=== PATIENT | female | born 1985 | race Caucasian/White ===

== ENCOUNTER 2021-04-04 15:08 | Emergency (ER) | payer OTHER, SELFPAY ==
--- NOTE | 2021-04-04 | ECG_ITS ---
Test Reason : CHEST PAIN Blood Pressure : / mmHG Vent. Rate : 100 BPM Atrial Rate : 100 BPM P-R Int : 134 ms QRS Dur : 078 ms QT Int : 356 ms P-R-T Axes : 068 069 032 degrees QTc Int : 459 ms Normal sinus rhythm Normal ECG When compared with ECG of 11-APR-2012 23:38, No significant change was found Referred By: Generic ED Physician Electronically Signed By:GLORIA LIM
--- NOTE | ~2021-04-04 | XR_ITS ---
EXAMINATION: XR CHEST CLINICAL INFORMATION: Chest pain COMPARISON: Chest radiograph 08/16/2007 TECHNIQUE: Frontal view of the chest was obtained. FINDINGS: No significant abnormality is noted involving the heart, lungs, mediastinum, bony thorax or soft tissues. Since 2006, there is been progression of some minimal degenerative changes in the thoracic spine. XR/XR chest 1V IMPRESSION: Unremarkable examination. No acute intrathoracic disease.
[2021-04-04 16:09] VITALS: BP 137/77; PULSE 117; RESP 18; TEMP 37.3; O2SAT 99
[2021-04-04 16:39] VITALS: BP 121/69; PULSE 90; RESP 18; TEMP 36.9; O2SAT 98; BMI 36.1
--- NOTE | 2021-04-04 16:55 | ED_ITS ---
HPI - Chest Pain General Chief Complaint: Chest Pain Stated Complaint: chest pain Time Seen by Provider: 04/04/21 16:52 Source: patient Mode of arrival: ambulatory Limitations: no limitations History of Present Illness MD complaint: chest pain Onset (ago): hour(s) (several) Timing of current episode: constant Onset: during rest Pain location: substernal Pain radiation: none Severity: moderate Quality: burning Relieving factors: nothing Exacerbating factors: nothing Associated symptoms: nausea Treatment prior to arrival: none Related Data Previous Rx's Medication Instructions Recorded omeprazole 20 mg capsule,delayed 20 mg PO DAILY #21 cap 04/04/21 release Allergies Allergy/AdvReac Type Severity Reaction Status Date / Time oxycodone [From Percocet] Allergy Mild ITCH/HIVES Unverified 05/06/20 15:20 BLUE CHEESE Allergy Unknown HIVES Uncoded 05/06/20 15:20 Percocet Allergy Unknown hives Uncoded 05/16/12 00:00 Review of Systems Review of Systems: Constitutional : No Weight loss, No Fever, No Chills ENT/Mouth : No sore throat, No Rhinorrhea Eyes: No Eye Pain, No Swelling Cardiovascular : pos Chest Pain, no SOB, no Dyspnea on Exertion, No Orthopnea, No Edema, No Palpitations Respiratory : No Cough, No Sputum Gastrointestinal : pos Nausea, No Vomiting, No Diarrhea, No abdominal Pain, No Hematochezia, No Melena Genitourinary : No Dysuria, No Urinary Frequency Musculoskeletal : No joint pain, No Myalgias, No Joint Swelling Skin : No Skin Lesions, No rash Neuro : No Weakness, No Numbness, No Dizziness, No Headache Psych : No Anxiety/Panic, No Depression Heme/Lymph: No Bruising, No Lymphadenopathy Endocrine : No Polyuria, No Polydipsia All other systems reviewed and are negative [facility] Past Medical History Attestation statement: The following information was validated with the patient. Medical History (Updated 04/04/21 @ 19:01 by Rhonda Bettencourt DO) Encounter for behavioral health screening GERD (gastroesophageal reflux disease) History of behavioral and mental health problems Surgical History (Updated 04/04/21 @ 17:06 by Rhonda Bettencourt DO) H/O section Social History Social History (Updated 04/04/21 @ 17:06 by Rhonda Bettencourt DO) Patient Tobacco Use Status: Never used Tobacco Use of substances other than those prescribed or required for medical reasons: No Advance Directives: No Advance Directives Information Provided: No Patient : No Physical Exam Vital Signs: Vital Signs: Last Vital Signs Temp 98.5 F 04/04/21 18:28 Pulse 95 04/04/21 18:28 Resp 18 04/04/21 18:28 BP 126/75 04/04/21 18:28 Pulse Ox 98 04/04/21 18:28 Body Mass Index 36.1 Appearance: Alert. Oriented X3. No acute distress. Eyes: Pupils equal, round and reactive to light. ENT: Pharynx normal. Neck: Normal inspection. Neck supple. CVS: Normal heart rate and rhythm. Pulses normal. Respiratory: No respiratory distress. Breath sounds normal. Abdomen: Soft and nontender. Skin: Skin warm and dry. Normal skin color. Normal skin turgor. Extremities: No lower extremity edema. No calf ttp Neuro: Oriented X 3. No motor deficit. No sensory deficit. Course Course Course Narrative: negative workup stable for DC MDM - Chest Pain MDM Narrative Medical decision making narrative: 36 yo female otherwise healthy here with c/o burning chest pain and some nausea started early this AM hx of GERD in the past at this time no dyspnea, PERC negative, no sig cardiac risk factors will obtain troponin x 1, treat with GI cocktail. Abdomen is benign as well. Suspect GERD as source of her discomfort. Lab Data Result diagrams: 04/04/21 18:13 04/04/21 18:13 Labs: Lab Results 04/04/21 04/04/21 04/04/21 Range/Units 18:13 18:13 18:13 WBC 9.8 (4.8-10.8) X10*3/uL RBC 4.69 (4.20-5.50) X10*6/uL Hgb 14.4 (12.0-16.0) g/dl Hct 41.7 (37-47) % MCV 88.9 (80-98) fL MCH 30.7 (27.0-33.0) pg MCHC 34.5 (31.0-35.0) g/dl RDW 12.5 (11.0-16.0) % Plt Count 349 (160-400) X10*3/uL MPV 9.3 L (9.4-12.3) fL Immature Gran % (Auto) 0.7 H (0.0-0.4) % Neut % (Auto) 74.0 H (45-73) % Lymph % (Auto) 19.5 L (20-40) % [place] % (Auto) 5.3 (2-11) % Eos % (Auto) 0.3 (0-4) % Baso % (Auto) 0.2 (0-2) % Lymph # (Auto) 1.9 (1.2-4.9) X10*3/uL [place] # (Auto) 0.5 (0.1-1.2) X10*3/uL Eos # (Auto) 0.0 (0.0-0.4) X10*3/uL Baso # (Auto) 0.0 (0.0-0.2) X10*3/uL Abs Immat Gran (auto) 0.07 H (0.00-0.03) X10*3/uL Absolute Neuts (auto) 7.2 (2.0-8.3) X10*3/uL Absolute Nucleated RBC 0.000 (0.0-0.012) X10*3/uL Nucleated RBC % (auto) 0.0 (0.0-0.2) /100WBC Sodium 139 (135-145) mmol/L Potassium 4.2 (3.3-5.1) mmol/L Chloride 105 (96-108) mmol/L Carbon Dioxide 23 (22-29) mmol/L Anion Gap 15 (12-20) BUN 12 (9-16) mg/dL Creatinine 0.96 (0.5-1.4) mg/dL Estim Creat Clear Calc 76.3 Estimated GFR > 60 Random Glucose 82 (60-115) mg/dL Calcium 9.2 (8.4-10.2) mg/dL Magnesium 2.2 (1.6-2.6) mg/dL Total Bilirubin 0.7 (0.0-1.0) mg/dL Direct Bilirubin 0.2 (0.0-0.5) mg/dL AST 19 (5-31) U/L ALT 16 (0-31) U/L Alkaline Phosphatase 65 (39-117) U/L Troponin I High Sens < 3.5 (<3.5-17.0) ng/L Total Protein 7.0 (6.5-8.0) g/dL Albumin 4.5 (3.5-5.0) g/dL Lipase 33 (8-78) U/L COVID-19 (ISAIAS) (Negative) COVID-19 Clin Com 04/04/21 Range/Units 18:13 WBC (4.8-10.8) X10*3/uL RBC (4.20-5.50) X10*6/uL Hgb (12.0-16.0) g/dl Hct (37-47) % MCV (80-98) fL MCH (27.0-33.0) pg MCHC (31.0-35.0) g/dl RDW (11.0-16.0) % Plt Count (160-400) X10*3/uL MPV (9.4-12.3) fL Immature Gran % (Auto) (0.0-0.4) % Neut % (Auto) (45-73) % Lymph % (Auto) (20-40) % [place] % (Auto) (2-11) % Eos % (Auto) (0-4) % Baso % (Auto) (0-2) % Lymph # (Auto) (1.2-4.9) X10*3/uL [place] # (Auto) (0.1-1.2) X10*3/uL Eos # (Auto) (0.0-0.4) X10*3/uL Baso # (Auto) (0.0-0.2) X10*3/uL Abs Immat Gran (auto) (0.00-0.03) X10*3/uL Absolute Neuts (auto) (2.0-8.3) X10*3/uL Absolute Nucleated RBC (0.0-0.012) X10*3/uL Nucleated RBC % (auto) (0.0-0.2) /100WBC Sodium (135-145) mmol/L Potassium (3.3-5.1) mmol/L Chloride (96-108) mmol/L Carbon Dioxide (22-29) mmol/L Anion Gap (12-20) BUN (9-16) mg/dL Creatinine (0.5-1.4) mg/dL Estim Creat Clear Calc Estimated GFR Random Glucose (60-115) mg/dL Calcium (8.4-10.2) mg/dL Magnesium (1.6-2.6) mg/dL Total Bilirubin (0.0-1.0) mg/dL Direct Bilirubin (0.0-0.5) mg/dL AST (5-31) U/L ALT (0-31) U/L Alkaline Phosphatase (39-117) U/L Troponin I High Sens (<3.5-17.0) ng/L Total Protein (6.5-8.0) g/dL Albumin (3.5-5.0) g/dL Lipase (8-78) U/L COVID-19 (ISAIAS) Negative (Negative) COVID-19 Clin Com See Note ECG Data ECG #1: Attestation: I personally reviewed and interpreted this ECG as follows: ECG interpretation date: 04/04/21 ECG interpretation time: 17:04 Interpretation: Rate: 100 Rhythm: NSR [place]: normal Normal P waves. Normal AZIZA. Normal QRS complex. ST T wave : normal no JAMES qTC: normal prior studies: no acute ischemia The study has been interpreted contemporaneously by me. . Discharge Plan Discharge Clinical Impression: GERD (gastroesophageal reflux disease) Qualifiers: Esophagitis presence: with esophagitis Esophagitis bleeding: without hemorrhage Qualified Code(s): K21.00 - Gastro-esophageal reflux disease with esophagitis, without bleeding Patient Disposition: Home, Self-Care Instructions: Diet for Stomach Ulcers and Gastritis (ED), Gastroesophageal Reflux Disease (ED) Additional Instructions: return to ED for any worsening symptoms or concerns Prescriptions: New omeprazole 20 mg capsule,delayed release(DR/EC) 20 mg PO DAILY Qty: 21 RF: 0 Referrals: Physician,Unknown [Primary Care Provider] - 2 days (if not better)
[2021-04-04] MEDS: Lidocaine HCl Viscous 2 % 15 ML SOLUTION MUCOUS MEM (17:39)
[2021-04-04] MEDS: Magnesium Hydrox/Alum Hydrox 30 ML ORAL.SUSP PO (17:39)
[2021-04-04] MEDS: Famotidine 20 MG TABLET PO (17:40)
[2021-04-04 18:20] LABS: MANUAL DIFF FLAG NO
[2021-04-04] MEDS: Omeprazole 20 MG CAPSULE.DR PO (18:26)
[2021-04-04 18:28] VITALS: BP 126/75; PULSE 95; RESP 18; TEMP 36.9; O2SAT 98
[2021-04-04 18:38] LABS: Basophils Percent Auto 0.2 % (0-2); Eosinophils Percent Auto 0.3 % (0-4); Hematocrit 41.7 % (37-47); Hemoglobin 14.4 g/dl (12.0-16.0); Imm Gran Abs Auto 0.07 X10*3/uL (0.00-0.03); Imm Gran Pct Auto 0.7 % (0.0-0.4); Lymphocytes Absolute Auto 1.9 X10*3/uL (1.2-4.9); Lymphocytes Percent Auto 19.5 % (20-40); Mean Corpuscular HGB Conc 34.5 g/dl (31.0-35.0); Mean Corpuscular Hemoglobin 30.7 pg (27.0-33.0); Mean Corpuscular Volume 88.9 fL (80-98); Mean Platelet Volume 9.3 fL (9.4-12.3); Monocytes Absolute Auto 0.5 X10*3/uL (0.1-1.2); Monocytes Percent Auto 5.3 % (2-11); Neutrophils Absolute Auto 7.2 X10*3/uL (2.0-8.3); Platelet Count 349 X10*3/uL (160-400); Red Blood Count 4.69 X10*6/uL (4.20-5.50); Red Cell Distribution Width 12.5 % (11.0-16.0); White Blood Count 9.8 X10*3/uL (4.8-10.8)
[2021-04-04 18:40] LABS: COVID-19 Test Negative (Negative)
[2021-04-04 18:50] LABS: Alanine Aminotransferase 16 U/L (0-31); Albumin Level 4.5 g/dL (3.5-5.0); Alkaline Phosphatase 65 U/L (39-117); Anion Gap 15 (12-20); Aspartate Amino Transferase 19 U/L (5-31); Bilirubin Direct 0.2 mg/dL (0.0-0.5); Bilirubin Total 0.7 mg/dL (0.0-1.0); Blood Urea Nitrogen 12 mg/dL (9-16); Calcium 9.2 mg/dL (8.4-10.2); Carbon Dioxide 23 mmol/L (22-29); Chloride 105 mmol/L (96-108); Creatinine Clr Calc Pharmacy 76.3; Estimated Glomerular Filt Rate > 60; Glucose Random 82 mg/dL (60-115); Lipase 33 U/L (8-78); Magnesium 2.2 mg/dL (1.6-2.6); Potassium 4.2 mmol/L (3.3-5.1); Sodium 139 mmol/L (135-145); Troponin-I High Sensitivity < 3.5 ng/L (<3.5-17.0)
== END 2021-04-04 19:13 | disposition home or self-care (01) ==
PROVIDERS: Emergency Provider Emergency Medicine
DX: K21.00 Gastro-esophageal reflux disease with esophagitis, without bleeding (principal); R07.9 Chest pain, unspecified; Z20.822 Contact with and (suspected) exposure to COVID-19
CPT/HCPCS: 36415; 71045; 80048; 80076; 83690; 83735; 84484; 85025; 87635; 93005; 99283; 99285

== ENCOUNTER 2022-03-20 12:00 | Emergency (ER) | payer OTHER, SELFPAY ==
--- NOTE | 2022-03-20 12:01 | ECG_ITS ---
Test Reason : RAPID HEARTRATE Blood Pressure : / mmHG Vent. Rate : 098 BPM Atrial Rate : 098 BPM P-R Int : 138 ms QRS Dur : 084 ms QT Int : 370 ms P-R-T Axes : 065 038 029 degrees QTc Int : 472 ms Normal sinus rhythm Normal ECG When compared with ECG of 04-APR-2021 16:12, No significant change was found Referred By: Generic ED Physician Electronically Signed By:MARIANA BRIGHT MD
[2022-03-20 12:38] VITALS: BP 112/68; PULSE 97; RESP 16; TEMP 36.6; O2SAT 98; BMI 32.2
== END 2022-03-20 20:46 | disposition left against medical advice (07) ==
PROVIDERS: Emergency Provider Emergency Medicine
DX: R00.2 Palpitations (principal)
CPT/HCPCS: 93005; 99283

== ENCOUNTER 2022-08-13 05:04 | Emergency (ER) | payer OTHER, SELFPAY ==
[2022-08-13 05:27] VITALS: BP 138/81; PULSE 80; RESP 16; TEMP 36.5; O2SAT 96; BMI 31.4
[2022-08-13 05:42] VITALS: O2SAT 96
[2022-08-13 05:57] LABS: COVID-19 Test Negative (Negative); IDNOW Serial# BCCEAD1C
--- OUTSIDE RECORDS SUMMARY | 2022-08-13 05:57 | XMS_ITS | Continuity of Care Document ---
:1985 Demographics Address [address] [phone] Mobile Email Address Preferred Language Frisian Marital Status Single Yazidi Affiliation Mosque Race White Ethnic Group Not or
[2022-08-13 06:00] LABS: IDNOW Serial# 9DB6401D; Influenza A Negative (Negative); Influenza B2 Negative (Negative)
--- NOTE | 2022-08-13 06:31 | PC.NURSE ---
PT reports productive cough, N/V, congestion. States 6/10 chest pain d/t coughing. Swabs collected and sent to lab.
[2022-08-13 07:29] LABS: Appearance Urine Clear; Color Urine Yellow; Glucose Urine UA Negative (Negative); Leukocyte Esterase Urine Negative (Negative); Nitrite Urine Negative (Negative); PH 5.5 (5.0-9.0); Specific Gravity - Urine >= 1.030 (1.005-1.025); Urine Blood Negative (Negative); Urine Ketones Negative (Negative); Urine Protein Negative (Neg-Trace)
[2022-08-13 07:30] LABS: UPreg QC Valid YES; Urine Pregnancy NEGATIVE (NEGATIVE)
--- NOTE | 2022-08-13 07:38 | ED.URI ---
HPI - URI/Sore Throat General Chief Complaint: Upper Respiratory Symptoms Stated Complaint: cough, vomiting Time Seen by Provider: 08/13/22 06:40 Source: patient Mode of arrival: ambulatory History of Present Illness HPI Narrative: 37-year-old female without significant past medical history of asthma comes in with complaints of cough, congestion as well as cough induced vomiting for approximately 1 week. Patient states that she has been coughing so much that she has vomited and then yesterday she noted some blood flecking in the sputum. Related Data Previous Rx's Medication Instructions Recorded omeprazole 20 mg capsule,delayed 20 mg PO DAILY #21 caps 04/04/21 release azithromycin 250 mg tablet 250 mg PO DAILY 4 days #4 tabs 08/13/22 Allergies Allergy/AdvReac Type Severity Reaction Status Date / Time oxycodone [From Percocet] Allergy Mild ITCH/HIVES Unverified 05/06/20 15:20 BLUE CHEESE Allergy Unknown HIVES Uncoded 05/06/20 15:20 Percocet Allergy Unknown hives Uncoded 05/16/12 00:00 Review of Systems Review of Systems: Pertinent positives and negatives as stated in HPI 10 point review of systems is otherwise negative. PMFSH Past Medical History Source: nursing notes reviewed Medical History Encounter for behavioral health screening GERD (gastroesophageal reflux disease) History of behavioral and mental health problems Surgical History H/O section Social History Social History Alcohol intake: never Patient Tobacco Use Status: Never used Tobacco Smoked in Last 30 Days: No Use of substances other than those prescribed or required for medical reasons: No Advance Directives: No Patient : No Physical Exam Vital Signs: Vital Signs: Last Vital Signs Temp 97.7 F 08/13/22 05:27 Pulse 80 08/13/22 05:27 Resp 16 08/13/22 05:27 BP 138/81 08/13/22 05:27 Pulse Ox 96 08/13/22 05:42 O2 Del Method 08/13/22 05:42 BMI result Body Mass Index 31.4 VITAL SIGNS: Reviewed. GENERAL: Well developed, well nourished, in no acute distress. HEAD: Normocephalic/atraumatic EYES: PERRLA, EOMI EARS: Ext canals without abnormality, TMs non-bulging and non-erythematous NOSE: Nares patent bilateral OROPHARYNX: no oral lesions noted, posterior pharynx clear and non-erythematous without noted tonsillar enlargement/erythema/exudates NECK: Supple, no adenopathy LUNGS: Normal breath sounds. No adventitious sounds or accessory muscle use. SpO2<96> CARDIOVASCULAR: Regular rate and rhythm without noted murmurs ABDOMEN: Soft, non-tender, non-distended with bowel sounds. MUSCULOSKELETAL: No tenderness, deformities, or effusions noted on gross inspection. EXTREMITIES: No cyanosis, clubbing or edema. SKIN: Inspection of the skin reveals no rashes NEUROLOGIC: Alert and oriented x 4. Strength and sensation to light touch were grossly intact x 4. Course Course Course Narrative: I reviewed the laboratory results which shows negative viral testing, but patient was reassured that this does not indicate she may not have had something earlier in the week and that her cough has persisted. I did recommend that she change medications for cough control and will place her on a Z-Thanh. Chest x-ray was negative for evidence pneumonia and I did order a urinalysis and urine due to initial reports of nausea and vomiting. There is no evidence of urinary tract infection or . Medical Decision Making Medical Decision Making MDM Narrative: 37-year-old female with history and clinical presentation most suggestive of possible influenza but persistence of cough which is not unusual, patient is afebrile and otherwise oxygenating well on room air. She has no history of asthma. Differential Diagnosis Viral infection, pneumonia Lab Data MDM Lab Attestation statement: I reviewed the patient's lab results. Please see the course Section for discussion of laboratory results. Labs: Lab Results 08/13/22 08/13/22 08/13/22 Range/Units 05:39 05:39 07:21 Urine Color Yellow Urine Appearance Clear Urine pH 5.5 (5.0-9.0) Ur Specific [place] >= 1.030 H (1.005-1.025) Urine Protein Negative (Neg-Trace) mg/dL Urine Glucose (UA) Negative (Negative) mg/dL Urine Ketones Negative (Negative) mg/dL Urine Blood Negative (Negative) Urine Nitrite Negative (Negative) Ur Leukocyte Esterase Negative (Negative) Urine Test (NEGATIVE) COVID-19 (ISAIAS) Negative (Negative) COVID-19 Clin Com See Note Influenza Type A (MIRA) Negative (Negative) Influenza Type B (MIRA) Negative (Negative) Influenza A & B Note See Note 08/13/22 Range/Units 07:21 Urine Color Urine Appearance Urine pH (5.0-9.0) Ur Specific [place] (1.005-1.025) Urine Protein (Neg-Trace) mg/dL Urine Glucose (UA) (Negative) mg/dL Urine Ketones (Negative) mg/dL Urine Blood (Negative) Urine Nitrite (Negative) Ur Leukocyte Esterase (Negative) Urine Test NEGATIVE (NEGATIVE) COVID-19 (ISAIAS) (Negative) COVID-19 Clin Com Influenza Type A (MIRA) (Negative) Influenza Type B (MIRA) (Negative) Influenza A & B Note Radiology Impression Radiologist Impression: My interpretation agrees with the radiology impression of imaging. Discharge Plan Discharge Clinical Impression: Bronchitis, Upper respiratory infection Patient Disposition: Home, Self-Care Instructions: Upper Respiratory Infection (ED), Acute Bronchitis (ED) Additional Instructions: 1. I recommend [id number] Tylenol/ibuprofen for any body aches, temperatures greater than 100.4. 2. Complete the course of antibiotics that I have ordered. 3. I recommend that you change from [place] as a control of your symptoms to NyQuil/DayQuil. Return to the ER for any worsening symptoms. Prescriptions: New azithromycin 250 mg tablet 250 mg PO DAILY 4 Days Qty: 4 0RF Rx Instructions: start on day 2 of therapy No Action omeprazole 20 mg capsule,delayed release(DR/EC) 20 mg PO DAILY Qty: 21 0RF Rx Instructions: take daily for 2 weeks, every other day for the last week Referrals: Jordana Ansari, DO [Primary Care Provider] -
== END 2022-08-13 08:03 | disposition home or self-care (01) ==
PROVIDERS: Emergency Provider Student in an Organized Health Care Education/Training Program; PCP Family Medicine
DX: J40 Bronchitis, not specified as acute or chronic (principal); J06.9 Acute upper respiratory infection, unspecified; R05.9 Cough, unspecified; Z20.822 Contact with and (suspected) exposure to COVID-19; Z79.899 Other long term (current) drug therapy
CPT/HCPCS: 71046; 81003; 81025; 87502; 87635; 99284

== ENCOUNTER 2022-08-30 10:54 | Emergency (ER) | payer OTHER, SELFPAY ==
--- NOTE | ~2022-08-30 | XR_ITS ---
EXAMINATION: XR CHEST CLINICAL INFORMATION: Shortness of breath COMPARISON: August 13, 2022 and April 04, 2021, and August 16, 2007 TECHNIQUE: 2 views of the chest were obtained. FINDINGS: No significant abnormality is noted involving the heart, lungs, mediastinum, bony thorax or soft tissues. Some vascular densities with probable minor atelectasis seen at the left base. XR/XR chest 2V IMPRESSION: No significant acute disease.
[2022-08-30 11:15] VITALS: BP 134/74; PULSE 90; RESP 18; TEMP 35.9; O2SAT 95; BMI 24.3
[2022-08-30 11:39] LABS: Appearance Urine Hazy; Color Urine Yellow; Glucose Urine UA Negative (Negative); Leukocyte Esterase Urine Negative (Negative); Nitrite Urine Negative (Negative); Urine Blood Negative (Negative); Urine Ketones Negative (Negative); Urine Protein Negative (Neg-Trace)
[2022-08-30 11:54] LABS: COVID-19 Test Negative (Negative); IDNOW Serial# 55D5AD1C; IDNOW Serial# 9DB6401D; Influenza A Negative (Negative); Influenza B2 Negative (Negative)
--- NOTE | 2022-08-30 12:46 | PC.NURSE ---
patient a/ox4 . jesúsrla . heart rate regular at 90 beats per minute . breathing even and unlabored . lungs clear throughout . patient has dry and non productive . skin pink warm . patient reports 8 out of 10 pain in right side of lung . patient aware of plan of care .
[2022-08-30] MEDS: Ketorolac Tromethamine 15 MG/ML VIAL IM (13:53)
--- NOTE | 2022-08-30 13:58 | PC.NURSE ---
A/ox4 /. VSS . went over discharge instructions ordered by provider . patient to follow up with primary care . patient to return if symptoms worsen . no questions at this time .
--- NOTE | 2022-08-30 14:01 | ED_ITS ---
HPI - URI/Sore Throat General Chief Complaint: Extremity Problem Stated Complaint: back pain, sob Time Seen by Provider: 08/30/22 12:28 Source: patient and family Mode of arrival: ambulatory Limitations: no limitations History of Present Illness HPI Narrative: 37-year-old female with past medical history of GERD and recently diagnosed with bronchitis presents to the emergency department, with her mother, for complaints rib pain. She states she cough this morning and her disease snap to the right ribs increased pain with deep breathing. She states she was seen in the emergency department on 08/13/2022 for complaints of cough and congestion and treated with a 5 day course of azithromycin which patient states she completed. She denies any shortness of breath, chest pain, abdominal pain, nausea, vomiting, fever, chills, headache, or vision changes. MD elicited complaint: cough Onset (ago): week(s) Consistency: constant Severity: moderate Able to tolerate fluids by mouth: Yes Exacerbating factors: deep breaths Associated symptoms: denies other symptoms Treatments prior to arrival: none Related Data Previous Rx's Medication Instructions Recorded omeprazole 20 mg capsule,delayed 20 mg PO DAILY #21 caps 04/04/21 release azithromycin 250 mg tablet 250 mg PO DAILY 4 days #4 tabs 08/13/22 benzonatate 100 mg capsule 100 mg PO TID PRN cough #14 caps 08/30/22 Allergies Allergy/AdvReac Type Severity Reaction Status Date / Time oxycodone [From Percocet] Allergy Mild ITCH/HIVES Verified 08/13/22 07:46 BLUE CHEESE Allergy Unknown HIVES Uncoded 08/13/22 07:46 Percocet Allergy Unknown hives Uncoded 08/13/22 07:46 Review of Systems Review of Systems: In addition to documented HPI above, the additional ROS was obtained: Constitutional: No Weight loss, No Fever, No Chills ENT/Mouth: No Ear Pain, No Nasal Congestion, No Sinus Pain, No Hoarseness, No sore throat, No Rhinorrhea, No Swallowing Difficulty Cardiovascular: No Chest Pain, No SOB Respiratory: No Sputum, No Wheezing Gastrointestinal: No Nausea, No Vomiting, No Diarrhea, No Constipation, No Abdominal pain Genitourinary: No Dysuria, No Urinary Frequency, No Hematuria, No Urinary Incontinence/retention, No Urgency, No Flank Pain Musculoskeletal: No joint pain, No Myalgias, No Joint Swelling Skin: No Skin Lesions, No rash Neuro: No Weakness, No Numbness, No Paresthesias Yes all other systems are reviewed and are negative [facility] Past Medical History Attestation statement: The following information was validated with the patient. Source: old records reviewed Medical History Encounter for behavioral health screening GERD (gastroesophageal reflux disease) History of behavioral and mental health problems Surgical History H/O section Social History Social History Alcohol intake: never Patient Tobacco Use Status: Never used Tobacco Smoked in Last 30 Days: No Advance Directives: No Advance Directives Information Provided: No Patient : No Physical Exam Vital Signs: Vital Signs: Last Vital Signs Temp 96.6 F L 08/30/22 11:15 Pulse 90 08/30/22 11:15 Resp 18 08/30/22 11:15 BP 134/74 08/30/22 11:15 Pulse Ox 95 08/30/22 11:15 O2 Del Method 08/30/22 11:15 BMI result Body Mass Index 24.3 Nursing notes and vital signs reviewed. GENERAL APPEARANCE: A&0 x 4, generally well appearing, no acute distress HENMT: Normal to inspection, atraumatic, face symmetrical. Normal external ears, nose, and oropharynx clear. EYE: PERRLA, EOM intact, structures appear normal NECK: Supple without lymphadenopathy. No stiffness or restricted ROM. CHEST: Normal to inspection HEART: Normal rate and regular rhythm, normal S1/S2, no M/R/G LUNGS: LS CTA, moving air well. Able to speak in complete sentences. No crackles, wheezes, or rhonchi auscultated ABDOMEN: Soft, nontender, nondistended. Normal bowel sounds noted BACK: No CVAT, no obvious deformity, normal cervical and thoracolumbar ROM EXTREMITIES: Moving all extremities without difficulty. No cyanosis, clubbing, or edema. Normal capillary refill. NEUROLOGICAL: Alert and oriented, moving all 4 extremities with equal strength. CN not formally tested but appearing grossly intact. Observed to ambulate with normal gait. Cognition normal SKIN: Warm and dry without any lesions, rash, or visible sores PSYCH: Cooperative, normal affect, normal thought process Medications Administered Discontinued Medications Generic Name Dose Route Start Last Admin Trade Name Martha PRN Reason Stop Dose Admin Ketorolac Tromethamine 15 mg 08/30/22 13:27 08/30/22 13:53 Ketorolac Tromethamine 15 Mg/Ml Vial IM 08/30/22 13:28 15 mg ONCE ONE Administration Medical Decision Making Medical Decision Making MDM Narrative: 37-year-old female with past medical history of GERD and recently diagnosed with bronchitis presents to the emergency department, with her mother, for complaints rib pain. She states she cough this morning and her disease snap to the right r ibs increased pain with deep breathing. Chest x-ray with no significant acute disease, no significant abnormality involving heart, lungs, mediastinum, bony thorax, or soft tissues, probable minor atelectasis seen at the left base. Urinalysis negative for signs of infection. Serology negative for COVID-19, influenza A, and influenza B. PERC score 0. History, physical exam, and diagnostic exams consistent with chronic cough secondary to upper respiratory infection. Low suspicion for ACS, PE, pneumonia, or costochondritis. Patient is safe for discharge at this time with plan to manage symptoms the [id number] Tylenol and/or cough/cold medication for relief of symptoms. Prescription for benzonatate capsules given for management of cough. Discussed possibility of prescribing short-term narcotics for pain, however; patient declines narcotics at this time as she has a 3-year-old at home care for. HPI, PE, diagnostics, and plan discussed with patient and family with no unanswered q uestions at this time. Discussed with patient that she has an upper respiratory infection, most likely viral and that no prescriptions are needed at this time. Patient educated to return to the emergency department with chest pain, increased shortness of breath, cough lasting greater than 1 week, fever despite taking antipyretics, or any other concerning emergent symptoms. Recommended to follow-up with her primary care provider for further treatment and management. *Refer to Course for additional information on consultations, diagnostic interpretation, consultations, emergency department stay, conversations with patient and family, shared decision making with patient, and more information on medical decision making* Lab Data [facility] Lab Attestation statement: I reviewed the patient's lab results. Labs: Lab Results 01/07/1208/30/22 08/30/22 Range/Units 11:24 11:24 11:28 Urine Color Yellow Urine Appearance Hazy Urine pH 6.0 (5.0-9.0) Ur Specific [place] 1.020 (1.005-1.025) Urine Protein Negative (Neg-Trace) mg/dL Urine Glucose (UA) Negative (Negative) mg/dL Urine Ketones Negative (Negative) mg/dL Urine Blood Negative (Negative) Urine Nitrite Negative (Negative) Ur Leukocyte Esterase Negative (Negative) COVID-19 (ISAIAS) Negative (Negative) COVID-19 Clin Com See Note Influenza Type A (MIRA) Negative (Negative) Influenza Type B (MIRA) Negative (Negative) Influenza A & B Note See Note Radiology Impression Radiologist Impression: I have independently interpreted the chest x-ray showing no rib fracture no pneumonia, and showing some vascular densities with probable minor atelectasis in the left base. EXAMINATION: XR CHEST CLINICAL INFORMATION: Shortness of breath COMPARISON: August 13, 2022 and April 04, 2021, and August 16, 2007 TECHNIQUE: 2 views of the chest were obtained. FINDINGS: No significant abnormality is noted involving the heart, lungs, mediastinum, bony thorax or soft tissues. Some vascular densities with probable minor atelectasis seen at the left base. XR/XR chest 2V IMPRESSION: No significant acute disease. Dictated By: Kendall Medellin MD Signed By: <Electronically signed by Kendall Medellin MD in OV> 08/30/22 1248 DD/ 1144 TD/TT:? 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 Your history and physical exam are consistent with a strained muscle due to coughing. A cough suppressant has been prescribed to preferred pharmacy. Please take as directed. Please return to the emergency department with any new, worsening, or concerning emergent symptoms. Please follow-up with your primary care provider for further treatment and management. Prescriptions: New benzonatate 100 mg capsule 100 mg PO TID PRN (Reason: cough) Qty: 14 0RF No Action omeprazole 20 mg capsule,delayed release(DR/EC) 20 mg PO DAILY Qty: 21 0RF Rx Instructions: take daily for 2 weeks, every other day for the last week azithromycin 250 mg tablet 250 mg PO DAILY 4 Days Qty: 4 0RF Rx Instructions: start on day 2 of therapy Referrals: Jaky Jeong NP [Primary Care Provider] - Stand Alone Forms: Work/School Release Interventions: ED Discharge Assessment Last Done: 08/30/22 14:00 Discharge Date/Time: 08/30/22 14:01 Print Language: [place]
== END 2022-08-30 14:01 | disposition home or self-care (01) ==
PROVIDERS: Physician Assistant; Emergency Provider Student in an Organized Health Care Education/Training Program; PCP Nurse Practitioner Family
DX: M54.50 Low back pain, unspecified (principal); R06.02 Shortness of breath; R05.9 Cough, unspecified; Z20.828 Contact with and (suspected) exposure to other viral communicable diseases; Z79.899 Other long term (current) drug therapy
CPT/HCPCS: 71046; 81003; 87502; 87635; 96372; 99284; J1885

== ENCOUNTER 2023-03-10 23:25 | Emergency (ER) | payer OTHER, SELFPAY ==
[2023-03-10 23:32] VITALS: BP 146/92; PULSE 112; O2SAT 100
--- NOTE | 2023-03-10 23:32 | ECG_ITS ---
Test Reason : PALPITATIONS Blood Pressure : / mmHG Vent. Rate : 090 BPM Atrial Rate : 090 BPM P-R Int : 152 ms QRS Dur : 082 ms QT Int : 368 ms P-R-T Axes : 069 046 021 degrees QTc Int : 450 ms Normal sinus rhythm with sinus arrhythmia Nonspecific T wave abnormality Abnormal ECG When compared with ECG of 20-MAR-2022 12:35, Nonspecific T wave abnormality now evident in Anterior leads Referred By: Generic ED Physician Electronically Signed By:Murali Tello
[2023-03-10 23:46] VITALS: BP 125/61; PULSE 78; RESP 12; O2SAT 100; BMI 32.1
--- NOTE | 2023-03-10 23:50 | ED.ARRPALP ---
HPI - Arrhythmia/Palpitations General Chief Complaint: Arrhythmia/Palpitations Stated Complaint: Shortness of breath Time Seen by Provider: 03/10/23 23:46 Source: patient Mode of arrival: ambulatory Limitations: no limitations History of Present Illness HPI narrative: History of anxiety/panic attack used to be on medication. Which she stopped taking them restarted a week ago while watching TV patient noticed sudden onset of palpitation which lasted only for few minutes checked her pulse rate was 160 history of same in the past patient after having the palpitation episode patient felt anxious and panicked called the 911 and after arrival patient heart rate in 70s patient has been seen by master automotive glass technician in the past but never had any hard no chest pain no syncope episode no fever or chills Related Data Previous Rx's Medication Instructions Recorded omeprazole 20 mg capsule,delayed 20 mg PO DAILY #21 caps 04/04/21 release azithromycin 250 mg tablet 250 mg PO DAILY 4 days #4 tabs 08/13/22 benzonatate 100 mg capsule 100 mg PO TID PRN cough #14 caps 08/30/22 Allergies Allergy/AdvReac Type Severity Reaction Status Date / Time oxycodone [From Percocet] Allergy Mild ITCH/HIVES Verified 08/13/22 07:46 BLUE CHEESE Allergy Unknown HIVES Uncoded 08/13/22 07:46 Percocet Allergy Unknown hives Uncoded 08/13/22 07:46 Review of Systems Review of Systems: Yes all other systems are reviewed and are negative [facility] Past Medical History Medical History Encounter for behavioral health screening GERD (gastroesophageal reflux disease) History of behavioral and mental health problems Surgical History H/O section Social History Social History Alcohol intake: never Patient Tobacco Use Status: Never used Tobacco Smoked in Last 30 Days: No Use of substances other than those prescribed or required for medical reasons: No Advance Directives: No Advance Directives Information Provided: Yes Patient : No Physical Exam Vital Signs: Vital Signs: Last Vital Signs Temp 98.1 F 03/11/23 00:59 Pulse 65 03/11/23 00:59 Resp 21 H 03/11/23 00:59 BP 114/63 03/11/23 00:59 Pulse Ox 98 03/11/23 00:59 O2 Del Method Room Air 03/11/23 00:59 BMI result Body Mass Index 32.1 Appearance: Alert. Oriented X3. No acute distress. Slightly anxious Eyes: PERRLA, No Nystagmus ENT: Pharynx normal. Oral Mucosa moist Neck: Normal inspection. Neck supple. CVS: Normal heart rate and rhythm. Pulses normal. No murmur/rubs/gallops Respiratory: No respiratory distress. Equal air entry bilateral, no wheezing/rales/rhonchi Abdomen: Soft and nontender. Bowel sounds are present, no mass palpable, no CVA tenderness Skin: Skin warm and dry. Normal skin color. Normal skin turgor. Extremities: No lower extremity edema. No calf tenderness Neuro: Oriented X 3. No motor deficit. Medications Administered Discontinued Medications Generic Name Dose Route Start Last Admin Trade Name Freq PRN Reason Stop Dose Admin Lorazepam 0.5 mg 03/11/23 00:02 03/11/23 00:10 Lorazepam 0.5 Mg Tablet PO 03/11/23 00:03 0.5 mg ONCE ONE Administration Medical Decision Making Independent Interpretation I performed an independent interpretation of an: EKG Interpretation: Normal sinus rhythm heart rate 90 beats per minute PACs no acute ST-T changes no acute ischemia Discharge Plan Discharge Clinical Impression: Palpitations, Anxiety Patient Disposition: Home, Self-Care Instructions: Heart Palpitations (ED), Anxiety (ED) Additional Instructions: Relax and continue your medication as prescribed Follow-up with PCP /Cardiology Prescriptions: No Action omeprazole 20 mg capsule,delayed release(DR/EC) 20 mg PO DAILY Qty: 21 0RF Rx Instructions: take daily for 2 weeks, every other day for the last week azithromycin 250 mg tablet 250 mg PO DAILY 4 Days Qty: 4 0RF Rx Instructions: start on day 2 of therapy benzonatate 100 mg capsule 100 mg PO TID PRN (Reason: cough) Qty: 14 0RF Interventions: ED Discharge Assessment Last Done: 03/11/23 01:03 Discharge Date/Time: 03/11/23 01:03
[2023-03-11] MEDS: LORazepam 0.5 MG TABLET PO (00:10)
[2023-03-11 00:59] VITALS: BP 114/63; PULSE 65; RESP 21; TEMP 36.7; O2SAT 98
== END 2023-03-11 01:03 | disposition home or self-care (01) ==
PROVIDERS: Emergency Provider Internal Medicine; PCP Internal Medicine
DX: R00.2 Palpitations (principal); F41.9 Anxiety disorder, unspecified; R06.02 Shortness of breath; Z79.899 Other long term (current) drug therapy
CPT/HCPCS: 93005; 99283; 99285

== ENCOUNTER → 2023-03-10 23:32 | Outpatient (BNV) | payer OTHER, SELFPAY | PROVIDERS: Emergency Provider Internal Medicine; PCP Internal Medicine; Visit Provider Internal Medicine Cardiovascular Disease | DX: I49.9 Cardiac arrhythmia, unspecified (principal) | CPT/HCPCS: 93010 ==

== ENCOUNTER 2023-04-14 13:46 | Emergency (ER) | payer OTHER, MEDICAID, SELFPAY ==
[2023-04-14 13:52] VITALS: BP 135/81; PULSE 96; RESP 18; TEMP 36.7; O2SAT 99; BMI 29.0
--- NOTE | 2023-04-14 13:53 | ED_ITS ---
HPI - Psych General Chief Complaint: Psychiatric Symptoms Stated Complaint: anxiety/ depression Time Seen by Provider: 04/14/23 15:11 Source: patient Mode of arrival: ambulatory Limitations: no limitations History of Present Illness HPI Narrative: 38-year-old female with history of PTSD, anxiety, depression presents the ER with complaints of increasing anxiety over the last 4 days. Patient denies suicidal or homicidal ideations. Auditory or visual hallucinations. Of note patient had been non med compliant until February when most of her medications were restarted by a psychiatrist. She has been seen by both psychiatry and a therapist. She has follow-up appointments next week with them with plans to restart her Lamictal. Patient reports that she is a [id number] mom. She does have a 4-year-old child. She reports that she has a lot of stress taking care of him at home. No physical complaint Related Data Previous Rx's Medication Instructions Recorded omeprazole 20 mg capsule,delayed 20 mg PO DAILY #21 caps 04/04/21 release azithromycin 250 mg tablet 250 mg PO DAILY 4 days #4 tabs 08/13/22 benzonatate 100 mg capsule 100 mg PO TID PRN cough #14 caps 08/30/22 hydroxyzine pamoate 50 mg capsule 50 mg PO Q8H PRN anxiety #20 caps 04/14/23 (Vistaril) Allergies Allergy/AdvReac Type Severity Reaction Status Date / Time oxycodone [From Percocet] Allergy Mild ITCH/HIVES Verified 04/14/23 13:57 BLUE CHEESE Allergy Unknown HIVES Uncoded 08/13/22 07:46 Percocet Allergy Unknown hives Uncoded 08/13/22 07:46 Review of Systems Review of Systems: Yes all other systems are reviewed and are negative Constitutional: Constitutional: Reports no additional constitutional complaints, Denies body ache(s), Denies chills, Denies fever(s), Denies headache(s) and Denies weakness Eyes: Eyes: Reports no additional eye complaints and Denies change in vision ENT: Reports system reviewed and no additional complaints, except as documented, Denies dizziness, Denies headache(s), Denies nasal congestion, Denies nasal discharge and Denies neck pain Cardiovascular: Cardiovascular: Reports no additional cardiovascular complaints, Denies chest pain, Denies leg edema and Denies dyspnea Respiratory: Respiratory: Reports no additional respiratory complaints, Denies cough and Denies dyspnea Gastrointestinal: Gastrointestinal: Reports no additional gastrointestinal complaints, Denies abdominal pain, Denies diarrhea, Denies nausea and Denies vomiting Genitourinary: Genitourinary: Reports no additional female genitourinary complaints and Denies urinary incontinence Musculoskeletal: Musculoskeletal: Reports no additional musculoskeletal complaints, Denies back pain, Denies arthralgias, Denies joint swelling, Denies neck pain, Denies numbness and Denies tingling Integumentary/Breasts: Skin/Breast: Reports system reviewed and no additional complaints, except as docu and Denies rash Neurologic: Reports system reviewed and no additional complaints, except as documented, Denies Abnormal speech present, Denies dizziness, Denies heada cipriano(s), Denies numbness, Denies tingling and Denies weakness Psychiatric: Psychiatric: Reports anxiety, Denies depression, Denies paranoia, Denies homicidal ideation and Denies suicidal ideation PMFSH Past Medical History Attestation statement: The following information was validated with the patient. Source: old records reviewed and nursing notes reviewed Medical History Encounter for behavioral health screening GERD (gastroesophageal reflux disease) History of behavioral and mental health problems Surgical History H/O section Social History Social History Alcohol intake: never Patient Tobacco Use Status: Never used Tobacco Smoked in Last 30 Days: No Advance Directives: No Physical Exam Vital Signs: Vital Signs: Last Vital Signs Temp 98.0 F 04/14/23 13:52 Pulse 96 04/14/23 13:52 Resp 18 04/14/23 13:52 BP 135/81 04/14/23 13:52 Pulse Ox 99 04/14/23 13:52 O2 Del Method Room Air 04/14/23 13:52 BMI result Body Mass Index 29.0 Const: General: cooperative, healthy appearing, comfortable and no acute distress Orientation/consciousness: patient oriented x3 Limitations: no limitations HEENT: Head: Yes normal to inspection Ears: hearing grossly normal bilaterally General nose exam: Normal external nose present Face and sinus: Yes normal facial exam Mouth: Normal oral and palatal mucosa present Throat: Yes posterior oropharynx normal Eyes: General: appearance normal, both eyes and all related structures Pupils: Equal, round and reactive pupils present Neck: Neck: Yes normal visual inspection Chest: Chest palpation & inspection: normal inspection of the chest Resp: Effort & Inspection: normal respiratory effort Auscultation: clear to auscultation bilaterally Cardio: Rate: regular rate Rhythm: regular rhythm Peripheral pulses: Peripheral pulses 2+ throughout GI: Inspection: Yes normal to inspection Palpation (GI): Soft to palpation and nontender Auscultation: normal bowel sounds Back/Spine/Pelvis: Thoracic/Lumbar Spine: thoracic and lumbar spine normal to inspection Skin: General skin exam: no rashes or lesions noted Neuro: General: patient oriented x3, no focal motor deficits and normal sensation to monofilament Cranial nerves: Yes Equal, round and reactive pupils present Cognition (Neuro): normal cognition Speech: No Abnormal speech present Gait exam (Neuro): Normal gait present Motor exam (neuro): 5/5 motor strength present throughout Extrem: General: Yes normal to inspection Course Course Course Narrative: This is an RME: Additional HPI, ROS, PE not included below will be deferred to primary provider. Patient is a 38-year-old female presents emergency department with reports of increasing anxiety over the past few days and vague SI but I w ouldn't act on it . Denies hallucinations. She is followed by a med prescribed at [facility]. Denies ETOH or recreational drug usage. Medications Administered Discontinued Medications Generic Name Dose Route Start Last Admin Trade Name Freq PRN Reason Stop Dose Admin Lorazepam 1 mg 04/14/23 16:31 04/14/23 16:36 Lorazepam 1 Mg Tablet PO 04/14/23 16:32 1 mg ONCE ONE Administration Medical Decision Making Medical Decision Making [facility] Narrative: This is a 38-year-old female with a history of anxiety, depression, PTSD who presents to the ER with complaints of increasing anxiety over the last 4 days with no complaints of SI, HI, auditory or visual hallucinations. No reports of substance use. No physical complaints. No concern for acute ingestion or trauma Will order labs, drug screen, crisis consultation Differential Diagnosis Differential Diagnoses: The differential diagnosis associated with the presentation includes Anxiety, depression, adjustment disorder Admission/Observation Consideration of admission/observation: Escalation of care including admission/observation considered No SI, HI or safety concerns that would necessitate admission for inpatient psy ch Consult Healthcare Provider Management of the patient was discussed with: Behavioral Health Provider Patient met with the care team. Plan for discharge home with referral for partial hospitalization. Lab Data MDM Lab Attestation statement: I reviewed the patient's lab results. I reviewed the patient's labs which are unremarkable 04/14/23 15:09 04/14/23 15:09 Labs: Lab Results 04/14/23 04/14/23 04/14/23 Range/Units 14:53 14:53 14:53 WBC (4.8-10.8) X10*3/uL RBC (4.20-5.50) X10*6/uL Hgb (12.0-16.0) g/dl Hct (37.0-47.0) % MCV (80.0-98.0) fL MCH (27.0-33.0) pg MCHC (31.0-35.0) g/dl RDW (11.0-16.0) % Plt Count (160-400) X10*3/uL MPV (9.4-12.3) fL Immature Gran % (Auto) (0.0-0.4) % Neut % (Auto) (45-73) % Lymph % (Auto) (20-40) % [place] % (Auto) (2-11) % Eos % (Auto) (0-4) % Baso % (Auto) (0-2) % Lymph # (Auto) (1.2-4.9) X10*3/uL [place] # (Auto) (0.1-1.2) X10*3/uL Eos # (Auto) (0.0-0.4) X10*3/uL Baso # (Auto) (0.0-0.2) X10*3/uL Abs Immat Gran (auto) (0.00-0.03) X10*3/uL Absolute Neuts (auto) (2.0-8.3) x10*3/uL Absolute Nucleated RBC (0.0-0.012) X10*3/uL Nucleated RBC % (auto) (0.0-0.2) /100WBC Sodium (135-145) mmol/L Potassium (3.3-5.1) mmol/L Chloride (96-108) mmol/L Carbon Dioxide (22-29) mmol/L Anion Gap (12-20) BUN (9-16) mg/dL Creatinine (0.5-1.4) mg/dL Estim Creat Clear Calc Estimated GFR Random Glucose (60-115) mg/dL Calcium (8.4-10.2) mg/dL Total Bilirubin (0.0-1.0) mg/dL AST (5-31) U/L ALT (0-31) U/L Alkaline Phosphatase (39-117) U/L Total Protein (6.5-8.0) g/dL Albumin (3.5-5.0) g/dL Urine Color Dark Yellow Urine Appearance Turbid Urine pH 6.0 (5.0-9.0) Ur Specific [place] >= 1.030 H (1.005-1.025) Urine Protein 30 (1+) H (Neg-Trace) mg/dL Urine Glucose (UA) Negative (Negative) mg/dL Urine Ketones >=160 (Negative) mg/dL Urine Blood Negative (Negative) Urine Nitrite Negative (Negative) Ur Leukocyte Esterase Trace H (Negative) Urine RBC 3-5 H (0-2) /HPF Urine WBC 6-10 H (0-5) /HPF Ur Squamous Epith Cells >20 (0-2) /HPF Urine Bacteria 1+ (None Seen) Hyaline Casts 0-2 (0-2) /LPF Urine Test NEGATIVE (NEGATIVE) Urine Opiates Screen Not Detected (Not Detect) Urine Fentanyl Screen Not Detected (Not Detect) Ur Barbiturates Screen Not Detected (Not Detect) Ur Phencyclidine Scrn Not Detected (Not Detect) Ur Amphetamines Screen Not Detected (Not Detect) U Benzodiazepines Scrn Not Detected (Not Detect) Urine Cocaine Screen Not Detected (Not Detect) U Marijuana (THC) Screen Not Detected (Not Detect) Ethyl Alcohol mg/dL 04/14/23 04/14/23 Range/Units 15:09 15:09 WBC 8.4 (4.8-10.8) X10*3/uL RBC 4.77 (4.20-5.50) X10*6/uL Hgb 14.2 (12.0-16.0) g/dl Hct 41.4 (37.0-47.0) % MCV 86.8 (80.0-98.0) fL MCH 29.8 (27.0-33.0) pg MCHC 34.3 (31.0-35.0) g/dl RDW 12.3 (11.0-16.0) % Plt Count 308 (160-400) X10*3/uL MPV 9.7 (9.4-12.3) fL Immature Gran % (Auto) 0.4 (0.0-0.4) % Neut % (Auto) 72.0 (45-73) % Lymph % (Auto) 21.4 (20-40) % [place] % (Auto) 5.1 (2-11) % Eos % (Auto) 0.7 (0-4) % Baso % (Auto) 0.4 (0-2) % Lymph # (Auto) 1.8 (1.2-4.9) X10*3/uL [place] # (Auto) 0.4 (0.1-1.2) X10*3/uL Eos # (Auto) 0.1 (0.0-0.4) X10*3/uL Baso # (Auto) 0.0 (0.0-0.2) X10*3/uL Abs Immat Gran (auto) 0.03 (0.00-0.03) X10*3/uL Absolute Neuts (auto) 6.0 (2.0-8.3) x10*3/uL Absolute Nucleated RBC 0.000 (0.0-0.012) X10*3/uL Nucleated RBC % (auto) 0.0 (0.0-0.2) /100WBC Sodium 140 (135-145) mmol/L Potassium 3.4 (3.3-5.1) mmol/L Chloride 109 H (96-108) mmol/L Carbon Dioxide 20 L (22-29) mmol/L Anion Gap 14 (12-20) BUN 12 (9-16) mg/dL Creatinine 0.86 (0.5-1.4) mg/dL Estim Creat Clear Calc 74.5 Estimated GFR > 60 Random Glucose 101 (60-115) mg/dL Calcium 9.4 (8.4-10.2) mg/dL Total Bilirubin 1.0 (0.0-1.0) mg/dL AST 18 (5-31) U/L ALT 16 (0-31) U/L Alkaline Phosphatase 49 (39-117) U/L Total Protein 7.4 (6.5-8.0) g/dL Albumin 4.4 (3.5-5.0) g/dL Urine Color Urine Appearance Urine pH (5.0-9.0) Ur Specific [place] (1.005-1.025) Urine Protein (Neg-Trace) mg/dL Urine Glucose (UA) (Negative) mg/dL Urine Ketones (Negative) mg/dL Urine Blood (Negative) Urine Nitrite (Negative) Ur Leukocyte Esterase (Negative) Urine RBC (0-2) /HPF Urine WBC (0-5) /HPF Ur Squamous Epith Cells (0-2) /HPF Urine Bacteria (None Seen) Hyaline Casts (0-2) /LPF Urine Test (NEGATIVE) Urine Opiates Screen (Not Detect) Urine Fentanyl Screen (Not Detect) Ur Barbiturates Screen (Not Detect) Ur Phencyclidine Scrn (Not Detect) Ur Amphetamines Screen (Not Detect) U Benzodiazepines Scrn (Not Detect) Urine Cocaine Screen (Not Detect) U Marijuana (THC) Screen (Not Detect) Ethyl Alcohol < 10 mg/dL Independent Historian Clinical information obtained from an independent historian. History obtained from or confirmed by: Parent mom at the bedside Discharge Plan Discharge Clinical Impression: Acute anxiety Patient Disposition: Home, Self-Care Instructions: Anxiety (ED) Additional Instructions: Follow-up with plans for partial hospitalization Follow-up with outpatient providers return for safety concerns Prescriptions: New hydroxyzine pamoate [Vistaril] 50 mg capsule 50 mg PO Q8H PRN (Reason: anxiety) Qty: 20 0RF No Action omeprazole 20 mg capsule,delayed release(DR/EC) 20 mg PO DAILY Qty: 21 0RF Rx Instructions: take daily for 2 weeks, every other day for the last week azithromycin 250 mg tablet 250 mg PO DAILY 4 Days Qty: 4 0RF Rx Instructions: start on day 2 of therapy benzonatate 100 mg capsule 100 mg PO TID PRN (Reason: cough) Qty: 14 0RF Referrals: Vanessa Gonzalez MD [Primary Care Provider] - 10 days Interventions: Roland-Suicide Risk Severity Scale Last Done: 04/14/23 13:57 ED Discharge Assessment Last Done: 04/14/23 18:42 Discharge Date/Time: 04/14/23 18:48
[2023-04-14 15:13] LABS: MANUAL DIFF FLAG NO
[2023-04-14 15:14] LABS: Basophils Percent Auto 0.4 % (0-2); Eosinophils Absolute Auto 0.1 X10*3/uL (0.0-0.4); Eosinophils Percent Auto 0.7 % (0-4); Hematocrit 41.4 % (37.0-47.0); Hemoglobin 14.2 g/dl (12.0-16.0); Imm Gran Abs Auto 0.03 X10*3/uL (0.00-0.03); Imm Gran Pct Auto 0.4 % (0.0-0.4); Lymphocytes Absolute Auto 1.8 X10*3/uL (1.2-4.9); Lymphocytes Percent Auto 21.4 % (20-40); Mean Corpuscular HGB Conc 34.3 g/dl (31.0-35.0); Mean Corpuscular Hemoglobin 29.8 pg (27.0-33.0); Mean Corpuscular Volume 86.8 fL (80.0-98.0); Mean Platelet Volume 9.7 fL (9.4-12.3); Monocytes Absolute Auto 0.4 X10*3/uL (0.1-1.2); Monocytes Percent Auto 5.1 % (2-11); Platelet Count 308 X10*3/uL (160-400); Red Blood Count 4.77 X10*6/uL (4.20-5.50); Red Cell Distribution Width 12.3 % (11.0-16.0); White Blood Count 8.4 X10*3/uL (4.8-10.8)
[2023-04-14 15:16] LABS: Appearance Urine Turbid; Color Urine Dark Yellow; Glucose Urine UA Negative (Negative); Leukocyte Esterase Urine Trace (Negative); Nitrite Urine Negative (Negative); Specific Gravity - Urine >= 1.030 (1.005-1.025); UMIC TRIGGER UACC YES; Urine Blood Negative (Negative); Urine Ketones >=160 mg/dL (Negative); Urine Protein 30 (1+) mg/dL (Neg-Trace)
[2023-04-14 15:17] LABS: UPreg QC Valid YES; Urine Pregnancy NEGATIVE (NEGATIVE)
[2023-04-14 15:30] LABS: Bacteria Urine 1+ (None Seen); Hyaline Casts Urine 0-2 /LPF (0-2); Squamous Epithelial Cell Urine >20 /HPF (0-2); UACC Culture Trigger YES
[2023-04-14 15:46] LABS: Alanine Aminotransferase 16 U/L (0-31); Albumin Level 4.4 g/dL (3.5-5.0); Alkaline Phosphatase 49 U/L (39-117); Anion Gap 14 (12-20); Aspartate Amino Transferase 18 U/L (5-31); Blood Urea Nitrogen 12 mg/dL (9-16); Calcium 9.4 mg/dL (8.4-10.2); Carbon Dioxide 20 mmol/L (22-29); Chloride 109 mmol/L (96-108); Creatinine Clr Calc Pharmacy 74.5; Estimated Glomerular Filt Rate > 60; Ethanol < 10 mg/dL; Glucose Random 101 mg/dL (60-115); Potassium 3.4 mmol/L (3.3-5.1); Sodium 140 mmol/L (135-145); Total Protein 7.4 g/dL (6.5-8.0)
--- NOTE | 2023-04-14 16:16 | PC.NURSE ---
pt tearful with anxiety during assessment, visited with mom, pt resting now, labs drawn. will ctm
[2023-04-14] MEDS: LORazepam 1 MG TABLET PO (16:36)
[2023-04-14 17:30] LABS: Amphetamine Screen Urine Not Detected (Not Detect); Barbiturates, Urine Not Detected (Not Detect); Benzodiazepines Screen Urine Not Detected (Not Detect); Cannabinoid Screen Urine Not Detected (Not Detect); Cocaine Screen Urine Not Detected (Not Detect); Fentanyl, urine Not Detected (Not Detect); Opiate Screen Urine Not Detected (Not Detect); Phencyclidine Screen Urine Not Detected (Not Detect)
--- NOTE | 2023-04-16 08:43 | MHC.CARE ---
T/w [place] out [place] [facility] [place] and fax it along with the Care Assessment to Marilou Booth at [phone]. Confirmation received at 8:42am that fax went through. T/w spoke with pt to let her know the referral has been made.
== END 2023-04-14 18:48 | disposition home or self-care (01) ==
PROVIDERS: Nurse Practitioner Family; Emergency Provider Emergency Medicine; PCP Internal Medicine
DX: F41.9 Anxiety disorder, unspecified (principal); F32.A Depression, unspecified; F43.10 Post-traumatic stress disorder, unspecified; Z79.899 Other long term (current) drug therapy
CPT/HCPCS: 36415; 80053; 80307; 81001; 81025; 85025; 87086; 99284; S9485

== ENCOUNTER → 2023-05-07 12:07 | Outpatient (BNV) | payer OTHER, SELFPAY | PROVIDERS: Visit Provider Psychiatry & Neurology Psychiatry | DX: F32.2 Major depressive disorder, single episode, severe without psychotic features (principal); F41.1 Generalized anxiety disorder | CPT/HCPCS: 99204 ==

== ENCOUNTER 2023-05-16 10:30 | Outpatient (RCR) | payer OTHER, SELFPAY ==
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
[2023-05-08 12:07] VITALS: BP 90/58; PULSE 76; TEMP 36.2
[2023-05-08 12:18] VITALS: BMI 28.9
--- NOTE | 2023-05-08 12:51 | PC.ADMIT ---
Patient is a 38 year old female who was referred to [facility] by the Care Team who evaluated patient in the ER when she self presented for severe anxiety and depression. Patient reports stopping her medications as she thought she did not need them anymore which increased her above sxs. Patient reports she had a panic attack at the end of March and is afraid she will have another one. She stated she worries about everything and wakes up every morning struggling with anxiety which causes her to feel depressed. She reports a 14 lb weight loss with in a few months d/t feeling anxious as she is unable to eat when she is feeling anxious. Patient is alert and oriented x4. She presents with depressed mood and anxious affect. She denied SI. I gave patient a copy of her safety plan and I reviewed the plan with her. Medications reconciled with patient and patient's pharmacy. She reports taking medications as prescribed.
--- NOTE | 2023-05-10 17:09 | HO.PHP ---
Clients case was reviewed and opened today in treatment team.
--- NOTE | 2023-05-14 12:46 | PC.NURSE ---
I spoke to Allegra this morning. She will not be coming to the program today. She stated she is continuing not to feel well c/o sore throat. PHP staff is aware.
--- NOTE | 2023-05-15 09:40 | PC.NURSE ---
Allegra called Marilou and stated she continues not to feel well physically and will not be in the program today. [facility] staff is aware.
--- NOTE | 2023-05-15 15:28 | HO.PHP ---
I called the client to check in . She states that she is feeling better and her COVID test came back negative. She says that she will be in tomorrow.
--- NOTE | 2023-05-17 16:18 | HO.PHP ---
[facility] staff member contacted Allegra to administratively discharge due to Allegra falling ill. [facility] staff informed Allegra that we would like for her to get everything that she can from the program and at this point in time, she has missed more scheduled days then attended. Allegra was receptive. [facility] staff collected information regarding safety and when her next OP therapy and med provider appointments are. [facility] staff encouraged Allegra when she is feeling at full health again, to give Marilou a call to reschedule the intake. Allegra was receptive.
== END 2023-05-16 23:59 | disposition home or self-care (01) ==
LOC: HO.PHPA 10:30
PROVIDERS: Visit Provider Psychiatry & Neurology Psychiatry
DX: F32.2 Major depressive disorder, single episode, severe without psychotic features (principal); F41.1 Generalized anxiety disorder; Z79.899 Other long term (current) drug therapy
CPT/HCPCS: 90791; 90853

== ENCOUNTER 2023-06-19 07:27 | Outpatient (AMB) | payer OTHER, MEDICAID, SELFPAY ==
--- NOTE | 2023-06-19 07:31 | A.OFFPC_ITS ---
Vital Signs 06/19/23 07:32 Height 5 ft Weight 152 lb BMI 29.7 BP 98/62 Blood Pressure Location Lt brachial Position Sitting Pulse 91 Pulse Source Auscultation Intake Visit Reasons: New patient-requesting physical Intake Note: new patient, physical request Security Strategist Required: No Accompanied by: Self / Same As Patient Allergies oxycodone [From Percocet] Allergy (Mild, Verified 06/19/23 07:44) ITCH/HIVES BLUE CHEESE Allergy (Unknown, Uncoded 06/19/23 07:44) HIVES Percocet Allergy (Unknown, Uncoded 06/19/23 07:44) hives Medication List - Last Reconciled 06/19/23 by Vanessa Cummins MD buspirone 30 mg PO BID clonidine HCl Take 1/2 tab in the am and 1 tab in the evening. fluoxetine (Prozac) 40 mg PO DAILY hydroxyzine pamoate 25 - 50 mg PO BID PRN lamotrigine 100 mg PO DAILY Tobacco use date assessed: 06/19/23 Dental Screening Dental Screen Date: 06/19/23 Did you have a dental visit in the last 12 months?: Yes Did you have a dental problem in the last 6 months where you did not have access to dental care?: No Was dental information given to patient?: Patient has dentist HPI HPI Comments History of Present Illness Details This is a 38-year-old female with severe major depression that comes for her physical exam. Depression has been stable with medications and is follow by Psychiatry. Has never had a mammogram. Last Pap smear was about 2-3 years ago and was normal as per patient. She has mitral and aortic insufficiency and I will order echocardiogram for it. She used to be follow by cardiology in [place]. No chest pain or shortness of breath. Compliant with medications. [facility] Medical History (Updated 06/19/23 @ 08:00 by Vanessa Cummins MD) Scoliosis Mitral and aortic insufficiency Asthma, exercise induced GERD (gastroesophageal reflux disease) History of behavioral and mental health problems Encounter for behavioral health screening Surgical History History of surgery on lower extremity H/O section Family History Mother Mental health disorder Father History of quadruple bypass Social History Household Members: Significant Other, Family and Children Housing: House Alcohol intake: never Patient Tobacco Use Status: Never used Tobacco e-Cigarette/Vaping Use: Never Used Second Hand Smoke Exposure: No service: No Current occupational status: disabled Cognitive needs: No Hearing needs: Yes Vision needs: Yes Questionnaire PHQ-9 Over the last 2 weeks, how often have you been bothered by any of the following problems? 1. Little interest or pleasure in doing things: several days 2. Feeling down, depressed, or hopeless: several days 3. Trouble falling or staying asleep, or sleeping too much: several days 4. Feeling tired or having little energy: several days 5. Poor appetite or overeating: several days 6. Feeling bad about yourself - or that you are a failure or have let yourself or your family down: several days 7. Trouble concentrating on things, such as reading the newspaper or watching television: more than half the days 8. Moving or speaking so slowly that other people could have noticed. Or the opposite - being so fidgety or restless that you have been moving around a lot more than usual: several days 9. Thoughts that you would be better off or of hurting yourself in some way: not at all Total score: 9 Depression Screening Interpretation: Positive Depression Screening Follow-up: Existing condition, In treatment and Community Mental Health Worker F/U Depression Screening Done: Yes 22559 - PHQ-9 Billing: Yes Source: Developed by Drs. Miller Medrano, Aisha Oswald, Maximino La and colleagues, with an educational nelson from [employer]. Thrive Questionnaire Date Thrive assessed: 06/19/23 I am a: Patient What is your living situation today?: I have a steady place to live Within the past 12 months, did the food you bought not last and you didn't have the money to get more?: Never true Within the past 12 months, did you worry whether your food would run out before you got money to buy more?: Never true Do you have trouble paying for medicines?: No Do you have trouble getting transportation to medical appointments?: No Do you have trouble paying your heating and electricity bill?: No Do you have trouble taking care of your child, family member or friend?: No Do you have trouble with day-to-day activities such as bathing, preparing meals, shopping, managing finances, etc.?: No Are you currently unemployed and looking for a job?: No Are you interested in more education?: No Please select the resources that you would like help with: None Currently or been in a relationship where the following occur: no concerns reported AUDIT C Alcohol Use Questionnaire (AUDIT-C) 1. How often do you have a drink containing alcohol?: Never Total Score: 0 ERIC-7 AMB Questionnaire ERIC-7 Date ERIC - 7 assessed: 06/19/23 Feeling nervous, anxious, or on edge: 2 = More than half the days Not being able to stop or control worryin = Several days Worrying too much about different things: 1 = Several days Trouble relaxin = Several days Being so restless that it is hard to sit still: 0 = Not at all Becoming easily annoyed or irritable: 1 = Several days Feeling afraid as if something awful might happen: 2 = More than half the days Total ERIC-7 score (0-4 normal; 5-9 mild; 10-14 moderate; 15-21 severe): 8 Source: Developed by Drs. Miller Medrano, Aisha Oswald, Maximino La and colleagues, with an educational nelson from [employer]. ERIC-7 Assessment Billing ERIC-7 Assessment Tool: ERIC-7 Assessment 59902 Review of Systems Const All systems reviewed & are unremarkable except as noted in HPI and below Eyes Reports no additional complaints, Denies change in vision and Denies other visual disturbances Card Denies chest pain at rest, Denies chest pain with activity, Denies edema, Denies irregular heart rhythm, Denies claudication, Denies dyspnea, Denies dyspnea on exertion, Denies orthopnea, Denies paroxysmal nocturnal dyspnea and Denies slow heart rate Resp Denies cough, Denies dyspnea and Denies dyspnea on exertion GI Denies abdominal pain, Denies change in bowel habits, Denies excessive flatus, Denies nausea and Denies vomiting Denies urinary incontinence, Denies urinary hesitancy and Denies urinary urgency Musc Denies abnormal gait, Denies atrophy, Denies deformity and Denies limited range of motion Skin/Breast Denies bleeding lesions, Denies changing lesions and Denies rash Neuro Denies abnormal gait and Denies lack of coordination Physical exam (Primary Care) Vital Signs: Last Vital Signs BP 98/62 06/19/23 07:32 BMI result Body Mass Index 29.7 Tobacco/Smoking Status: Tobacco use Status Tobacco use date assessed 06/19/23 06/19/23 07:41 Patient Tobacco Use Status Never used Tobacco 06/19/23 07:41 e-Cigarette/Vaping Use Never Used 06/19/23 07:41 PHQ-9: PHQ-9 Score PHQ-9: Total score 9 06/19/23 07:41 Depression Screening Interpretation: Positive Depression Screening Follow-up: Existing condition, In treatment and Community Mental Health Worker F/U Thrive Assessment: Date of Thrive Assessment Date Thrive assessed 06/19/23 06/19/23 07:41 Currently or been in a relationship where the following occur: no concerns reported Const Orientation/consciousness: patient oriented x3 HENMT Head: Yes normal to inspection, Yes normocephalic and Yes atraumatic Ears: external ears normal Eyes General: appearance normal, both eyes and all related structures Eyelids: Yes eyelids normal Conjunctivae: conjunctivae normal Neck Neck: Yes normal visual inspection and Yes supple Resp Effort & Inspection: normal respiratory effort Auscultation: clear to auscultation bilaterally Cardio Jugular venous distension: no JVD Rate: regular rate Rhythm: regular rhythm Heart sounds: S1 normal heart sound present and S2 normal heart sound present GI Inspection: Yes normal to inspection Palpation (GI): Soft to palpation and nontender Auscultation: normal bowel sounds Skin General skin exam: no rashes or lesions noted Neuro General: patient oriented x3 and no focal motor deficits Extrem General: Yes full ROM Psych Appearance: grossly normal Assessment and Plan Assessment & Plan (1) Physical exam: Code(s): Z00.00 - Encounter for general adult medical examination without abnormal findings Plan: Repeat in a year. (2) Major depress dis, severe: Code(s): F32.2 - Major depressive disorder, single episode, severe without psychotic features Plan: Continue fluoxetine. Follow-up with psychiatry. Orders: Orders CA echo transthoracic complete Today I08.0 - Rheumatic disorders of both mitral and aortic valves MM screening mammo BI Today Z12.31 - Encounter for screening mammogram for malignant neoplasm of breast Lipid Panel Today Z00.00 - Encounter for general adult medical examination without abnormal findings Comprehensive [place]. Panel Fast Today Z00.00 - Encounter for general adult medical examination without abnormal findings Coding Level of Care Code New Pt Prev Care 40-64y(45795) Diagnoses Physical exam Z00.00 Major depress dis, severe F32.2 Additional Codes ERIC-7 Assessment Billing - ERIC-7 Assessment Tool: ERIC-7 Assessment 37103 ([id number]) Time Spent (min) 31
[2023-06-19 07:32] VITALS: BP 98/62; PULSE 91; BMI 29.7
== END 2023-06-19 07:58 | disposition home or self-care (01) ==
PROVIDERS: PCP Nurse Practitioner Family; Visit Provider Internal Medicine
DX: Z00.00 Encounter for general adult medical examination without abnormal findings (principal); F32.2 Major depressive disorder, single episode, severe without psychotic features
CPT/HCPCS: 96127; 99386

== ENCOUNTER 2023-06-19 08:12 | Outpatient (REF) | payer OTHER, MEDICAID, SELFPAY ==
[2023-06-19 08:58] LABS: Alanine Aminotransferase 19 U/L (0-31); Albumin Level 4.1 g/dL (3.5-5.0); Alkaline Phosphatase 67 U/L (39-117); Anion Gap 15 (12-20); Aspartate Amino Transferase 17 U/L (5-31); Bilirubin Total 0.4 mg/dL (0.0-1.0); Blood Urea Nitrogen 18 mg/dL (9-16); Calcium 9.2 mg/dL (8.4-10.2); Carbon Dioxide 22 mmol/L (22-29); Chloride 107 mmol/L (96-108); Cholesterol 192 mg/dL (<200); Estimated Glomerular Filt Rate > 60; Glucose Fasting 81 mg/dL (60-99); HDL Cholesterol 60 mg/dL (>40); LDL Cholesterol Calculated 117 mg/dL (<100); Potassium 3.6 mmol/L (3.3-5.1); Sodium 140 mmol/L (135-145); Total Protein 6.9 g/dL (6.5-8.0); Triglycerides 76 mg/dL (<150)
== END 2023-06-19 08:13 | disposition home or self-care (01) ==
LOC: HO.LAB 08:12
PROVIDERS: PCP Internal Medicine; Visit Provider Internal Medicine
DX: Z00.00 Encounter for general adult medical examination without abnormal findings (principal)
CPT/HCPCS: 36415; 80053; 80061

== ENCOUNTER 2023-07-05 07:48 | Emergency (ER) | payer OTHER, MEDICAID, SELFPAY ==
--- NOTE | 2023-07-05 07:54 | ED_ITS ---
HPI - URI/Sore Throat General Chief Complaint: Nausea/Vomiting/Diarrhea Stated Complaint: Flu Like Symptoms Time Seen by Provider: 07/05/23 07:51 Source: patient and old records reviewed Mode of arrival: ambulatory Limitations: no limitations History of Present Illness HPI Narrative: 38 yo female with PMH of valve insufficiency, PTSD, depression, anxiety, asthma woke up at 1am with abdominal upset and cramping then diffuse n/v and diarrhea nonbloody. She cannot keep anything down. No travel, no antibiotics. She ate leftover [place] food rice for dinner last night no one else in the family did. MD elicited complaint: other (n/v/d abdominal cramps) Onset (ago): hour(s) (7) Consistency: intermittent Severity: moderate Exacerbating factors: other (eating) Relieving factors: nothing Context: other (food exposure) Associated symptoms: abdominal pain, nausea, vomiting and diarrhea Treatments prior to arrival: none Related Data Home Medications Medication Instructions Recorded Confirmed buspirone 30 mg tablet 30 mg PO BID 05/08/23 06/19/23 clonidine HCl 0.1 mg tablet See Rx Instructions .Route .COMPLEX 05/08/23 06/19/23 fluoxetine 40 mg capsule (Prozac) 40 mg PO DAILY 05/08/23 06/19/23 hydroxyzine pamoate 25 mg capsule 25 - 50 mg PO BID PRN Anxiety 05/08/23 06/19/23 lamotrigine 25 mg tablet 100 mg PO DAILY 06/19/23 06/19/23 Previous Rx's Medication Instructions Recorded ondansetron 4 mg disintegrating 4 mg PO Q8H PRN nausea and 07/05/23 tablet vomiting #20 tabs Allergies Allergy/AdvReac Type Severity Reaction Status Date / Time oxycodone [From Percocet] Allergy Mild ITCH/HIVES Verified 06/19/23 07:44 BLUE CHEESE Allergy Unknown HIVES Uncoded 06/19/23 07:44 Percocet Allergy Unknown hives Uncoded 06/19/23 07:44 Review of Systems 2 Review of Systems: Constitutional : No Weight loss, No Fever, No Chills ENT/Mouth : No sore throat, No Rhinorrhea Eyes: No Swelling, No Redness Cardiovascular : No Chest Pain, No SOB, NoEdema Respiratory : No Cough, No Sputum, No Wheezing Gastrointestinal : Positive Nausea, Positive Vomiting, positive Diarrhea, positive abdominal Pain, No Hematochezia, No Melena Genitourinary : No Dysuria, No Urinary Frequency, No Hematuria, No Urgency Musculoskeletal : No joint pain, No Myalgias, No Joint Swelling Skin : No Skin Lesions, No rash Neuro : No Weakness, No Numbness, No Dizziness, No Headache Psych : No Anxiety/Panic, No Depression Heme/Lymph: No Bruising, No Lymphadenopathy Endocrine : No Polyuria, No Polydipsia All other systems reviewed and are negative. [facility] Past Medical History Attestation statement: The following information was validated with the patient. Source: old records reviewed Medical History Scoliosis Mitral and aortic insufficiency Asthma, exercise induced GERD (gastroesophageal reflux disease) History of behavioral and mental health problems Encounter for behavioral health screening Surgical History History of surgery on lower extremity H/O section Family History Family History Mother Mental health disorder Father History of quadruple bypass Social History Social History Household Members: Significant Other, Family and Children Housing: House Unable to assess alcohol history related to: Unknown Alcohol intake: never Patient Tobacco Use Status: Never used Tobacco Smoked in Last 30 Days: No e-Cigarette/Vaping Use: Never Used Second Hand Smoke Exposure: No Use of substances other than those prescribed or required for medical reasons: Unknown Advance Directives: No Advance Directives Information Provided: Yes service: No Current occupational status: disabled Cognitive needs: No Hearing needs: Yes Vision needs: Yes Physical Exam 2 Vital Signs: Vital Signs: Last Vital Signs Temp 98.2 F 07/05/23 07:59 Pulse 94 07/05/23 07:59 Resp 16 07/05/23 07:59 BP 110/88 07/05/23 07:59 Pulse Ox 95 07/05/23 07:59 O2 Del Method Room Air 07/05/23 07:59 BMI result Body Mass Index 24.6 Appearance: Alert. Oriented X3. No acute distress. Eyes: Pupils equal, round and reactive to light. ENT: Pharynx mildly dry MM Neck: Normal inspection. Neck supple. CVS: Normal heart rate and rhythm. Pulses normal. Respiratory: No respiratory distress. Breath sounds normal. Abdomen: Soft and nontender. Skin: Skin warm and dry. Normal skin color. Normal skin turgor. Extremities: No lower extremity edema. No calf ttp Neuro: Oriented X 3. No motor deficit. No sensory deficit. Course Course Course Narrative: still nauseated at this time after kary roosevelt - IV droperidol ordered, WBC count due to vomiting and not infection or severe sepsis Medications Administered Discontinued Medications Generic Name Dose Route Start Last Admin Trade Name Freq PRN Reason Stop Dose Admin Droperidol 1.25 mg 07/05/23 10:24 07/05/23 10:37 Droperidol 5 Mg/2 Ml Vial IVPUSH 07/05/23 10:25 1.25 mg ONCE ONE Administration Famotidine 20 mg 07/05/23 07:58 07/05/23 08:23 Famotidine/Pf 20 Mg/2 Ml Vial IVPUSH 07/05/23 07:59 20 mg ONCE ONE Administration Sodium Chloride 1,000 mls @ 999 mls/hr 07/05/23 08:00 07/05/23 10:13 Ns IVCONT 07/05/23 10:00 Infused .Q1H1M CHOLO Infusion Ketorolac Tromethamine 15 mg 07/05/23 07:58 07/05/23 08:18 Ketorolac Tromethamine 15 Mg/Ml Vial IVPUSH 07/05/23 07:59 15 mg ONCE ONE Administration Ondansetron HCl 4 mg 07/05/23 07:58 07/05/23 08:18 Ondansetron Hcl 4 Mg/2 Ml Vial IVPUSH 07/05/23 07:59 4 mg ONCE ONE Administration Medical Decision Making Medical Decision Making [facility] Narrative: 38 yo female with PMH of valve insufficiency, PTSD, depression, anxiety, asthma who now has mild abd cramps but n/v/d non bloody without travel or abx likely in setting of eating leftover [place] food. At this time will need labs, IVF and supportive medications. Has no localized ttp to suggest acute intraabdominal pathology likely GB or appendicitis. Will monitor and reassess. Differential Diagnosis Differential Diagnoses: The differential diagnosis associated with the presentation includes enteritis, viral syndrome, food toxicity Admission/Observation Consideration of admission/observation: Escalation of care including admission/observation considered tolerating PO feels much better and wants to go home Lab Data MDM Lab Attestation statement: I reviewed the patient's lab results. 07/05/23 08:17 07/05/23 08:17 Labs: Lab Results 07/05/23 Range/Units 08:17 WBC 16.4 H (4.8-10.8) X10*3/uL RBC 5.14 (4.20-5.50) X10*6/uL Hgb 15.6 (12.0-16.0) g/dl Hct 44.8 (37.0-47.0) % MCV 87.2 (80.0-98.0) fL MCH 30.4 (27.0-33.0) pg MCHC 34.8 (31.0-35.0) g/dl RDW 12.4 (11.0-16.0) % Plt Count 322 (160-400) X10*3/uL MPV 9.5 (9.4-12.3) fL Immature Gran % (Auto) 0.4 (0.0-0.4) % Neut % (Auto) 93.1 H (45-73) % Lymph % (Auto) 3.3 L (20-40) % Isabella % (Auto) 2.9 (2-11) % Eos % (Auto) 0.1 (0-4) % Baso % (Auto) 0.2 (0-2) % Lymph # (Auto) 0.5 L (1.2-4.9) X10*3/uL Isabella # (Auto) 0.5 (0.1-1.2) X10*3/uL Eos # (Auto) 0.0 (0.0-0.4) X10*3/uL Baso # (Auto) 0.0 (0.0-0.2) X10*3/uL Abs Immat Gran (auto) 0.07 H (0.00-0.03) X10*3/uL Absolute Neuts (auto) 15.3 H (2.0-8.3) x10*3/uL Absolute Nucleated RBC 0.000 (0.0-0.012) X10*3/uL Nucleated RBC % (auto) 0.0 (0.0-0.2) /100WBC Smear Tech's Comments VERIFIED Sodium 137 (135-145) mmol/L Potassium 4.7 D (3.3-5.1) mmol/L Chloride 109 H (96-108) mmol/L Carbon Dioxide 15 L (22-29) mmol/L Anion Gap 18 (12-20) BUN 18 H (9-16) mg/dL Creatinine 1.10 (0.5-1.4) mg/dL Estim Creat Clear Calc 60.8 Estimated GFR 55 Random Glucose 128 H (60-115) mg/dL Calcium 9.2 (8.4-10.2) mg/dL Magnesium 2.0 (1.6-2.6) mg/dL Total Bilirubin 1.1 H (0.0-1.0) mg/dL Direct Bilirubin 0.3 (0.0-0.5) mg/dL AST 28 (5-31) U/L ALT 16 (0-31) U/L Alkaline Phosphatase 75 (39-117) U/L Total Protein 8.2 H (6.5-8.0) g/dL Albumin 4.5 (3.5-5.0) g/dL Lipase 24 (8-78) U/L Beta HCG, Quant < 2 mIU/mL COVID-19 (ISAIAS) Negative (Negative) COVID-19 Clin Com See Note Influenza Type A (MIRA) Negative (Negative) Influenza Type B (MIRA) Negative (Negative) Influenza A & B Note See Note Independent Historian Clinical information obtained from an independent historian. History obtained from or confirmed by: Spouse External Record Review External record reviewed: Inpatient record Prescription Management I considered prescription management with: Other Discharge Plan Discharge Clinical Impression: Toxic effect of food contaminant, Acute dehydration Patient Disposition: Home, Self-Care Instructions: Dehydration (ED), Acute Nausea and Vomiting (ED), Acute Diarrhea (ED) Additional Instructions: bland diet advance over 48 hours return for fevers, vomiting, worsening pain, bloody stools inability to eat or drink or any other concerns. stay hydrated. Prescriptions: New ondansetron 4 mg tablet,disintegrating 4 mg PO Q8H PRN (Reason: nausea and vomiting) Qty: 20 0RF No Action fluoxetine [Prozac] 40 mg capsule 40 mg PO DAILY clonidine HCl 0.1 mg tablet See Rx Instructions .ROUTE .COMPLEX Rx Instructions: Take 1/2 tab in the am and 1 tab in the evening. buspirone 30 mg tablet 30 mg PO BID hydroxyzine pamoate 25 mg capsule 25 - 50 mg PO BID PRN (Reason: Anxiety) lamotrigine 25 mg tablet 100 mg PO DAILY
[2023-07-05 07:59] VITALS: BP 110/88; PULSE 94; RESP 16; TEMP 36.8; O2SAT 95; BMI 24.6
[2023-07-05] MEDS: Ketorolac Tromethamine 15 MG/ML VIAL IVPUSH (08:18)
[2023-07-05] MEDS: 0.9 % Sodium Chloride 1,000 ML 999 ML IVCONT ×2 (08:18→09:01)
[2023-07-05] MEDS: ondansetron HCL 4 MG/2 ML VIAL IVPUSH (08:18)
[2023-07-05 08:22] LABS: Basophils Percent Auto 0.2 % (0-2); Eosinophils Percent Auto 0.1 % (0-4); Hematocrit 44.8 % (37.0-47.0); Hemoglobin 15.6 g/dl (12.0-16.0); Imm Gran Abs Auto 0.07 X10*3/uL (0.00-0.03); Imm Gran Pct Auto 0.4 % (0.0-0.4); Lymphocytes Absolute Auto 0.5 X10*3/uL (1.2-4.9); Lymphocytes Percent Auto 3.3 % (20-40); MANUAL DIFF FLAG SCAN; Mean Corpuscular HGB Conc 34.8 g/dl (31.0-35.0); Mean Corpuscular Hemoglobin 30.4 pg (27.0-33.0); Mean Corpuscular Volume 87.2 fL (80.0-98.0); Mean Platelet Volume 9.5 fL (9.4-12.3); Monocytes Absolute Auto 0.5 X10*3/uL (0.1-1.2); Monocytes Percent Auto 2.9 % (2-11); Neutrophils Absolute Auto 15.3 x10*3/uL (2.0-8.3); Neutrophils Percent Auto 93.1 % (45-73); Platelet Count 322 X10*3/uL (160-400); Red Blood Count 5.14 X10*6/uL (4.20-5.50); Red Cell Distribution Width 12.4 % (11.0-16.0); SCAN SMEAR FLAG 1; White Blood Count 16.4 X10*3/uL (4.8-10.8)
[2023-07-05] MEDS: Famotidine/PF 20 MG/2 ML VIAL IVPUSH (08:23)
--- NOTE | 2023-07-05 08:25 | PC.NURSE ---
IV placed, labs drawn and sent.
[2023-07-05 08:35] LABS: COVID-19 Test Negative (Negative); IDNOW Serial# 08D9AD1C
[2023-07-05 08:45] LABS: SLIDE REVIEW VERIFIED
[2023-07-05 08:51] LABS: IDNOW Serial# 08D9AD1C; Influenza A Negative (Negative); Influenza B2 Negative (Negative)
[2023-07-05 08:55] LABS: Alanine Aminotransferase 16 U/L (0-31); Albumin Level 4.5 g/dL (3.5-5.0); Anion Gap 18 (12-20); Aspartate Amino Transferase 28 U/L (5-31); Bilirubin Direct 0.3 mg/dL (0.0-0.5); Bilirubin Total 1.1 mg/dL (0.0-1.0); Blood Urea Nitrogen 18 mg/dL (9-16); Calcium 9.2 mg/dL (8.4-10.2); Carbon Dioxide 15 mmol/L (22-29); Chloride 109 mmol/L (96-108); Creatinine Clr Calc Pharmacy 60.8; Estimated Glomerular Filt Rate 55; Glucose Random 128 mg/dL (60-115); Potassium 4.7 mmol/L (3.3-5.1); Sodium 137 mmol/L (135-145); Total Protein 8.2 g/dL (6.5-8.0)
[2023-07-05 08:56] LABS: Alkaline Phosphatase 75 U/L (39-117); HCG Quantitative < 2 mIU/mL; Lipase 24 U/L (8-78)
[2023-07-05] MEDS: droPERidol 5 MG/2 ML VIAL 1.25 MG IVPUSH (10:37)
--- NOTE | 2023-07-05 10:44 | PC.NURSE ---
pt reporting continued nausea and states I still don't feel good medicated per mar for nausea, effectiveness pending
--- NOTE | 2023-07-05 11:37 | PC.NURSE ---
po trial successful - pt drank gingerale, no nausea, no vomiting reports feeling better.
== END 2023-07-05 12:38 | disposition home or self-care (01) ==
PROVIDERS: Emergency Provider Emergency Medicine; PCP Internal Medicine
DX: A05.9 Bacterial foodborne intoxication, unspecified (principal); R11.2 Nausea with vomiting, unspecified; E86.0 Dehydration; R10.9 Unspecified abdominal pain; R19.7 Diarrhea, unspecified; Z11.52 Encounter for screening for COVID-19; Z20.822 Contact with and (suspected) exposure to COVID-19; Z79.899 Other long term (current) drug therapy
CPT/HCPCS: 36415; 80048; 80076; 83690; 83735; 84702; 85025; 87502; 87635; 96361; 96374; 96375; 99285; J1790; J1885; J2405

== ENCOUNTER → 2023-07-11 10:30 | Outpatient (BNV) | payer OTHER, MEDICAID, SELFPAY | PROVIDERS: Visit Provider Psychiatry & Neurology Psychiatry | DX: F41.1 Generalized anxiety disorder (principal); F32.2 Major depressive disorder, single episode, severe without psychotic features; F43.10 Post-traumatic stress disorder, unspecified; H91.90 Unspecified hearing loss, unspecified ear | CPT/HCPCS: 90792; 99213 ==

== ENCOUNTER → 2023-07-18 09:26 | Outpatient (REF) | payer OTHER, MEDICAID, SELFPAY ==
--- NOTE | 2023-07-18 10:26 | CA_ITS ---
Transthoracic Echocardiogram Patient (Last, First, Middle): Allegra Franz a Gender: Female Date of : 1985 Age: 38 Procedure Date: 07/18/2023 Procedure Type: Transthoracic Echocardiogram Location: OP Height: 152.4 cm Weight: 68.95 kg BSA: 1.66 m2 Heart Rate: bpm BP: 116 / 70 mmHg Animal Rescuer: ADRIA Referring MD: Vanessa Cummins MD Student Truck Driver: Dontrell Aguero MD Symptoms: I08.0 - Rheumatic disorders of both mitral and aortic valves Study Quality: Adequate ECG Rhythm: Sinus Conclusions: - Normal study Findings Left Ventricle Normal left ventricular size, thickness, and systolic function. The visually estimated ejection fraction is between 55-60%. Spectral Doppler is indicative of a normal filling pattern. Peak GLS is -18.2%, within normal limits. Right Ventricle Normal right ventricular cavity size and systolic function. Atria Both atria are normal in size. There is no evidence of interatrial shunt. Aortic Valve The aortic valve structure and function is likely normal. There is no aortic valve stenosis. There is no aortic valve regurgitation. Mitral Valve Normal mitral valve structure and function. There is trace mitral valve regurgitation. There is no mitral valve stenosis. Pulmonic Valve The pulmonic valve is likely normal. There is trace pulmonic valve regurgitation. Tricuspid Valve Normal tricuspid valve structure. There is trace tricuspid valve regurgitation. The right ventricular systolic pressure is normal. The right ventricular systolic pressure is 20 mmHg. Normal right atrial pressure. There is no evidence of pulmonary hypertension. Great Vessels All visible segments of the aorta are normal in size. The pulmonary artery was not well visualized. Venous The inferior vena cava is normal in size and collapses greater than 50% with inspiration. Pericardium/Pleural There is no evidence of pericardial effusion. Prior Study Comparison No prior study available for comparison. Measurements 2D Linear Measurements IVSd: 0.62 0.6-0.9/0.6-1.0 cm LVIDd: 5.24 3.9-5.3/4.2-5.9 cm LVIDd Index: 3.16 2.4-3.2/2.2-3.1 cm/m2 LVIDs: 3.17 2.0-3.6 cm LVPWd: 0.81 0.7-1.1 cm LA Diam: 3.50 2.7-3.8/3.0-4.0 cm LAIDs Index: 2.11 1.5-2.3 cm/m2 LV Mass: 158.56 67-162/88-224 g LV Mass Index: 95.52 43-95/49-115 g/m2 LVOT Diam: 1.90 3.0+(-)1.3 cm 2D Systolic Function EF 4C: 57.40 >55% EF 2C: 54.60 >55% EF BiP: 54.50 >55% Mitral Valve MV Pk E: 0.60 MV PK A: 0.55 MV Decel Time: 224.00 E/A: 1.10 E'Lateral: 10.20 E'Medial: 9.14 E/E' Med: 6.60 E/E' Lat: 5.90 PHT: 66.00 MVA PHT: 3.33 Decel [place]: 2.67 Aortic Valve AoV Pk Nba: 1.22 AoV Mn Nba: 0.81 AoV VTI: 0.26 AoV Pk Grad: 6.00 Aov Mn Grad: 3.00 KARMEN Cont.VTI: 2.17 LVOT LVOT Pk Nba: 0.98 LVOT Mn Nba: 0.68 LVOT VTI: 0.20 LVOT Pk Grad: 4.00 LVOT Mn Grad: 2.00 LVOT Diam: 1.90 LVOT Area: 2.84 Diastolic Function MV Pk E: 0.60 MV Pk A: 0.55 E/A: 1.10 E'Medial: 9.14 E/E' Med: 6.60 E' Laterial: 10.20 E/E' Lat: 5.90 Right Ventricle TAPSE (mm): 24.30 TVS' Nba: 10.40 Tricuspid Valve TR Pk Nba: 2.05 TR Pk Grad: 17.00 RA Press: 3.00 RVSP: 20.00 Great Vessels Aorta Sinus of Valsalva: 2.47 2.0-3.[address] [place]: 2.02 1.7-3.4 cm Ao Asc: 2.30 2.1-3.4 cm Ao Arch: 2.20 Updated in Other Vendor System with Status of Final Dontrell Aguero MD electronically signed on 07/19/2023 5:38:18 PM with status of Final
== END ==
LOC: HO.CARD 09:26
PROVIDERS: PCP Internal Medicine; Visit Provider Internal Medicine
DX: I08.0 Rheumatic disorders of both mitral and aortic valves (principal)
CPT/HCPCS: 93306; 93356

== ENCOUNTER → 2023-07-18 10:26 | Outpatient (BNV) | payer OTHER, MEDICAID, SELFPAY | PROVIDERS: PCP Internal Medicine; Visit Provider Internal Medicine Cardiovascular Disease | DX: I08.0 Rheumatic disorders of both mitral and aortic valves (principal) | CPT/HCPCS: 93306 ==

== ENCOUNTER 2023-07-20 12:09 | Outpatient (REF) | payer OTHER, MEDICAID, SELFPAY ==
--- NOTE | ~2023-07-20 | MM_ITS ---
EXAMINATION: MM SCREENING DIGITAL BREAST TOMOSYNTHESIS, BILATERAL CLINICAL INFORMATION: Screening. Asymptomatic. COMPARISON: Mammography: This is a baseline study. TECHNIQUE: Digital breast tomosynthesis is performed in both the craniocaudal and mediolateral oblique views along with computer-aided detection (CAD). Synthesized 2D images are generated from the tomosynthesis. FINDINGS: The breasts are heterogeneously dense, which may obscure small masses (ACR BI-RADS breast composition Category c). There are no significant masses, abnormal calcifications, or other abnormalities. MM/MM tomosynthesis screening BI IMPRESSION: No mammographic evidence of malignancy. ASSESSMENT: BI-RADS BI-RADS 1 - Negative RECOMMENDATION: Routine annual mammography screening. 1 year F/U This examination should not preclude the clinical evaluation of a suspicious palpable abnormality. This patient's information was entered into a reminder system with a target due date for their next mammogram.
== END 2023-07-20 12:10 | disposition home or self-care (01) ==
LOC: HO.MAMMO 12:09
PROVIDERS: PCP Internal Medicine; Visit Provider Internal Medicine
DX: Z12.31 Encounter for screening mammogram for malignant neoplasm of breast (principal)
CPT/HCPCS: 77063; 77067

== ENCOUNTER → 2023-07-20 12:30 | Outpatient (BNV) | payer OTHER, MEDICAID, SELFPAY | PROVIDERS: PCP Internal Medicine; Visit Provider Radiology Diagnostic Radiology | DX: Z12.31 Encounter for screening mammogram for malignant neoplasm of breast (principal) | CPT/HCPCS: 77063; 77067 ==

== ENCOUNTER 2023-07-20 12:34 | Outpatient (REF) | payer OTHER, MEDICAID, SELFPAY ==
[2023-07-20 13:04] LABS: MANUAL DIFF FLAG NO
[2023-07-20 13:39] LABS: Basophils Percent Auto 0.5 % (0-2); Eosinophils Absolute Auto 0.1 X10*3/uL (0.0-0.4); Eosinophils Percent Auto 1.2 % (0-4); Hematocrit 40.2 % (37.0-47.0); Hemoglobin 13.5 g/dl (12.0-16.0); Imm Gran Abs Auto 0.03 X10*3/uL (0.00-0.03); Imm Gran Pct Auto 0.4 % (0.0-0.4); Lymphocytes Absolute Auto 2.3 X10*3/uL (1.2-4.9); Lymphocytes Percent Auto 28.7 % (20-40); Mean Corpuscular HGB Conc 33.6 g/dl (31.0-35.0); Mean Corpuscular Hemoglobin 30.3 pg (27.0-33.0); Mean Corpuscular Volume 90.3 fL (80.0-98.0); Mean Platelet Volume 9.7 fL (9.4-12.3); Monocytes Absolute Auto 0.5 X10*3/uL (0.1-1.2); Neutrophils Absolute Auto 5.1 x10*3/uL (2.0-8.3); Neutrophils Percent Auto 63.2 % (45-73); Platelet Count 348 X10*3/uL (160-400); Red Blood Count 4.45 X10*6/uL (4.20-5.50); Red Cell Distribution Width 12.3 % (11.0-16.0)
[2023-07-21 01:39] LABS: CT PCR NOT DETECTED (Not Detect.); NG PCR NOT DETECTED (Not Detect.)
[2023-07-22 08:55] LABS: Syphilis Screen Nonreactive (Nonreactive)
[2023-07-22 09:11] LABS: HBS Num1 109.24 mIU/mL (0-7.99); HBsAGNum1 0.41 S/CO (0.00-0.99); HIV AB/AG Nonreactive (Nonreactive); HIV Num 1 0.05 S/CO (0.00-0.99); Hepatitis B Core Antibody Nonreactive (Nonreactive); Hepatitis B Surface Antigen Negative (Negative); ~HepC Num1 0.16 S/CO (0.00-0.79); ~Hepatitis B Surface Antibody REACTIVE (Nonreactive); ~Hepatitis C Antibody Nonreactive (Nonreactive)
== END 2023-07-20 12:35 | disposition home or self-care (01) ==
LOC: HO.LAB 12:34
PROVIDERS: Visit Provider Psychiatry & Neurology Psychiatry
DX: Z11.4 Encounter for screening for human immunodeficiency virus [HIV] (principal); F33.1 Major depressive disorder, recurrent, moderate; Z20.2 Contact with and (suspected) exposure to infections with a predominantly sexual mode of transmission
CPT/HCPCS: 0353U; 85025; 86704; 86706; 86780; 86803; 87340; 87389

== ENCOUNTER 2023-07-26 12:15 | Outpatient (RCR) | payer OTHER, MEDICAID, SELFPAY ==
[2023-07-11 11:40] VITALS: BP 95/73; PULSE 84; TEMP 36.9
[2023-07-11 11:42] VITALS: BMI 29.8
--- NOTE | 2023-07-11 12:07 | PC.ADMIT ---
Patient is a 38 year old female who self referred to PHP d/t increased sxs of depression and anxiety with panic attacks. She denied SI. Patient reportedly has a history of 2 SA via overdose and was last hospitalized inpatient on from 04/13-04/17/23. Patient lives with her 4 year old son and partner who is her son's father. Allegra is unable to identify any triggers leading to admission. Allegra is alert and oriented x4. Calm and cooperative. Presented with depressed mood and anxious affect. Denied SI. I gave Allegra a copy of her safety plan if needed. Medications reconciled with Allegra and pharmacy. She reports taking medications as prescribed.
--- NOTE | 2023-07-11 16:19 | HO.PHP ---
Client's case has been opened and reviewed in treatment team
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
--- NOTE | 2023-07-20 21:25 | P.PNPSP_ITS ---
Subjective Subjective Date of Service: 07/20/23 Reason For Visit: anxiety Interim History: Patient seen for follow-up. No acute issues or concerns. Allegra is doing ok . She has been taking the PRN 50 mg hydroxyzine for sleep with varied effect. Sometimes she is still waking at night +/- stress dreams. Even on nights when her sleep is not disrupted she is still not feeling rested in the morning. Energy is low during the day. She denies any disruptions/noise in the environment contributing to sleep disturbance (in fact she can not hear anything after removing her hearing aids at night). She is taking Buspar 30 mg BID (in AM and HS) she also takes clonidine 0.1 mg qHS. She denies any adverse effects from medications. She reports her as euthymic. Denies any helplessness, hopelessness or SI. No evidence of beverly or psychosis. Appetite is stable. ROS otherwise negative. Medication Compliance: Yes Side effects from medications: No Attending Groups: Yes Review of Systems Acute medical concerns: No Mental Status Exam Mental Status Exam Narrative: Patient Appearance: Appropriate Level of Consciousness: Awake and Alert Patient Behavior: Appropriate and Cooperative Mood Description: Depressed Affect Description: Calm Ability to Follow Directions: Excellent Speech Pattern: Appropriate and Spontaneous Speech Memory Description: Remote Impaired and Normal for Patient Hallucinations: None Delusions: Not Present Thought Process: Linear, coherent Thought Content: relevant to stressors, future-oriented, concrete Judgement and Insight: good Diagnostics Vital Signs (24Hr): BMI result Body Mass Index 29.8 Assessment & Plan Assessment & Plan (1) Generalized anxiety disorder: Status: Acute Code(s): F41.1 - Generalized anxiety disorder (2) Major depress dis, severe: Status: Acute Code(s): F32.2 - Major depressive disorder, single episode, severe without psychotic features (3) PTSD (post-traumatic stress disorder): Status: Acute Code(s): F43.10 - Post-traumatic stress disorder, unspecified Plan Will try each of the following strategies for 2-3 days before moving to the n ext: 1) move Buspar to 5 pm 2) increase hydroxyzine to 75 - 100 mg qhs 3) increase clonidine to 0.2 mg qHS (pt educated on r/b/se of hydroxyzine and clonidine respectively) If sleep does not improve, we may consider other options (ie switching from clonidine to prazosin, or other options) given sleep disturbance felt to be stemming from somatic anxiety/increased sympathetic tone continue in PHP Patient educated on: diagnosis Informed Consent: understands Reason for contiued partial hosp. stay Substantial Risk for: inability to function, rapid decompensation and med/psych decompensation Certification I certify that partial hospital treatment is medically necessary due to the symptoms and problems resulting from the patient's mental illness and the failure to treat the patient at the partial hospital level of care would likely result in the patient requiring inpatient psychiatric care which could not be prevented at a less intensive level of care. Total time managing care of this patient today _30___ minutes. Discharge Plan Discharge Attending provider: [place] Medications: Continued hydroxyzine pamoate 25 mg capsule 25 - 50 mg PO BID PRN (Reason: anxiety) lamotrigine 100 mg tablet 100 mg PO DAILY fluoxetine [Prozac] 40 mg capsule 40 mg PO DAILY clonidine HCl 0.1 mg tablet See Rx Instructions .ROUTE .COMPLEX Rx Instructions: Take 1/2 tab in the am and 1 tab in the evening. buspirone 30 mg tablet 30 mg PO BID
--- NOTE | 2023-07-26 17:47 | HO.PHPPROGNO ---
Subjective Subjective Date of Service: 07/26/23 Reason For Visit: anxiety Interim History: Patient seen for follow-up; plan for discharge today. No acute issues or concerns. Allegra reports she has benefitted from her time here at [facility]. She reports her mood has been good but also feels anxious about leaving, and mostly says she will miss being in groups, even though she has some social anxiety, she still gains a lot from the discussions and her anxiety became more manageable. She feels the structure and supports help stabilize her. She continues on medication without any issues. Denies any side effects. She denies any hopelessness or SI. Appetite, energy are intact. Sleep is variable, she does remove her hearing aids at night she denies there is any environmental factors or noise that is interfering with sleep. PRN meds are helpful when she takes them. Denies any issues with alcohol or substance use. Denies any safety concerns at home. Medication Compliance: Yes Side effects from medications: No Attending Groups: Yes Review of Systems Acute medical concerns: No Mental Status Exam Mental Status Exam Narrative: Alert, oriented, in no acute distress. Casually dressed. Groomed. Calm, cooperative, forthcoming. Eye contact.. Mood euthymic, less anxious. Affect appropriate. Normal speech.. No latency or pressured speech. Thought process is goal-directed. Thought content relevant to stressors, future-oriented, no paranoid or delusional content elicited, some future-orientation. Denies SI or HI on inquiry. No evidence of psychosis. Cognition grossly intact. Sensorium clear. Insight fair/good. Judgment intact. Diagnostics Vital Signs (24Hr): BMI result Body Mass Index 29.8 Assessment & Plan Assessment & Plan (1) Generalized anxiety disorder: Status: Acute Code(s): F41.1 - Generalized anxiety disorder (2) Major depress dis, severe: Status: Acute Code(s): F32.2 - Major depressive disorder, single episode, severe without psychotic features (3) PTSD (post-traumatic stress disorder): Status: Acute Code(s): F43.10 - Post-traumatic stress disorder, unspecified (4) Hearing impaired person: Qualifiers: Laterality: unspecified laterality Qualified Code(s): H91.90 - Unspecified hearing loss, unspecified ear Status: Acute Code(s): H91.90 - Unspecified hearing loss, unspecified ear Plan Discharge from [facility] continue regular medications, will defer further medication management to outpatient provider next appointment on 08/06 MEDICATIONS: Buspar 30 mg BID fluoxetine 40 mg qAM lamotrigine 100 mg qd hydroxyzine pamoate 25-50 mg BID PRN clonidine 0.05 mg qAM and 0.1 mg qhs Patient educated on: diagnosis and medication risk/benefits Informed Consent: understands Reason for contiued partial hosp. stay Substantial Risk for: stable for discharge Certification I certify that partial hospital treatment is medically necessary due to the symptoms and problems resulting from the patient's mental illness and the failure to treat the patient at the partial hospital level of care would likely result in the patient requiring inpatient psychiatric care which could not be prevented at a less intensive level of care. Total time managing care of this patient today _30___ minutes. Discharge Plan Discharge Attending provider: [place] Medications: Continued hydroxyzine pamoate 25 mg capsule 25 - 50 mg PO BID PRN (Reason: anxiety) lamotrigine 100 mg tablet 100 mg PO DAILY fluoxetine [Prozac] 40 mg capsule 40 mg PO DAILY clonidine HCl 0.1 mg tablet See Rx Instructions .ROUTE .COMPLEX Rx Instructions: Take 1/2 tab in the am and 1 tab in the evening. buspirone 30 mg tablet 30 mg PO BID Stand Alone Forms: Patient Portal Discharge page Patient Education: Depression (DC)
== END 2023-07-26 23:59 | disposition home or self-care (01) ==
LOC: HO.PHPA 12:15
PROVIDERS: Visit Provider Psychiatry & Neurology Psychiatry
DX: F41.1 Generalized anxiety disorder (principal); F32.2 Major depressive disorder, single episode, severe without psychotic features; F43.10 Post-traumatic stress disorder, unspecified; H91.90 Unspecified hearing loss, unspecified ear; Z79.899 Other long term (current) drug therapy
CPT/HCPCS: 90791; 90853

== ENCOUNTER 2024-01-19 18:17 | Emergency (ER) | payer OTHER, SELFPAY ==
--- NOTE | ~2024-01-19 | XR_ITS ---
EXAMINATION: XR CHEST CLINICAL INFORMATION: Productive cough COMPARISON: 08/30/2022 TECHNIQUE: Frontal view of the chest was obtained. FINDINGS: Patchy airspace opacities are present in the left midlung there is no possibility of pneumonia. No pneumothorax or pleural effusion. Cardiac and mediastinal contours are normal. Pulmonary vasculature is unremarkable. No acute osseous findings. XR/XR chest 1V IMPRESSION: Patchy airspace opacities in the left midlung, concerning for pneumonia.
[2024-01-19 18:27] VITALS: BP 110/63; PULSE 91; RESP 20; TEMP 37.2; O2SAT 98; BMI 39.1
[2024-01-19 20:50] LABS: MANUAL DIFF FLAG NO
[2024-01-19 20:52] LABS: Basophils Absolute Auto 0.1 X10*3/uL (0.0-0.2); Basophils Percent Auto 0.4 % (0-2); Eosinophils Absolute Auto 0.2 X10*3/uL (0.0-0.4); Eosinophils Percent Auto 1.6 % (0-4); Hemoglobin 14.4 g/dl (12.0-16.0); Imm Gran Abs Auto 0.04 X10*3/uL (0.00-0.03); Imm Gran Pct Auto 0.3 % (0.0-0.4); Lymphocytes Absolute Auto 2.1 X10*3/uL (1.2-4.9); Lymphocytes Percent Auto 17.5 % (20-40); Mean Corpuscular HGB Conc 35.1 g/dl (31.0-35.0); Mean Corpuscular Hemoglobin 31.1 pg (27.0-33.0); Mean Corpuscular Volume 88.6 fL (80.0-98.0); Mean Platelet Volume 9.3 fL (9.4-12.3); Monocytes Absolute Auto 0.9 X10*3/uL (0.1-1.2); Neutrophils Absolute Auto 8.9 x10*3/uL (2.0-8.3); Neutrophils Percent Auto 73.2 % (45-73); Platelet Count 310 X10*3/uL (160-400); Red Blood Count 4.63 X10*6/uL (4.20-5.50); Red Cell Distribution Width 12.1 % (11.0-16.0); White Blood Count 12.2 X10*3/uL (4.8-10.8)
[2024-01-19 20:59] LABS: IDNOW Serial# 58CA691E; Strep A Nucleic Acid n (Negative)
[2024-01-19 21:07] LABS: Alanine Aminotransferase 14 U/L (0-31); Albumin Level 4.3 g/dL (3.5-5.0); Alkaline Phosphatase 74 U/L (39-117); Anion Gap 16 (12-20); Aspartate Amino Transferase 21 U/L (5-31); Bilirubin Total 0.8 mg/dL (0.0-1.0); Blood Urea Nitrogen 11 mg/dL (9-16); Carbon Dioxide 18 mmol/L (22-29); Chloride 108 mmol/L (96-108); Creatinine Clr Calc Pharmacy 96.2; Estimated Glomerular Filt Rate > 60; Glucose Random 68 mg/dL (60-115); Potassium 3.8 mmol/L (3.3-5.1); Sodium 138 mmol/L (135-145); Total Protein 7.6 g/dL (6.5-8.0)
[2024-01-19 21:30] LABS: Influenza A PCR NEGATIVE (Negative); Influenza B PCR NEGATIVE (Negative); Resp Syncy Virus RNA Qual PCR NEGATIVE (Negative); SARS COV2 PCR INHOUSE NEGATIVE (Negative)
--- NOTE | 2024-01-19 23:14 | ED_ITS ---
HPI - General Adult General Chief complaint: Upper Respiratory Symptoms Stated complaint: Flu like symptoms Time Seen by Provider: 01/19/24 23:14 Source: patient and family Mode of arrival: ambulatory Limitations: no limitations History of Present Illness ED Provider: Martha Anton NP HPI narrative: Patient is a 38-year-old female with history of PTSD, MDD, generalized anxiety disorder, mitral and aortic insufficiency, hearing loss presenting to the emergency department with complaint of productive cough, nausea, diarrhea, fatigue, sweats/chills for the past 3 days. States she does not require deaf or staff interpreter. Reports multiple episodes of diarrhea yesterday, 1 episode this morning. Denies hematochezia or melena. Denies vomiting but reports increasing nausea with any p.o. intake. Has been able to tolerate p.o. food and fluids today. Has not checked temperature with thermometer but reports subjective sweats and chills. Denies any chest pain, palpitations. Denies abdominal pain. Denies any urinary urgency, frequency, dysuria or other urinary symptoms. Does report mild dyspnea. MD complaint: Cough, fatigue, diarrhea Onset (ago): day(s) Exacerbating factors: eating Associated symptoms: cough, fever/chills, nausea/vomiting and shortness of breath Treatments prior to arrival: none Related Data Home Medications ?Medication ?Instructions ?Recorded ?Confirmed buspirone 30 mg tablet 30 mg PO BID 05/08/23 07/11/23 clonidine HCl 0.1 mg tablet See Rx Instructions .Route .COMPLEX 05/08/23 07/11/23 fluoxetine 40 mg capsule (Prozac) 40 mg PO DAILY 05/08/23 07/11/23 hydroxyzine pamoate 25 mg capsule 25 - 50 mg PO BID PRN anxiety 07/11/23 07/11/23 lamotrigine 100 mg tablet 100 mg PO DAILY 07/11/23 07/11/23 Previous Rx's ?Medication ?Instructions ?Recorded albuterol sulfate 90 mcg/actuation 2 puff inhalation Q4-6H PRN 01/20/24 aerosol inhaler (ProAir HFA) shortness of breath or wheezing #6.7 grams amoxicillin 250 mg/5 mL oral 1,000 mg (20 mL) PO TID 5 days 01/20/24 suspension #300 mL benzonatate 100 mg capsule 100 mg PO TID PRN cough #15 caps 01/20/24 Allergies Allergy/AdvReac Type Severity Reaction Status Date / Time oxycodone [From Percocet] Allergy Mild ITCH/HIVES Verified 01/19/24 18:30 BLUE CHEESE Allergy Unknown HIVES Uncoded 06/19/23 07:44 Percocet Allergy Unknown hives Uncoded 06/19/23 07:44 Review of Systems 2 Review of Systems: As per hPI. Yes all other systems are reviewed and are negative Constitutional: Constitutional: Reports as per HPI [facility] Past Medical History Medical History (Updated 01/20/24 @ 02:04 by Tg Anton NP) Dermoid cyst Scoliosis Mitral and aortic insufficiency Asthma, exercise induced GERD (gastroesophageal reflux disease) History of behavioral and mental health problems Encounter for behavioral health screening Surgical History (Updated 07/11/23 @ 11:39 by Uyen Mcgee RN) History of elbow surgery H/O shoulder surgery History of surgery on lower extremity H/O section Family History Family History Mother Mental health disorder Father History of quadruple bypass Social History Social History Household Members: Significant Other, Family and Children Housing: House Unable to assess alcohol history related to: Unknown Alcohol intake: never Patient Tobacco Use Status: Never used Tobacco e-Cigarette/Vaping Use: Never Used Second Hand Smoke Exposure: No Advance Directives: No Advance Directives Information Provided: No Do you have a plan to hurt others: No Plan service: No Current occupational status: disabled Cognitive needs: No Hearing needs: Yes Vision needs: Yes Physical Exam ED Vital Signs: Vital Signs - 24 hr 01/19/24 18:27 01/19/24 23:24 01/20/24 02:13 Temperature 98.9 F Pulse Rate 91 75 86 Respiratory Rate 20 16 16 Blood Pressure 110/63 113/64 113/73 Pulse Oximetry 98 97 Oxygen Delivery Method Room Air Room Air BMI result Body Mass Index 39.1 Vital signs have been reviewed and appear to be correct. Blood pressure normal. Heart rate normal. Respiratory rate normal. Temperature normal. Oxygen saturation normal. Const General: cooperative, healthy appearing and no acute distress Orientation/consciousness: oriented to person, oriented to place, oriented to time and patient oriented x3 Limitations: no limitations HENMT Head: Yes normocephalic and Yes atraumatic Ears: external ears normal General nose exam: Normal external nose present Face and sinus: Yes face symmetric Mouth: oropharynx normal and moist mucous membranes Throat: Yes uvula midline Eyes Pupils: Equal, round and reactive pupils present Neck Neck: Yes normal visual inspection and Yes supple Resp Effort & Inspection: normal respiratory effort and able to speak in complete sentences Auscultation: clear to auscultation bilaterally and wheezes inspiratory wheezes (mild, scattered) Cardio Rate: regular rate Rhythm: regular rhythm Heart sounds: S1 normal heart sound present and S2 normal heart sound present GI Palpation (GI): Soft to palpation and nontender Auscultation: normoactive bowel sounds General: Yes no CVA tenderness Back/Spine/Pelvis Back: no CVA tenderness Skin General skin exam: elasticity normal and turgor normal Neuro General: oriented to person, oriented to place, oriented to time, patient oriented x3, moves all extremities, no focal motor deficits and CN's II-XI intact bilaterally Cranial nerves: Yes Equal, round and reactive pupils present Cognition (Neuro): normal cognition Extrem General: Yes full ROM, Yes no pedal edema and Yes no calf tenderness Psych Mental Status: mental status grossly normal Affect: normal affect Thought process: Normal thought process present Medical Decision Making Medical Decision Making MDM Narrative: Patient is a 38-year-old female with history of PTSD, MDD, generalized anxiety disorder, mitral and aortic insufficiency, hearing loss presenting to the emergency department with complaint of productive cough, nausea, diarrhea, fatigue, sweats/chills for the past 3 days. On exam patient is awake, A+Ox3, VS WNL, afebrile, normal neurological exam without focal deficits, physical exam findings as above. Given reported symptoms and physical exam findings, initial differential includes viral illness, COVID, flu, RSV, strep pharyngitis, bronchitis, pneumonia, gastroenteritis. Labs notable for mild leukocytosis, no significant electrolyte abnormalities. Viral serology and strep swab negative. X-ray notable for patchy airspace opacities in left mid lung concerning for pneumonia. My interpretation is in agreement with the radiologist's interpretation. Will treat patient with amoxicillin 1g TID x 5 days. Oxygen saturation is within normal limits and patient is tolerating p.o., feel she is stable for discharge home at this time. Discussed with patient that she will need to follow up with her primary care provider for repeat chest x-ray to ensure resolution of pneumonia. Return precautions discussed at bedside. Patient verbalized understanding of and agreement with plan. Differential Diagnosis Differential Diagnoses: The differential diagnosis associated with the presentation includes As per [facility]. Admission/Observation Consideration of admission/observation: Escalation of care including admission/observation considered Patient would have been admitted to the hospital had their work up had any findings where hospital admission was appropriate and their clinical presentation warranted hospital admission. Lab Data [facility] Lab Attestation statement: I reviewed the patient's lab results. As per MDM. 01/19/24 20:45 01/19/24 20:45 Labs: Lab Results 01/19/24 Range/Units 20:45 WBC 12.2 H (4.8-10.8) X10*3/uL RBC 4.63 (4.20-5.50) X10*6/uL Hgb 14.4 (12.0-16.0) g/dl Hct 41.0 (37.0-47.0) % MCV 88.6 (80.0-98.0) fL MCH 31.1 (27.0-33.0) pg MCHC 35.1 H (31.0-35.0) g/dl RDW 12.1 (11.0-16.0) % Plt Count 310 (160-400) X10*3/uL MPV 9.3 L (9.4-12.3) fL Immature Gran % (Auto) 0.3 (0.0-0.4) % Neut % (Auto) 73.2 H (45-73) % Lymph % (Auto) 17.5 L (20-40) % Winn % (Auto) 7.0 (2-11) % Eos % (Auto) 1.6 (0-4) % Baso % (Auto) 0.4 (0-2) % Lymph # (Auto) 2.1 (1.2-4.9) X10*3/uL Winn # (Auto) 0.9 (0.1-1.2) X10*3/uL Eos # (Auto) 0.2 (0.0-0.4) X10*3/uL Baso # (Auto) 0.1 (0.0-0.2) X10*3/uL Abs Immat Gran (auto) 0.04 H (0.00-0.03) X10*3/uL Absolute Neuts (auto) 8.9 H (2.0-8.3) x10*3/uL Absolute Nucleated RBC 0.000 (0.0-0.012) X10*3/uL Nucleated RBC % (auto) 0.0 (0.0-0.2) /100WBC Sodium 138 (135-145) mmol/L Potassium 3.8 (3.3-5.1) mmol/L Chloride 108 (96-108) mmol/L Carbon Dioxide 18 L (22-29) mmol/L Anion Gap 16 (12-20) BUN 11 (9-16) mg/dL Creatinine 0.78 (0.5-1.4) mg/dL Estim Creat Clear Calc 96.2 Estimated GFR > 60 Random Glucose 68 (60-115) mg/dL Calcium 9.0 (8.4-10.2) mg/dL Total Bilirubin 0.8 (0.0-1.0) mg/dL AST 21 (5-31) U/L ALT 14 (0-31) U/L Alkaline Phosphatase 74 (39-117) U/L Total Protein 7.6 (6.5-8.0) g/dL Albumin 4.3 (3.5-5.0) g/dL Influenza Type A (PCR) NEGATIVE (Negative) Influenza Type B (PCR) NEGATIVE (Negative) RSV RNA Qual (PCR) NEGATIVE (Negative) SARS-CoV-2 RNA (RT-PCR) NEGATIVE (Negative) S. pyogenes GrpA MIRA n (Negative) Independent Interpretation I performed an independent interpretation of an: Plain X-Ray Interpretation: Left mid lung pneumonia Radiology Impression Discussion of test interpretation with radiology: I have reviewed the radiologist's reading. Radiologist Impression: XR/XR chest 1V IMPRESSION: Patchy airspace opacities in the left midlung, concerning for pneumonia. External Record Review External record reviewed: Inpatient record, Office record and Outpatient record Prescription Management I considered prescription management with: Antibiotic Discharge Plan Discharge Clinical Impression: Pneumonia involving left lung Patient Disposition: Home, Self-Care Instructions: Community Acquired Pneumonia (DC) Additional Instructions: You were evaluated in the emergency department today for cough and shortness of breath. Your chest x-ray shows evidence of pneumonia. You are being treated with antibiotics, please complete the full course as prescribed. You are also being prescribed an inhaler and cough medicine which you can use per instructions. Please call your primary care provider within the next 2-3 days to schedule a follow-up appointment. You will need a repeat chest x-ray to confirm resolution of your pneumonia. Return to the emergency department if you develop worsening shortness of breath, chest pain, palpitations, fever 100.4? F or greater, or any other concerning symptoms. Prescriptions: New amoxicillin 250 mg/5 mL suspension for reconstitution 1,000 mg PO TID 5 Days Qty: 300 0RF albuterol sulfate [ProAir HFA] 90 mcg/actuation HFA aerosol inhaler 2 puff inhalation Q4-6H PRN (Reason: shortness of breath or wheezing) Qty: 6.7 0RF benzonatate 100 mg capsule 100 mg PO TID PRN (Reason: cough) Qty: 15 0RF No Action hydroxyzine pamoate 25 mg capsule 25 - 50 mg PO BID PRN (Reason: anxiety) lamotrigine 100 mg tablet 100 mg PO DAILY fluoxetine [Prozac] 40 mg capsule 40 mg PO DAILY clonidine HCl 0.1 mg tablet See Rx Instructions .ROUTE .COMPLEX Rx Instructions: Take 1/2 tab in the am and 1 tab in the evening. buspirone 30 mg tablet 30 mg PO BID Print Language: Georgian
[2024-01-19 23:24] VITALS: BP 113/64; PULSE 75; RESP 16
[2024-01-20 02:13] VITALS: BP 113/73; PULSE 86; RESP 16; O2SAT 97
== END 2024-01-20 03:12 | disposition home or self-care (01) ==
PROVIDERS: Emergency Provider Emergency Medicine
DX: J18.9 Pneumonia, unspecified organism (principal); Z03.818 Encounter for observation for suspected exposure to other biological agents ruled out; R11.0 Nausea; R05.9 Cough, unspecified; R06.02 Shortness of breath; Z79.899 Other long term (current) drug therapy
CPT/HCPCS: 0241U; 71045; 80053; 85025; 87651; 99283

== ENCOUNTER 2024-03-18 14:28 | Emergency (ER) | payer OTHER, SELFPAY ==
--- NOTE | ~2024-03-18 | XR_ITS ---
EXAMINATION: XR SHOULDER, LEFT CLINICAL INFORMATION: Left shoulder pain COMPARISON: None available. TECHNIQUE: AP external rotation, Grashey, scapular Y, and axillary views of the left shoulder. FINDINGS: There is moderate narrowing of the left AC joint. Left glenohumeral joint intact. No fracture, dislocation or destructive process. XR/XR shoulder LT min 2V IMPRESSION: Mild arthritic change in the left AC joint.
--- NOTE | ~2024-03-18 | XR_ITS ---
EXAMINATION: XR SHOULDER, RIGHT CLINICAL INFORMATION: Right shoulder pain COMPARISON: None available. TECHNIQUE: AP external rotation, Grashey, scapular Y, and axillary views of the right shoulder. FINDINGS: Moderate narrowing of the right AC joint. The right glenohumeral joint is intact. There is no fracture or destructive process. Alignment preserved. XR/XR shoulder RT min 2V IMPRESSION: Degenerative change right AC joint is noted. No acute findings.
--- NOTE | 2024-03-18 14:38 | ED_ITS ---
HPI - General Adult General Chief complaint: General Medical Stated complaint: Full body pains, tingling Time Seen by Provider: 03/18/24 19:29 Source: patient Mode of arrival: ambulatory Limitations: no limitations History of Present Illness ED Provider: Susan DORADO HPI narrative: 39-year-old female history of PTSD, major depression, anxiety, mitral and aortic insufficiency, hearing loss, presenting to the emergency department with complaints of pain to lower extremities radiating up into upper extremities/arms bilaterally she tells me her entire body hurts. She reports this has been going on since the end of January, she reports it is a sore sensation throughout her body. She does not feel like they are weak she just feels pain. She denies trauma. She does report she has been more active than usual she is usually very sedentary however has been getting out of her house more often. She denies numbness and tingling. Denies fevers, chills, chest pain, shortness of breath, nausea, vomiting, abdominal pain, changes in urinary habits or bowel habits. No recent surgeries. Related Data Home Medications ?Medication ?Instructions ?Recorded ?Confirmed buspirone 30 mg tablet 30 mg PO BID 05/08/23 07/11/23 clonidine HCl 0.1 mg tablet See Rx Instructions .Route .COMPLEX 05/08/23 07/11/23 fluoxetine 40 mg capsule (Prozac) 40 mg PO DAILY 05/08/23 07/11/23 hydroxyzine pamoate 25 mg capsule 25 - 50 mg PO BID PRN anxiety 07/11/23 07/11/23 lamotrigine 100 mg tablet 100 mg PO DAILY 07/11/23 07/11/23 Previous Rx's ?Medication ?Instructions ?Recorded albuterol sulfate 90 mcg/actuation 2 puff inhalation Q4-6H PRN 01/20/24 aerosol inhaler (ProAir HFA) shortness of breath or wheezing #6.7 grams amoxicillin 250 mg/5 mL oral 1,000 mg (20 mL) PO TID 5 days 01/20/24 suspension #300 mL benzonatate 100 mg capsule 100 mg PO TID PRN cough #15 caps 01/20/24 ketorolac 10 mg tablet 10 mg PO TID PRN pain 5 days #15 03/18/24 tabs prednisone 20 mg tablet 60 mg (3 x 20 mg) PO DAILY 5 days 03/18/24 #15 tabs Allergies Allergy/AdvReac Type Severity Reaction Status Date / Time oxycodone [From Percocet] Allergy Mild ITCH/HIVES Verified 03/18/24 14:39 BLUE CHEESE Allergy Unknown HIVES Uncoded 06/19/23 07:44 Percocet Allergy Unknown hives Uncoded 06/19/23 07:44 Review of Systems 2 Review of Systems: Yes all other systems are reviewed and are negative PMFSH Past Medical History Attestation statement: The following information was validated with the patient. Source: old records reviewed and nursing notes reviewed Medical History (Updated 03/18/24 @ 21:26 by TAYLOR Daily) Dermoid cyst Scoliosis Mitral and aortic insufficiency Asthma, exercise induced GERD (gastroesophageal reflux disease) History of behavioral and mental health problems Encounter for behavioral health screening Surgical History (Updated 07/11/23 @ 11:39 by Uyen Mcgee RN) History of elbow surgery H/O shoulder surgery History of surgery on lower extremity H/O section Family History Family History Mother Mental health disorder Father History of quadruple bypass Social History Social History Household Members: Significant Other, Family and Children Housing: House Unable to assess alcohol history related to: Unknown Alcohol intake: never Patient Tobacco Use Status: Never used Tobacco Smoked in Last 30 Days: No e-Cigarette/Vaping Use: Never Used Second Hand Smoke Exposure: No Use of substances other than those prescribed or required for medical reasons: No Advance Directives: No Advance Directives Information Provided: No service: No Current occupational status: disabled Cognitive needs: No Hearing needs: Yes Vision needs: Yes Physical Exam ED Vital Signs: Vital Signs - 24 hr 03/18/24 14:39 03/18/24 18:49 Temperature 98.2 F 99.7 F Pulse Rate 81 90 Respiratory Rate 16 20 Blood Pressure 113/70 124/72 Pulse Oximetry 100 100 Oxygen Delivery Method Room Air Room Air BMI result Body Mass Index 31.2 vss Appearance: Alert.? Oriented X3.? No acute distress.? Head: Normocephalic, atraumatic, no step-offs or deformities Eyes: Pupils equal, round and reactive to light.? ENT: Pharynx normal.? Neck: Normal inspection.? Neck supple.? CVS: Normal heart rate and rhythm.? Pulses normal.? Respiratory: No respiratory distress.? Breath sounds normal.? Abdomen: Soft and nontender.? Skin: Skin warm and dry.? Normal skin color.? Normal skin turgor.? Extremities: No lower extremity edema.? No calf ttp. 5/5 strength to bilateral upper and lower extremities + normal lower extremity reflexes 2 patella, Bhargav b/l Neuro: Oriented X 3.? No motor deficit.? No sensory deficit. CN 2-12 intact Course Course Course Narrative: This is a Rapid Medical Examination (RME) performed by Blaze Winkler PA-C in triage. Full HPI, ROS, assessment and treatment plan per primary provider in the Main ED. 39 yo female with history of PTSD, anxiety, depression, who presents to the ER for evaluation of bilateral shoulder pain for the last several weeks. She also reports being seen at an Urgent Care recently for right hip and leg pain, told that it was sciatica. She was given ibuprofen and it has not been helping. Has rx for PT that starts in March. Has limited ROM of both arms due to pain. Pain is worse in the morning. Tearful in triage. Plan: XR shoulders Reevaluation(s) Reevaluation #1: CBC with a normocytic anemia. Also noted to have elevated ESR 59. Chemistry with no acute electrolyte abnormalities needing intervention. CPK normal. CRP 4.64. This does support a diagnosis of possible polymyalgia rheumatica. No headache or temporal pain unlikely giant cell arteritis. Time: 21:22 Reevaluation #2: Patient feeling better after Toradol. I do suspect this is polymyalgia rheumatica. Patient will go home with rheumatology follow-up. I did discuss this case with my attending who agrees with treatment plan. Time: 21:38 Medical Decision Making Medical Decision Making MDM Narrative: 39-year-old female presents with pain throughout her body she reports it started in her legs and now it is in her upper extremities, she reports pain however no weakness. Physical exam neurological assessment normal. Strength normal. Normal reflexes to lower extremities. History and physical exam concerning for fibromyalgia versus polymyalgia rheumatica. Unlikely Guillain-[place] this is not ascending paralysis, no inciting events. I do not suspect meningitis, encephalitis. Demyelinating process less likely. Will rule out metabolic derangement Plan labs, inflammatory markers. Differential Diagnosis Differential Diagnoses: The differential diagnosis associated with the presentation includes History and physical exam concerning for fibromyalgia versus polymyalgia rheumatica. Unlikely Guillain[place] this is not ascending paralysis, no inciting events. I do not suspect meningitis, encephalitis. Demyelinating process less likely. Will rule out metabolic derangement Admission/Observation Consideration of admission/observation: Escalation of care including admission/observation considered possible Lab Data MDM Lab Attestation statement: I reviewed the patient's lab results. 03/18/24 20:32 03/18/24 20:32 Labs: Lab Results 03/18/24 Range/Units 20:32 WBC 9.9 (4.8-10.8) X10*3/uL RBC 3.94 L (4.20-5.50) X10*6/uL Hgb 11.7 L (12.0-16.0) g/dl Hct 34.6 L (37.0-47.0) % MCV 87.8 (80.0-98.0) fL MCH 29.7 (27.0-33.0) pg MCHC 33.8 (31.0-35.0) g/dl RDW 11.9 (11.0-16.0) % Plt Count 397 D (160-400) X10*3/uL MPV 8.9 L (9.4-12.3) fL Immature Gran % (Auto) 0.4 (0.0-0.4) % Neut % (Auto) 68.1 (45-73) % Lymph % (Auto) 24.1 (20-40) % Wright % (Auto) 7.0 (2-11) % Eos % (Auto) 0.2 (0-4) % Baso % (Auto) 0.2 (0-2) % Lymph # (Auto) 2.4 (1.2-4.9) X10*3/uL Wright # (Auto) 0.7 (0.1-1.2) X10*3/uL Eos # (Auto) 0.0 (0.0-0.4) X10*3/uL Baso # (Auto) 0.0 (0.0-0.2) X10*3/uL Abs Immat Gran (auto) 0.04 H (0.00-0.03) X10*3/uL Absolute Neuts (auto) 6.7 (2.0-8.3) x10*3/uL Absolute Nucleated RBC 0.000 (0.0-0.012) X10*3/uL Nucleated RBC % (auto) 0.0 (0.0-0.2) /100WBC ESR 59 H (0-20) MM/HR Sodium 139 (135-145) mmol/L Potassium 3.7 (3.3-5.1) mmol/L Chloride 107 (96-108) mmol/L Carbon Dioxide 23 (22-29) mmol/L Anion Gap 13 (12-20) BUN 11 (9-16) mg/dL Creatinine 0.75 (0.5-1.4) mg/dL Estim Creat Clear Calc 87.7 Estimated GFR > 60 Random Glucose 81 (60-115) mg/dL Calcium 8.8 (8.4-10.2) mg/dL Magnesium 2.2 (1.6-2.6) mg/dL Total Bilirubin 0.4 (0.0-1.0) mg/dL AST 14 (5-31) U/L ALT 11 (0-31) U/L Alkaline Phosphatase 62 (39-117) U/L Total Creatine Kinase 8 L (26-140) U/L C-Reactive Protein 4.64 H (< or = 0.50) mg/dL Total Protein 7.1 (6.5-8.0) g/dL Albumin 3.7 (3.5-5.0) g/dL External Record Review External record reviewed: Inpatient record, Office record, Outpatient record, Prior outpatient labs, Prior outpatient radiology and Primary care record Prescription Management I considered prescription management with: Other (steroids ) Chronic Conditions Patient?s care impacted by: Other (Anxiety, depression, PTSD, mitral and aortic insufficiency.) Critical Care Time Critical Care Time Critical Care Time: No Discharge Plan Discharge Clinical Impression: Complaints of total body pain, Osteoarthritis Patient Disposition: Home, Self-Care Additional Instructions: Take your medications as prescribed. If you were prescribed antibiotics today, it is important that you take your medication to their entirety, do not skip any doses, do not finish them early. Follow-up with your primary care provider this week. Return to the emergency department with new or worsening symptoms. Such as fevers, chills, chest pain, shortness of breath, nausea, vomiting, dizziness, headache, vision changes, lethargy In case of emergency call 911 Toradol has been sent to your pharmacy, you tolerated this well in the department. Please take this as prescribed do not take this with ibuprofen, or other NSAIDs, do not mix this with alcohol. Side effects of this medication including increased risk for bleeding and possible kidney injury. Please follow-up with rheumatology and your primary care provider. XR/XR shoulder RT min 2V IMPRESSION: Degenerative change right AC joint is noted. No acute findings. XR/XR shoulder LT min 2V IMPRESSION: Mild arthritic change in the left AC joint. Prescriptions: New prednisone 20 mg tablet 60 mg PO DAILY 5 Days Qty: 15 0RF ketorolac 10 mg tablet 10 mg PO TID PRN (Reason: pain) 5 Days Qty: 15 0RF No Action hydroxyzine pamoate 25 mg capsule 25 - 50 mg PO BID PRN (Reason: anxiety) lamotrigine 100 mg tablet 100 mg PO DAILY amoxicillin 250 mg/5 mL suspension for reconstitution 1,000 mg PO TID 5 Days Qty: 300 0RF albuterol sulfate [ProAir HFA] 90 mcg/actuation HFA aerosol inhaler 2 puff inhalation Q4-6H PRN (Reason: shortness of breath or wheezing) Qty: 6.7 0RF benzonatate 100 mg capsule 100 mg PO TID PRN (Reason: cough) Qty: 15 0RF fluoxetine [Prozac] 40 mg capsule 40 mg PO DAILY clonidine HCl 0.1 mg tablet See Rx Instructions .ROUTE .COMPLEX Rx Instructions: Take 1/2 tab in the am and 1 tab in the evening. buspirone 30 mg tablet 30 mg PO BID Referrals: [facility] [place] Rhe[facility]ology Service [Provider Group] - 1 day ED Physician,Generic [Physician] - 2 days Stand Alone Forms: Work/School Release Print Language: Italian
[2024-03-18 14:39] VITALS: BP 113/70; PULSE 81; RESP 16; TEMP 36.8; O2SAT 100; BMI 31.2
[2024-03-18 18:49] VITALS: BP 124/72; PULSE 90; RESP 20; TEMP 37.6; O2SAT 100
--- NOTE | 2024-03-18 20:35 | PC.NURSE ---
labs obtained/sent to lab by Amarin.
[2024-03-18 20:38] LABS: MANUAL DIFF FLAG NO
[2024-03-18 20:40] LABS: Basophils Percent Auto 0.2 % (0-2); Eosinophils Percent Auto 0.2 % (0-4); Hematocrit 34.6 % (37.0-47.0); Hemoglobin 11.7 g/dl (12.0-16.0); Imm Gran Abs Auto 0.04 X10*3/uL (0.00-0.03); Imm Gran Pct Auto 0.4 % (0.0-0.4); Lymphocytes Absolute Auto 2.4 X10*3/uL (1.2-4.9); Lymphocytes Percent Auto 24.1 % (20-40); Mean Corpuscular HGB Conc 33.8 g/dl (31.0-35.0); Mean Corpuscular Hemoglobin 29.7 pg (27.0-33.0); Mean Corpuscular Volume 87.8 fL (80.0-98.0); Mean Platelet Volume 8.9 fL (9.4-12.3); Monocytes Absolute Auto 0.7 X10*3/uL (0.1-1.2); Neutrophils Absolute Auto 6.7 x10*3/uL (2.0-8.3); Neutrophils Percent Auto 68.1 % (45-73); Platelet Count 397 X10*3/uL (160-400); Red Blood Count 3.94 X10*6/uL (4.20-5.50); Red Cell Distribution Width 11.9 % (11.0-16.0); White Blood Count 9.9 X10*3/uL (4.8-10.8)
[2024-03-18 20:54] LABS: Alanine Aminotransferase 11 U/L (0-31); Albumin Level 3.7 g/dL (3.5-5.0); Alkaline Phosphatase 62 U/L (39-117); Anion Gap 13 (12-20); Aspartate Amino Transferase 14 U/L (5-31); Bilirubin Total 0.4 mg/dL (0.0-1.0); Blood Urea Nitrogen 11 mg/dL (9-16); C Reactive Protein 4.64 mg/dL (< or = 0.50); Calcium 8.8 mg/dL (8.4-10.2); Carbon Dioxide 23 mmol/L (22-29); Chloride 107 mmol/L (96-108); Creatinine Clr Calc Pharmacy 87.7; Estimated Glomerular Filt Rate > 60; Glucose Random 81 mg/dL (60-115); Magnesium 2.2 mg/dL (1.6-2.6); Potassium 3.7 mmol/L (3.3-5.1); Sodium 139 mmol/L (135-145); Total Protein 7.1 g/dL (6.5-8.0)
[2024-03-18 21:17] LABS: Erythrocyte Sedimentation Rate 59 MM/HR (0-20)
[2024-03-18] MEDS: Ketorolac Tromethamine 30 MG/ML VIAL IM (21:50)
[2024-03-18 21:58] VITALS: BP 124/72; PULSE 90; RESP 20; TEMP 37.6; O2SAT 100
== END 2024-03-18 21:58 | disposition home or self-care (01) ==
PROVIDERS: Physician Assistant; Emergency Provider Emergency Medicine
DX: M15.9 Polyosteoarthritis, unspecified (principal); M79.10 Myalgia, unspecified site; M25.512 Pain in left shoulder; M25.511 Pain in right shoulder; F43.10 Post-traumatic stress disorder, unspecified; F33.1 Major depressive disorder, recurrent, moderate; Z79.899 Other long term (current) drug therapy
CPT/HCPCS: 36415; 73030; 80053; 82550; 83735; 85025; 85652; 86140; 96372; 99284; J1885

== ENCOUNTER 2024-04-17 08:18 | Outpatient (AMB) | payer OTHER, SELFPAY ==
--- NOTE | 2024-04-17 08:19 | MHC.PC.OV ---
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 fluoxetine (Prozac) 40 mg PO DAILY hydroxyzine pamoate 25 - 50 mg PO BID PRN ketorolac 10 mg PO TID PRN 5 days lamotrigine 100 mg PO DAILY prednisone 60 mg (3 x 20 mg) PO DAILY 5 days Tobacco use date assessed: 04/17/24 Dental Screening Dental Screen Date: 04/17/24 Did you have a dental visit in the last 12 months?: Yes Did you have a dental problem in the last 6 months where you did not have access to dental care?: No Was dental information given to patient?: Patient has dentist HPI HPI Comments History of Present Illness Details This is a 39-year-old female with severe major depression, PTSD and anxiety that comes today complaining of bilateral shoulder pain secondary to osteoarthritis with limited abduction and extension that started few months ago. Denies any previous trauma. She also has polyarthralgia and will benefit from seeing Rheumatology. For her shoulders I will refer her to ortho. She will also receive physical therapy. Depression, PTSD and anxiety are stable with medications and are follow by counseling and psychiatry. [facility] Medical History (Updated 04/17/24 @ 10:46 by Vanessa Cummins MD) Dermoid cyst Scoliosis Mitral and aortic insufficiency Asthma, exercise induced GERD (gastroesophageal reflux disease) History of behavioral and mental health problems Encounter for behavioral health screening Surgical History History of elbow surgery H/O shoulder surgery History of surgery on lower extremity H/O section Family History Mother Mental health disorder Father History of quadruple bypass Social History (Updated 04/17/24 @ 08:41 by Vanessa Cummins MD) Household Members: Significant Other, Family and Children Housing: House Alcohol intake: current Alcohol intake frequency: holidays/special occasions only Patient Tobacco Use Status: Never used Tobacco e-Cigarette/Vaping Use: Never Used Second Hand Smoke Exposure: No service: No Current occupational status: disabled Cognitive needs: No Hearing needs: Yes Vision needs: Yes Questionnaire Thrive Questionnaire Date Thrive assessed: 06/19/23 ERIC-7 AMB Questionnaire ERIC-7 Date ERIC - 7 assessed: 06/19/23 Source: Developed by Drs. Miller Medrano, Aisha Oswald, Maximino La and colleagues, with an educational nelson from [employer]. Review of Systems Const All systems reviewed & are unremarkable except as noted in HPI and below Card Denies chest pain at rest, Denies chest pain with activity, Denies edema, Denies irregular heart rhythm, Denies claudication, Denies dyspnea, Denies dyspnea on exertion, Denies orthopnea, Denies paroxysmal nocturnal dyspnea and Denies slow heart rate Resp Denies cough, Denies dyspnea and Denies dyspnea on exertion GI Denies abdominal pain, Denies change in bowel habits, Denies excessive flatus, Denies nausea and Denies vomiting Denies urinary incontinence, Denies urinary hesitancy and Denies urinary urgency Musc Reports back pain, Denies atrophy, Denies deformity, Reports arthralgias and Reports limited range of motion Skin/Breast Denies bleeding lesions, Denies changing lesions and Denies rash Physical exam (Primary Care) Vital Signs: Last Vital Signs BP 112/70 04/17/24 08:23 BMI result Body Mass Index 31.2 BMI Assessment/Plan discussion: High BMI High, discussed plan: lifestyle, weight reduction, dietary and physical activity Tobacco/Smoking Status: Tobacco use Status Tobacco use date assessed 04/17/24 04/17/24 08:28 Patient Tobacco Use Status Never used Tobacco 04/17/24 08:41 e-Cigarette/Vaping Use Never Used 04/17/24 08:41 Thrive Assessment: Date of Thrive Assessment Date Thrive assessed 06/19/23 04/17/24 08:28 Resp Effort & Inspection: normal respiratory effort Auscultation: clear to auscultation bilaterally Cardio Jugular venous distension: no JVD Rate: regular rate Rhythm: regular rhythm Heart sounds: S1 normal heart sound present and S2 normal heart sound present Extrem Right upper extremity: shoulder/upper arm Details: abnormal ROM Details: pain with active ROM Details: in ABduction and in extension Left upper extremity: shoulder/upper arm Details: abnormal ROM Details: pain with active ROM Details: in ABduction and in extension Assessment and Plan Assessment & Plan (1) Osteoarthritis, shoulder: Code(s): M19.019 - Primary osteoarthritis, unspecified shoulder Qualifiers: Osteoarthritis type: primary Laterality: bilateral Qualified Code(s): M19.011 - Primary osteoarthritis, right shoulder; M19.012 - Primary osteoarthritis, left shoulder Plan: Start physical therapy. Follow-up with ortho. (2) Polyarthralgia: Code(s): M25.50 - Pain in unspecified joint Plan: Referred to rheumatology. (3) Major depress dis, severe: Code(s): F32.2 - Major depressive disorder, single episode, severe without psychotic features Plan: Continue SSRIs. Follow-up with counseling and psychiatry. (4) PTSD (post-traumatic stress disorder): Code(s): F43.10 - Post-traumatic stress disorder, unspecified Plan: Continue Lamictal. Follow-up with psychiatry. (5) Generalized anxiety disorder: Code(s): F41.1 - Generalized anxiety disorder Plan: Continue buspirone. Follow-up with psychiatry. Orders: Orders IRON PROFILE Today D64.9 - Anemia, unspecified Comprehensive Stanton. Panel Fast Today M25.50 - Pain in unspecified joint Lipid Panel Today E66.9 - Obesity, unspecified, Z68.31 - Body mass index [BMI] 31.0-31.9, adult PT Evaluation and Treatment Today M19.019 - Primary osteoarthritis, unspecified shoulder Complete Blood Count Auto Diff Today D64.9 - Anemia, unspecified Referrals Orthopedics Referral M19.019 - Primary osteoarthritis, unspecified shoulder Rheumatology Referral M25.50 - Pain in unspecified joint Medications: Discontinued prednisone Discontinued Reason: Patient Completed Course 60 mg (3 x 20 mg) PO DAILY 5 days 15 tabs 0RF Coding Level of Care Code Est Pt Level 4 (75384) Complex EM visit Add On G2211 Diagnoses Primary osteoarthritis of both shoulders M19.011; M19.012 Osteoarthritis type: primary Laterality: bilateral Polyarthralgia M25.50 Major depress dis, severe F32.2 PTSD (post-traumatic stress disorder) F43.10 Generalized anxiety disorder F41.1 Time Spent (min) 22
[2024-04-17 08:23] VITALS: BP 112/70; BMI 31.2
== END 2024-04-17 08:47 | disposition home or self-care (01) ==
PROVIDERS: PCP Internal Medicine; Visit Provider Internal Medicine
DX: M19.011 Primary osteoarthritis, right shoulder (principal); M19.012 Primary osteoarthritis, left shoulder; M25.50 Pain in unspecified joint; F32.2 Major depressive disorder, single episode, severe without psychotic features; F43.10 Post-traumatic stress disorder, unspecified; F41.1 Generalized anxiety disorder
CPT/HCPCS: 99214; G2211

== ENCOUNTER 2024-05-12 12:53 | Outpatient (AMB) | payer OTHER, SELFPAY ==
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
== END 2024-05-12 13:44 | disposition home or self-care (01) ==
PROVIDERS: PCP Internal Medicine; Visit Provider Orthopaedic Surgery
DX: M25.511 Pain in right shoulder (principal); M25.512 Pain in left shoulder; F41.1 Generalized anxiety disorder
CPT/HCPCS: 99204; G2211

== ENCOUNTER → 2024-05-12 12:53 | Outpatient (BNVA) | payer OTHER, SELFPAY | PROVIDERS: PCP Internal Medicine; Visit Provider Orthopaedic Surgery | DX: M25.511 Pain in right shoulder (principal); M25.512 Pain in left shoulder | CPT/HCPCS: 99202 ==

== ENCOUNTER 2024-05-26 11:00 | Outpatient (AMB) | payer OTHER, SELFPAY ==
--- NOTE | 2024-05-26 11:02 | A.OFFVIS_ITS ---
Vital Signs 05/26/24 11:08 Height 5 ft Weight 158 lb 1.143 oz BMI 30.9 BP 115/70 Blood Pressure Location Lt brachial Position Sitting Pulse 94 Pulse Source Pulse Oximeter Pulse Oximetry (%) 99 Oxygen Delivery Method Room Air Intake Visit Reasons: referred by ED/OA/LVM Intake Note: Patient presents for OA. Feel pain on both shoulders and both knees. Been feeling this pain since the beginning of February. Aleve is short term relieve. Ibuprofen doesn't work. Allergies oxycodone [From Percocet] Allergy (Mild, Verified 05/26/24 11:07) ITCH/HIVES BLUE CHEESE Allergy (Unknown, Uncoded 04/17/24 08:35) HIVES Percocet Allergy (Unknown, Uncoded 04/17/24 08:35) hives Medication List - Last Reconciled 05/26/24 by Clay Leigh MD albuterol sulfate 90 mcg/actuation (ProAir HFA) 2 puffs inhalation Q4-6H PRN buspirone 30 mg PO BID clonidine HCl Take 1/2 tab in the am and 1 tab in the evening. fluoxetine (Prozac) 40 mg PO DAILY hydroxyzine pamoate 25 - 50 mg PO BID PRN lamotrigine 100 mg PO DAILY HPI Comments Details: This is a 39-year-old female who presents for evaluation of multiple joint pain. The condition started January with abrupt onset of bilateral knee pain and shoulder pain, she could not lift her arms above her shoulders, symptoms are generally worse in the morning and they take a few hours to improve. Went to the emergency room towards the end of February she was found to have significantly elevated inflammatory markers, PMR was suspected and she was prescribed prednisone 60 mg daily which provided dramatic relief. Had another refill from her PCP. Currently she has been taking a leave which only provides little relief. Denies any other associated symptoms such as skin rashes, weight loss, headaches, vision changes. She denies any history of DVT/PE. Patient had 5 pregnancies in total, 4 miscarriages and 1 live . She is unaware of any family history of an autoimmune rheumatic diseases. [facility] Medical History Dermoid cyst Scoliosis Mitral and aortic insufficiency Asthma, exercise induced GERD (gastroesophageal reflux disease) History of behavioral and mental health problems Encounter for behavioral health screening Surgical History History of elbow surgery H/O shoulder surgery History of surgery on lower extremity H/O section Family History Mother Mental health disorder Father History of quadruple bypass Social History Household Members: Significant Other, Family and Children Housing: House Alcohol intake: current Alcohol intake frequency: holidays/special occasions only Patient Tobacco Use Status: Never used Tobacco e-Cigarette/Vaping Use: Never Used Second Hand Smoke Exposure: No service: No Current occupational status: disabled Cognitive needs: No Hearing needs: Yes Vision needs: Yes Female Reproductive History Menstrual Total pregnancies: 5 Full term: 1 Ab spontaneous: 4 Review of Systems Musc Reports arthralgias, Denies joint swelling, Reports limited range of motion and Reports stiffness Physical Exam Vital Signs: Last Vital Signs Pulse 94 05/26/24 11:08 BP 115/70 05/26/24 11:08 Pulse Ox 99 05/26/24 11:08 Oxygen Delivery Method Room Air 05/26/24 11:08 BMI result Body Mass Index 30.9 Const General: cooperative, healthy appearing and comfortable Nutritional Appearance: obese Orientation/consciousness: patient oriented x3 Limitations: no limitations HEENT Head: Yes normocephalic and Yes atraumatic Mouth: moist mucous membranes Resp Effort & Inspection: normal respiratory effort and able to speak in complete sentences Cardio Rate: regular rate Skin General skin exam: no rashes or lesions noted Neuro General: patient oriented x3 Extrem Other: Right wrist tenderness to palpation without swelling Right 5th MCP mild swelling and tenderness Third PIP tenderness Left 3rd MCP tenderness Significantly limited range of motion of both shoulders Left knee warmth and pain with any range of motion Mild right knee warmth and pain with full extension No ankle swelling or tenderness bilaterally No MTP tenderness bilaterally Negative MTP squeeze test bilaterally Normal nailfold capillaroscopy Assessment & Plan Assessment & Plan (1) Polyarthralgia: Code(s): M25.50 - Pain in unspecified joint Category: Medical Plan: This is a 39-year-old female who presents for evaluation of abrupt onset of bilateral shoulder pain, stiffness, bilateral knee pain. On exam she has multiple tender joints, swollen left knee, inflammatory markers elevated, dramatic response to prednisone. clinical picture consistent with new onset inflammatory arthritis. Check labs and x-rays Start prednisone 15 mg daily. Continue Aleve Follow-up in 4 weeks Plan I spent 45 minutes reviewing patient's chart, evaluating patient, ordering diagnostic workup, counseling patient and documenting in the chart Orders: Orders Anti DNA DS Antibody Today M32.9 - Systemic lupus erythematosus, unspecified Complement C4 Today M32.9 - Systemic lupus erythematosus, unspecified C Reactive Protein Today M32.9 - Systemic lupus erythematosus, unspecified Protein Creatinine Ratio, Ur Today M32.9 - Systemic lupus erythematosus, unspecified Sjogren's Antibodies Today M32.9 - Systemic lupus erythematosus, unspecified Complete Blood Count Auto Diff Today M32.9 - Systemic lupus erythematosus, unspecified Comprehensive Met. Panel Today M32.9 - Systemic lupus erythematosus, unspecified Lyme IgG/IgM w/reflex to WB Today M25.50 - Pain in unspecified joint XR hand wrist LT Today M25.50 - Pain in unspecified joint XR knee RT 3V Today M25.50 - Pain in unspecified joint XR knee standing BI Today M25.50 - Pain in unspecified joint XR foot LT min 3V Today M25.50 - Pain in unspecified joint XR foot RT min 3V Today M25.50 - Pain in unspecified joint Histone Antibody Today L93.2 - Other local lupus erythematosus, T50.905A - Adverse effect of unspecified drugs, medicaments and biological substances, initial encounter GREG Reflex Titer and Pattern Today M32.9 - Systemic lupus erythematosus, unspecified Anti Extractable Nuclear Ag Today M32.9 - Systemic lupus erythematosus, unspecified Complement C3 Today M32.9 - Systemic lupus erythematosus, unspecified DNA Double Stranded-Crithidia Today M32.9 - Systemic lupus erythematosus, unspecified Erythrocyte Sedimentation Rate Today M32.9 - Systemic lupus erythematosus, unspecified UA w Microscopic Today M32.9 - Systemic lupus erythematosus, unspecified Hepatitis A,B,C Profile Today Z11.59 - Encounter for screening for other viral diseases T Spot TB Today Z11.7 - Encounter for testing for latent tuberculosis infection Immunofixation Pnl, Serum Today M32.9 - Systemic lupus erythematosus, unspec ified Protein Electrophoresis, Serum Today M32.9 - Systemic lupus erythematosus, unspecified Rheumatoid Factor Today M25.50 - Pain in unspecified joint Cyclic Citrullinated Peptide Today M25.50 - Pain in unspecified joint XR hand wrist RT Today M25.50 - Pain in unspecified joint XR knee LT 3V Today M25.50 - Pain in unspecified joint XR ankle LT min 3V Today M25.50 - Pain in unspecified joint XR ankle RT min 3V Today M25.50 - Pain in unspecified joint HLA B27 Today M45.9 - Ankylosing spondylitis of unspecified sites in spine Medications: New prednisone 15 mg (3 x 5 mg) PO DAILY 90 tabs 0RF Coding Level of Care Code New Pt Level 4 (26483) Diagnoses Polyarthralgia M25.50
[2024-05-26 11:08] VITALS: BP 115/70; PULSE 94; O2SAT 99; BMI 30.9
== END 2024-05-26 11:34 | disposition home or self-care (01) ==
PROVIDERS: PCP Internal Medicine; Visit Provider Student in an Organized Health Care Education/Training Program
DX: M25.50 Pain in unspecified joint (principal)
CPT/HCPCS: 99204

== ENCOUNTER → 2024-05-26 11:00 | Outpatient (BNVA) | payer OTHER, SELFPAY | PROVIDERS: PCP Internal Medicine; Visit Provider Student in an Organized Health Care Education/Training Program | DX: M25.50 Pain in unspecified joint (principal) | CPT/HCPCS: 99202 ==

== ENCOUNTER 2024-05-26 11:40 | Outpatient (REF) | payer OTHER, SELFPAY ==
--- NOTE | ~2024-05-26 | XR_ITS ---
EXAMINATION: XR HAND/WRIST, RIGHT CLINICAL INFORMATION: Pain COMPARISON: None available. TECHNIQUE: PA, lateral, scaphoid and oblique views of the right hand and wrist. FINDINGS: No acute cortical disruption or malalignment. No lytic or blastic lesions. No metallic or radiopaque foreign body. No subcutaneous emphysema. XR/XR hand wrist RT IMPRESSION: No acute fracture or dislocation Electronically signed by: Manolo De La Cruz MD 06/24/2024 09:27 AM [facility]
--- NOTE | ~2024-05-26 | XR_ITS ---
EXAMINATION: XR KNEE, LEFT CLINICAL INFORMATION: Pain. COMPARISON: None available. TECHNIQUE: AP lateral and sunrise views of the left knee. FINDINGS: Overlapping of the medial and lateral compartments of IV femoral condyles and tibial plateau. No acute cortical disruption or malalignment. No joint effusion, suprapatellar bursa. No lytic or blastic lesions. There is an AP view which includes the right knee demonstrated old traumatic deformity of the distal diaphysis of the right femur and probable bone infarct in the distal diaphysis. XR/XR knee LT 4V IMPRESSION: No acute fracture or dislocation. Electronically signed by: Manolo De La Cruz MD 06/24/2024 09:23 AM [facility]
--- NOTE | ~2024-05-26 | XR_ITS ---
EXAMINATION: XR FOOT, RIGHT CLINICAL INFORMATION: Pain. COMPARISON: X-ray dated April 26, 2012 TECHNIQUE: AP, lateral, and oblique views of the right foot. FINDINGS: No acute cortical disruption or malalignment. No lytic or blastic lesions. No joint effusion. XR/XR foot RT min 3V IMPRESSION: No acute fracture or dislocation. Electronically signed by: Manolo De La Cruz MD 06/24/2024 09:25 AM [facility]
--- NOTE | ~2024-05-26 | XR_ITS ---
EXAMINATION: XR KNEE, RIGHT CLINICAL INFORMATION: Pain. COMPARISON: None available. TECHNIQUE: Four views of the right knee. FINDINGS: No acute cortical disruption or malalignment. Limited frontal view overlapping the medial and lateral compartments. Sclerotic marginated lytic lesion measures 5 mm in the distal diaphysis of the femur, nonspecific. No joint effusion, suprapatellar bursa. XR/XR knee RT 4V IMPRESSION: No acute fracture or dislocation. Unable to elevate at the medial or the lateral compartments. Electronically signed by: Manolo De La Cruz MD 06/24/2024 09:20 AM [facility]
--- NOTE | ~2024-05-26 | XR_ITS ---
EXAMINATION: XR HAND/WRIST, LEFT CLINICAL INFORMATION: Pain COMPARISON: None available. TECHNIQUE: PA, lateral, scaphoid and oblique views of the left hand and wrist. FINDINGS: No acute cortical disruption or malalignment. No lytic or blastic lesions. No subcutaneous emphysema. No metallic or radiopaque foreign body. XR/XR hand wrist LT IMPRESSION: No acute fracture or dislocation Electronically signed by: Manolo De La Cruz MD 06/24/2024 09:27 AM [facility]
--- NOTE | ~2024-05-26 | XR_ITS ---
EXAMINATION: XR ANKLE, LEFT CLINICAL INFORMATION: Pain COMPARISON: None available. TECHNIQUE: AP, lateral, and mortise views of the left ankle. FINDINGS: Periosteal bone reaction distal diaphysis of the tibia and fibula. No acute cortical disruption or malalignment and the left ankle. No joint effusion. XR/XR ankle LT min 3V IMPRESSION: No acute fracture or dislocation, left ankle. Probable old traumatic deformities distal diaphysis of the tibia and fibula. Electronically signed by: Manolo De La Cruz MD 06/24/2024 09:24 AM [facility]
--- NOTE | ~2024-05-26 | XR_ITS ---
EXAMINATION: XR FOOT, LEFT CLINICAL INFORMATION: Pain. COMPARISON: None available. TECHNIQUE: AP, lateral, and oblique views of the left foot. FINDINGS: No acute cortical disruption or malalignment. No lytic or blastic lesions. No joint effusion. XR/XR foot LT min 3V IMPRESSION: No acute fracture or dislocation. Electronically signed by: Manolo De La Cruz MD 06/24/2024 09:26 AM [facility]
--- NOTE | ~2024-05-26 | XR_ITS ---
EXAMINATION: XR ANKLE, RIGHT CLINICAL INFORMATION: Pain. COMPARISON: None available. TECHNIQUE: AP, and lateral, views of the right ankle. FINDINGS: Submitted for interpretation on June 24, 2024. No acute cortical disruption or malalignment. No lytic or blastic lesions. XR/XR ankle RT min 3V IMPRESSION: No acute fracture or dislocation. Electronically signed by: Manolo De La Cruz MD 06/24/2024 09:18 AM EST
[2024-05-26 13:22] LABS: MANUAL DIFF FLAG NO
[2024-05-26 13:27] LABS: Basophils Percent Auto 0.3 % (0-2); Eosinophils Absolute Auto 0.1 X10*3/uL (0.0-0.4); Eosinophils Percent Auto 1.4 % (0-4); Hematocrit 36.5 % (37.0-47.0); Hemoglobin 11.8 g/dl (12.0-16.0); Imm Gran Abs Auto 0.01 X10*3/uL (0.00-0.03); Imm Gran Pct Auto 0.1 % (0.0-0.4); Lymphocytes Absolute Auto 2.5 X10*3/uL (1.2-4.9); Lymphocytes Percent Auto 25.9 % (20-40); Mean Corpuscular HGB Conc 32.3 g/dl (31.0-35.0); Mean Corpuscular Hemoglobin 27.5 pg (27.0-33.0); Mean Corpuscular Volume 85.1 fL (80.0-98.0); Mean Platelet Volume 9.8 fL (9.4-12.3); Monocytes Absolute Auto 0.4 X10*3/uL (0.1-1.2); Monocytes Percent Auto 4.4 % (2-11); Neutrophils Absolute Auto 6.4 x10*3/uL (2.0-8.3); Neutrophils Percent Auto 67.9 % (45-73); Platelet Count 370 X10*3/uL (160-400); Red Blood Count 4.29 X10*6/uL (4.20-5.50); Red Cell Distribution Width 13.7 % (11.0-16.0); White Blood Count 9.5 X10*3/uL (4.8-10.8)
[2024-05-26 13:57] LABS: Alanine Aminotransferase 16 U/L (0-31); Albumin Level 3.7 g/dL (3.5-5.0); Alkaline Phosphatase 81 U/L (39-117); Anion Gap 10 (12-20); Aspartate Amino Transferase 17 U/L (5-31); Bilirubin Total 0.3 mg/dL (0.0-1.0); Blood Urea Nitrogen 14 mg/dL (9-16); C Reactive Protein 1.92 mg/dL (< or = 0.50); Calcium 8.8 mg/dL (8.4-10.2); Carbon Dioxide 25 mmol/L (22-29); Chloride 109 mmol/L (96-108); Estimated Glomerular Filt Rate > 60; Glucose Random 86 mg/dL (60-115); Potassium 3.7 mmol/L (3.3-5.1); Sodium 140 mmol/L (135-145)
[2024-05-26 13:59] LABS: Erythrocyte Sedimentation Rate 33 MM/HR (0-20)
[2024-05-28 07:54] LABS: Anti DNA DS Antibody <1 IU/mL; Antibody to SS-A Antigen <1.0 NEG AI (<1.0 NEG); Antibody to SS-B Antigen <1.0 NEG AI (<1.0 NEG); SM/Ribonucleoprotein Ab <1.0 NEG AI (<1.0 NEG); Smith Protein <1.0 NEG AI (<1.0 NEG)
[2024-05-28 18:08] LABS: Complement C3 54 mg/dL (83-193)
[2024-05-29 13:48] LABS: Anti Nuclear Antibody Screen POSITIVE (NEGATIVE); Anti Nuclear Antibody Titer 1:40 titer
[2024-05-30 05:08] LABS: DNAds, Crithidia Antibody Negative (Negative)
== END 2024-05-26 11:41 | disposition home or self-care (01) ==
LOC: HO.10HDL 11:40
PROVIDERS: Visit Provider Student in an Organized Health Care Education/Training Program
DX: M25.50 Pain in unspecified joint (principal); M32.9 Systemic lupus erythematosus, unspecified
CPT/HCPCS: 36415; 73110; 73130; 73564; 73610; 73630; 80053; 85025; 85652; 86038; 86039; 86140; 86160; 86225; 86235; 86255

== ENCOUNTER → 2024-05-26 12:10 | Outpatient (BNV) | payer OTHER, SELFPAY | PROVIDERS: Visit Provider Radiology Diagnostic Radiology | DX: M25.561 Pain in right knee (principal); M25.562 Pain in left knee; M25.571 Pain in right ankle and joints of right foot; M25.572 Pain in left ankle and joints of left foot; M79.671 Pain in right foot; M79.672 Pain in left foot | CPT/HCPCS: 73564; 73610; 73630 ==

== ENCOUNTER 2024-06-23 08:00 | Outpatient (AMB) | payer OTHER, SELFPAY ==
--- NOTE | 2024-06-23 08:06 | MHC.PC.OV ---
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 fluoxetine (Prozac) 40 mg PO DAILY hydroxyzine pamoate 25 - 50 mg PO BID PRN lamotrigine 100 mg PO DAILY prednisone 15 mg (3 x 5 mg) PO DAILY Tobacco use date assessed: 04/17/24 Dental Screening Dental Screen Date: 04/17/24 HPI HPI Comments History of Present Illness Details This is a 39-year-old female with mild major depression that comes for her physical exam. Depression follow by Psychiatry and has been stable with medications. Mammogram done 2022 and I will order another mammogram. Last Pap smear was less than 3 years ago and was normal as per patient. No acute complaints. Declines flu vaccine today. [facility] Medical History (Updated 06/23/24 @ 08:29 by Vanessa Cummins MD) Major depress dis, severe Scoliosis Mitral and aortic insufficiency Asthma, exercise induced GERD (gastroesophageal reflux disease) History of behavioral and mental health problems Encounter for behavioral health screening Surgical History (Updated 06/23/24 @ 08:21 by Vanessa Cummins MD) Dermoid cyst S/P removal of ovarian cyst History of elbow surgery H/O shoulder surgery History of surgery on lower extremity H/O section Family History Mother Mental health disorder Father History of quadruple bypass Social History (Updated 06/23/24 @ 08:22 by Vanessa Cummins MD) Household Members: Significant Other, Family and Children Housing: House Alcohol intake: current Alcohol intake frequency: holidays/special occasions only Alcohol type: hard liquor Patient Tobacco Use Status: Never used Tobacco e-Cigarette/Vaping Use: Never Used Second Hand Smoke Exposure: No service: No Current occupational status: disabled Cognitive needs: No Hearing needs: Yes Vision needs: Yes Questionnaire PHQ-9 Over the last 2 weeks, how often have you been bothered by any of the following problems? 1. Little interest or pleasure in doing things: not at all 2. Feeling down, depressed, or hopeless: not at all 3. Trouble falling or staying asleep, or sleeping too much: not at all 4. Feeling tired or having little energy: not at all 5. Poor appetite or overeating: not at all 6. Feeling bad about yourself - or that you are a failure or have let yourself or your family down: not at all 7. Trouble concentrating on things, such as reading the newspaper or watching television: several days 8. Moving or speaking so slowly that other people could have noticed. Or the opposite - being so fidgety or restless that you have been moving around a lot more than usual: several days 9. Thoughts that you would be better off or of hurting yourself in some way: not at all Total score: 2 Depression Screening Interpretation: Positive Depression Screening Follow-up: Existing condition, In treatment, Community Mental Health Worker F/U and Follow-up Visit Requested Depression Screening Done: Yes 59053 - PHQ-9 Billing: Yes Source: Developed by Drs. Miller Medrano, Aisha Oswald, Maximino La and colleagues, with an educational nelson from [employer]. Thrive Questionnaire Date Thrive assessed: 06/23/24 I am a: Patient What is your living situation today?: I have a steady place to live Within the past 12 months, did the food you bought not last and you didn't have the money to get more?: Sometimes True Within the past 12 months, did you worry whether your food would run out before you got money to buy more?: Sometimes True Do you have trouble paying for medicines?: No Do you have trouble getting transportation to medical appointments?: No Do you have trouble paying your heating and electricity bill?: No Do you have trouble taking care of your child, family member or friend?: No Do you have trouble with day-to-day activities such as bathing, preparing meals, shopping, managing finances, etc.?: No Are you currently unemployed and looking for a job?: No Are you interested in more education?: No Please select the resources that you would like help with: None Currently or been in a relationship where the following occur: No concerns reported THRIVE Score: 2 AUDIT C Alcohol Use Questionnaire (AUDIT-C) 1. How often do you have a drink containing alcohol?: Monthly or less 2. How many drinks containing alcohol do you have on a typical day when you are drinking?: 1 or 2 3. How often do you have six or more drinks on one occasion?: Never Total Score: 1 ERIC-7 AMB Questionnaire ERIC-7 Date ERIC - 7 assessed: 06/23/24 Feeling nervous, anxious, or on edge: 1 = Several days Not being able to stop or control worryin = Several days Worrying too much about different things: 1 = Several days Trouble relaxin = Several days Being so restless that it is hard to sit still: 0 = Not at all Becoming easily annoyed or irritable: 1 = Several days Feeling afraid as if something awful might happen: 0 = Not at all Total ERIC-7 score (0-4 normal; 5-9 mild; 10-14 moderate; 15-21 severe): 5 Source: Developed by Drs. Miller Medrano, Aisha Oswald, Maximino La and colleagues, with an educational nelson from [employer]. ERIC-7 Assessment Billing ERIC-7 Assessment Tool: ERIC-7 Assessment 39423 Review of Systems Const All systems reviewed & are unremarkable except as noted in HPI and below Card Denies chest pain at rest, Denies chest pain with activity, Denies edema, Denies irregular heart rhythm, Denies claudication, Denies dyspnea, Denies dyspnea on exertion, Denies orthopnea, Denies paroxysmal nocturnal dyspnea and Denies slow heart rate Resp Denies cough, Denies dyspnea and Denies dyspnea on exertion GI Denies abdominal pain, Denies change in bowel habits, Denies excessive flatus, Denies nausea and Denies vomiting Denies urinary incontinence, Denies urinary hesitancy and Denies urinary urgency Musc Denies abnormal gait, Denies atrophy, Denies deformity and Denies limited range of motion Skin/Breast Denies bleeding lesions, Denies changing lesions and Denies rash Neuro Denies abnormal gait and Denies lack of coordination Physical exam (Primary Care) Vital Signs: Last Vital Signs BP 136/80 06/23/24 08:07 BMI result Body Mass Index 30.9 Tobacco/Smoking Status: Tobacco use Status Tobacco use date assessed 04/17/24 06/23/24 08:09 Patient Tobacco Use Status Never used Tobacco 06/23/24 08:22 e-Cigarette/Vaping Use Never Used 06/23/24 08:22 PHQ-9: PHQ-9 Score PHQ-9: Total score 2 06/23/24 08:31 Depression Screening Interpretation: Positive Depression Screening Follow-up: Existing condition, In treatment, Community Mental Health Worker F/U and Follow-up Visit Requested Thrive Assessment: Date of Thrive Assessment Date Thrive assessed 06/23/24 06/23/24 08:09 Currently or been in a relationship where the following occur: No concerns reported [facility] Head: Yes normal to inspection, Yes normocephalic and Yes atraumatic Ears: external ears normal Eyes General: appearance normal, both eyes and all related structures Eyelids: Yes eyelids normal Conjunctivae: conjunctivae normal Neck Neck: Yes normal visual inspection and Yes supple Resp Effort & Inspection: normal respiratory effort Auscultation: clear to auscultation bilaterally Cardio Jugular venous distension: no JVD Rate: regular rate Rhythm: regular rhythm Heart sounds: S1 normal heart sound present and S2 normal heart sound present GI Inspection: Yes normal to inspection Palpation (GI): Soft to palpation and nontender Auscultation: normal bowel sounds Skin General skin exam: no rashes or lesions noted Neuro General: no focal motor deficits Extrem General: Yes full ROM Psych Appearance: grossly normal Office Procedures Flu Questionnaire Does the patient have a severe egg allergy?: No Immunizations Fluarix Triv [id number] (PF) 45 mcg (15 mcg x 3)/0.5 mL IM syringe Performing Provider: Vanessa Cummins MD [facility] [place] [facility] Documented (not given) by: MANJEET Whittaker on 06/23/24 08:35 Reason Not Given: Patient Refused Coding Level of Care Code Est Pt Prev Care 40-64y(10927) Diagnoses Physical exam Z00.00 Mild major depression F32.0 Additional Codes ERIC-7 Assessment Billing - ERIC-7 Assessment Tool: ERIC-7 Assessment 31660 ([id number]) Time Spent (min) 30 Assessment & Plan Assessment & Plan (1) Physical exam: Code(s): Z00.00 - Encounter for general adult medical examination without abnormal findings Category: Medical Plan: Repeat in a year. (2) Mild major depression: Comment: Follow by psychiatry Code(s): F32.0 - Major depressive disorder, single episode, mild Category: Medical Plan: Continue SSRIs. Follow-up with psychiatry. Orders: Orders Lipid Panel Today Z00.00 - Encounter for general adult medical examination without abnormal findings MM tomosynthesis screening BI Today Z12.31 - Encounter for screening mammogram for malignant neoplasm of breast
[2024-06-23 08:07] VITALS: BP 136/80; BMI 30.9
== END 2024-06-23 10:51 | disposition home or self-care (01) ==
LOC: HO.HMCH 08:01
PROVIDERS: PCP Internal Medicine; Visit Provider Internal Medicine
DX: Z00.00 Encounter for general adult medical examination without abnormal findings (principal); F32.0 Major depressive disorder, single episode, mild; Z23 Encounter for immunization

== ENCOUNTER → 2024-06-23 08:00 | Outpatient (BNVA) | payer OTHER, SELFPAY | PROVIDERS: PCP Internal Medicine; Visit Provider Internal Medicine | DX: Z00.00 Encounter for general adult medical examination without abnormal findings (principal); F32.0 Major depressive disorder, single episode, mild; J45.909 Unspecified asthma, uncomplicated | CPT/HCPCS: 90471; 96127; 99396 ==

== ENCOUNTER 2024-06-27 09:53 | Outpatient (AMB) | payer OTHER, SELFPAY ==
--- NOTE | 2024-06-27 09:56 | A.OFFVIS_ITS ---
Vital Signs 06/27/24 09:59 Height 5 ft Weight 157 lb 3.033 oz BMI 30.7 BP 112/70 Blood Pressure Location Lt brachial Position Sitting Pulse 90 Pulse Source Pulse Oximeter Pulse Oximetry (%) 98 Oxygen Delivery Method Room Air Intake Visit Reasons: RA/lm Intake Note: Patient presents for RA. Allergies oxycodone [From Percocet] Allergy (Mild, Verified 06/27/24 09:59) ITCH/HIVES BLUE CHEESE Allergy (Unknown, Uncoded 06/23/24 08:17) HIVES Percocet Allergy (Unknown, Uncoded 06/23/24 08:17) hives Medication List - Last Reconciled 06/27/24 by Clay Leigh MD albuterol sulfate 90 mcg/actuation (ProAir HFA) 2 puffs inhalation Q4-6H PRN buspirone 30 mg PO BID clonidine HCl Take 1/2 tab in the am and 1 tab in the evening. fluoxetine (Prozac) 40 mg PO DAILY hydroxychloroquine Take 1 tab twice a day x5 days a week and 1 tab daily x2 days a hydroxyzine pamoate 25 - 50 mg PO BID PRN lamotrigine 100 mg PO DAILY prednisone Take 2 tabs daily for 1 month then remain on 1 tab daily HPI Comments Details: Patient returns for follow-up. She has been taking prednisone as prescribed. She is doing much better overall. Initial history: This is a 39-year-old female who presents for evaluation of multiple joint pain. The condition started January with abrupt onset of bilateral knee pain and shoulder pain, she could not lift her arms above her shoulders, symptoms are generally worse in the morning and they take a few hours to impr ove. Went to the emergency room towards the end of February she was found to have significantly elevated inflammatory markers, PMR was suspected and she was prescribed prednisone 60 mg daily which provided dramatic relief. Had another refill from her PCP. Currently she has been taking a leave which only provides little relief. Denies any other associated symptoms such as skin rashes, weight loss, headaches, vision changes. She denies any history of DVT/PE. Patient had 5 pregnancies in total, 4 miscarriages and 1 live . She is unaware of any family history of an autoimmune rheumatic diseases. COUNTS INCLUDE 234 BEDS AT THE [facility] Medical History Major depress dis, severe Scoliosis Mitral and aortic insufficiency Asthma, exercise induced GERD (gastroesophageal reflux disease) History of behavioral and mental health problems Encounter for behavioral health screening Surgical History Dermoid cyst S/P removal of ovarian cyst History of elbow surgery H/O shoulder surgery History of surgery on lower extremity H/O section Family History Mother Mental health disorder Father History of quadruple bypass Social History Household Members: Significant Other, Family and Children Housing: House Alcohol intake: current Alcohol intake frequency: holidays/special occasions only Alcohol type: hard liquor Patient Tobacco Use Status: Never used Tobacco e-Cigarette/Vaping Use: Never Used Second Hand Smoke Exposure: No service: No Current occupational status: disabled Cognitive needs: No Hearing needs: Yes Vision needs: Yes Female Reproductive History Menstrual Total pregnancies: 5 Full term: 1 Ab spontaneous: 4 Review of Systems Musc Reports arthralgias and Denies joint swelling Physical Exam Vital Signs: Last Vital Signs Pulse 90 06/27/24 09:59 BP 112/70 06/27/24 09:59 Pulse Ox 98 06/27/24 09:59 Oxygen Delivery Method Room Air 06/27/24 09:59 BMI result Body Mass Index 30.7 Const General: cooperative, healthy appearing and comfortable Nutritional Appearance: obese Orientation/consciousness: patient oriented x3 Limitations: no limitations HEENT Head: Yes normocephalic and Yes atraumatic Mouth: moist mucous membranes Resp Effort & Inspection: normal respiratory effort and able to speak in complete sentences Cardio Rate: regular rate Skin General skin exam: no rashes or lesions noted Neuro General: patient oriented x3 Extrem Other: No wrist swelling or tenderness to palpation. No wrist pain with full flexion- extension No swelling or tenderness MCPs, PIP is both hands Normal pain-free range of motion of elbows and shoulders today No knee warmth, swelling or pain with range of motion No ankle swelling or tenderness bilaterally today Normal nailfold capillaroscopy Assessment & Plan Assessment & Plan (1) Polyarthralgia: Code(s): M25.50 - Pain in unspecified joint Category: Medical Plan: This is a 39-year-old female who presents for evaluation of abrupt onset of bilateral shoulder pain, stiffness, bilateral knee pain. On initial exam she has multiple tender joints, swollen left knee, inflammatory markers elevated, dramatic response to prednisone. Last visit I order comprehensive serology to better understand her condition. Unfortunately the majority of the labs were not done. Patient needs a DMARD. She states that she would like to get soon. We can not use methotrexate at this time. Discussed risks and benefits of hydroxychloroquine. Patient agreed to proceed. Start hydroxychloroquine 400 mg daily x5 days a week and 200 mg daily x2 days a week Reduce prednisone to 10 mg a day for 1 month then remain on 5 mg daily Complete the remaining labs Labs before next visit in 3 months (2) Long-term use of hydroxychloroquine: Code(s): Z79.899 - Other intermediate designer (current) drug therapy Category: Medical Plan: Discussed risks and benefits of hydroxychloroquine. Discussed risk of retinopathy associated with hydroxychloroquine. Referred patient to industrial trainer Plan I spent 25 minutes reviewing patient's chart, evaluating patient, ordering diagnostic workup, counseling patient and documenting in the chart Orders: Orders Complement C3 3 Months M32.9 - Systemic lupus erythematosus, unspecified C Reactive Protein 3 Months M32.9 - Systemic lupus erythematosus, unspecified Erythrocyte Sedimentation Rate 3 Months M32.9 - Systemic lupus erythematosus, unspecified Protein Creatinine Ratio, Ur Today M32.9 - Systemic lupus erythematosus, unspecified Complete Blood Count Auto Diff 3 Months M32.9 - Systemic lupus erythematosus, unspecified Lupus Anticoagulant Panel Today D68.61 - Antiphospholipid syndrome Complement C3 Today M32.9 - Systemic lupus erythematosus, unspecified Complement C4 3 Months M32.9 - Systemic lupus erythematosus, unspecified UA w Microscopic 3 Months M32.9 - Systemic lupus erythematosus, unspecified Comprehensive Met. Panel 3 Months M32.9 - Systemic lupus erythematosus, unspecified Beta-2 Glycoprotein Antibody Today D68.61 - Antiphospholipid syndrome Cardiolipin Antibodies Today D68.61 - Antiphospholipid syndrome Complement C4 Today M32.9 - Systemic lupus erythematosus, unspecified Referrals Ophthalmology Referral Z79.899 - Other care home (current) drug therapy Medications: New hydroxychloroquine Take 1 tab twice a day x5 days a week and 1 tab daily x2 days a 144 tabs 0RF Changed From prednisone 15 mg (3 x 5 mg) PO DAILY 90 tabs 0RF To prednisone Take 2 tabs daily for 1 month then remain on 1 tab daily 120 tabs 0RF Coding Level of Care Code Est Pt Level 4 (34661) Diagnoses Polyarthralgia M25.50 Long-term use of hydroxychloroquine Z79.899
[2024-06-27 09:59] VITALS: BP 112/70; PULSE 90; O2SAT 98; BMI 30.7
== END 2024-06-27 10:19 | disposition home or self-care (01) ==
PROVIDERS: PCP Internal Medicine; Visit Provider Student in an Organized Health Care Education/Training Program
DX: M25.50 Pain in unspecified joint (principal); Z79.899 Other long term (current) drug therapy
CPT/HCPCS: 99214

== ENCOUNTER 2024-06-27 09:53 | Outpatient (REF) | payer OTHER, SELFPAY ==
[2024-06-27 12:23] LABS: Appearance Urine Cloudy; Color Urine Dark Yellow; Glucose Urine UA Negative (Negative); Leukocyte Esterase Urine Trace (Negative); Nitrite Urine Negative (Negative); PH 5.5 (5.0-9.0); Specific Gravity - Urine 1.025 (1.005-1.025); UMIC TRIGGER UA YES; Urine Blood Negative (Negative); Urine Ketones Trace mg/dL (Negative); Urine Protein Negative (Neg-Trace)
[2024-06-27 12:36] LABS: Bacteria Urine 1+ (None Seen); Hyaline Casts Urine 0-2 /LPF (0-2); RBC Urine 0-2 /HPF (0-2); Squamous Epithelial Cell Urine >20 /HPF (0-2); WBC Urine 0-5 /HPF (0-5)
[2024-06-27 12:54] LABS: Creatinine Urine 355.92 mg/dL; Protein/Creatinine Ratio, Ur 0.04 (<0.2); Total Protein Urine Random 15 mg/dL (<12)
[2024-06-27 12:55] LABS: Rheumatoid Factor < 13.0 IU/mL (<15.0)
[2024-06-28 03:54] LABS: HBS Num1 90.41 mIU/mL (0-7.99); HBsAGNum1 0.34 S/CO (0.00-0.99); Hepatitis A Antibody IgM 0.19 Index (0-0.79); Hepatitis B Core Antibody Nonreactive (Nonreactive); Hepatitis B Surface Antigen Negative (Negative); ~HepC Num1 0.14 S/CO (0.00-0.79); ~Hepatitis A Antibody IgM Nonreactive (Nonreactive); ~Hepatitis B Surface Antibody REACTIVE (Nonreactive); ~Hepatitis C Antibody Nonreactive (Nonreactive)
[2024-06-30 08:33] LABS: Complement C3 128 mg/dL (83-193)
[2024-06-30 12:43] LABS: Prot Elec - Alpha1 0.4 g/dL (0.2-0.3); Prot Elec - Alpha2 0.7 g/dL (0.5-0.9); Prot Elec - Beta 1 0.4 g/dL (0.4-0.6); Prot Elec - Beta 2 0.4 g/dL (0.2-0.5); Prot Elec - Gamma 0.9 g/dL (0.8-1.7); Prot Elec - Total Protein 6.8 g/dL (6.1-8.1)
[2024-06-30 17:59] LABS: Lyme Abs Screen <0.90 index
[2024-06-30 22:04] LABS: Cardiolipin IgG Ab <2.0 GPL-U/mL; Cardiolipin IgM Ab <2.0 MPL-U/mL
[2024-06-30 22:08] LABS: TS Negative Control Passed; TS Panel A 0; TS Panel B 0; TS Positive Control Passed; TSpotTB Negative (Negative)
[2024-06-30 22:28] LABS: IgA 344 mg/dL (47-310); IgG 958 mg/dL (600-1640); IgM 131 mg/dL (50-300)
[2024-07-01 19:48] LABS: Cyclic Citrullinated Peptide <16 UNITS
[2024-07-01 22:17] LABS: PTT (LAC) Screen 29 sec (<=40)
[2024-07-02 20:59] LABS: Histone Antibody 1.6 U (<1.0)
[2024-07-02 23:03] LABS: Beta-2 Glycoprotein IgA <2.0 U/mL (<20.0); Beta-2 Glycoprotein IgG <2.0 U/mL (<20.0); Beta-2 Glycoprotein IgM <2.0 U/mL (<20.0)
[2024-07-03 16:48] LABS: HLA B27 Negative (Negative)
== END 2024-06-27 09:54 | disposition home or self-care (01) ==
LOC: HO.LAB 09:53
PROVIDERS: PCP Internal Medicine; Visit Provider Student in an Organized Health Care Education/Training Program
DX: M32.9 Systemic lupus erythematosus, unspecified (principal); Z11.7 Encounter for testing for latent tuberculosis infection; M25.50 Pain in unspecified joint; M45.9 Ankylosing spondylitis of unspecified sites in spine; D68.61 Antiphospholipid syndrome; Z11.59 Encounter for screening for other viral diseases; T50.905A Adverse effect of unspecified drugs, medicaments and biological substances, initial encounter
CPT/HCPCS: 36415; 81001; 82570; 82784; 83516; 84156; 84165; 85597; 85598; 85613; 85730; 86146; 86147; 86160; 86200; 86334; 86431; 86481; 86617; 86618; 86704; 86706; 86709; 86803; 86812; 87340; 99212

== ENCOUNTER 2024-07-04 12:38 | Emergency (ER) | payer OTHER, SELFPAY ==
[2024-07-04 12:41] VITALS: BP 115/63; BP 129/58; PULSE 117; PULSE 120; RESP 20; TEMP 36.8; O2SAT 100; BMI 30.7
--- NOTE | 2024-07-04 13:09 | ED.GENADULT ---
HPI - General Adult General Chief complaint: Anxiety Stated complaint: palpitations,?anxiety Time Seen by Provider: 07/04/24 13:08 Source: patient and EMS Limitations: no limitations History of Present Illness ED Provider: TAYLOR Pandey HPI narrative: 39-year-old female history of PTSD, major depression, anxiety, mitral and aortic insufficiency, hearing loss, presenting to the emergency department with complaints of pain palpitations and intermittent chest discomfort since this morning around 10 am. Patient reports pain comes and goes and is a sharp pain. She feels she has been feeling anxious since this morning. Denies a/c shortness of breath. Not voicing concerns of SI/HI. No trauma reported. Denies nausea, vomiting, fevers, chills, sob, headache, vision changes, dizziness and weakness. Related Data Home Medications ?Medication ?Instructions ?Recorded ?Confirmed buspirone 30 mg tablet 30 mg PO BID 05/08/23 06/23/24 clonidine HCl 0.1 mg tablet See Rx Instructions .Route .COMPLEX 05/08/23 06/23/24 fluoxetine 40 mg capsule (Prozac) 40 mg PO DAILY 05/08/23 06/23/24 hydroxyzine pamoate 25 mg capsule 25 - 50 mg PO BID PRN anxiety 07/11/23 06/23/24 lamotrigine 100 mg tablet 100 mg PO DAILY 07/11/23 06/23/24 Previous Rx's ?Medication ?Instructions ?Recorded albuterol sulfate 90 mcg/actuation 2 puff inhalation Q4-6H PRN 01/20/24 aerosol inhaler (ProAir HFA) shortness of breath or wheezing #6.7 grams hydroxychloroquine 200 mg tablet See Rx Instructions PO .COMPLEX 06/27/24 #144 tabs prednisone 5 mg tablet See Rx Instructions PO .COMPLEX 06/27/24 #120 tabs Allergies Allergy/AdvReac Type Severity Reaction Status Date / Time oxycodone [From Percocet] Allergy Mild ITCH/HIVES Verified 07/04/24 12:44 BLUE CHEESE Allergy Unknown HIVES Uncoded 07/04/24 12:44 Percocet Allergy Unknown hives Uncoded 07/04/24 12:44 Review of Systems Review of Systems: Yes all other systems are reviewed and are negative PMFSH Past Medical History Attestation statement: The following information was validated with the patient. Source: old records reviewed and nursing notes reviewed Medical History Major depress dis, severe Scoliosis Mitral and aortic insufficiency Asthma, exercise induced GERD (gastroesophageal reflux disease) History of behavioral and mental health problems Encounter for behavioral health screening Surgical History Dermoid cyst S/P removal of ovarian cyst History of elbow surgery H/O shoulder surgery History of surgery on lower extremity H/O section Family History Family History Mother Mental health disorder Father History of quadruple bypass Social History Social History Household Members: Significant Other, Family and Children Housing: House Alcohol intake: current Alcohol intake frequency: holidays/special occasions only Alcohol type: hard liquor Patient Tobacco Use Status: Never used Tobacco Smoked in Last 30 Days: No e-Cigarette/Vaping Use: Never Used Second Hand Smoke Exposure: No Use of substances other than those prescribed or required for medical reasons: No Advance Directives: No Advance Directives Information Provided: No service: No Current occupational status: disabled Cognitive needs: No Hearing needs: Yes Vision needs: Yes Physical Exam ED Vital Signs: Vital Signs - 24 hr 07/04/24 12:41 07/04/24 14:00 Temperature 98.3 F 98.2 F Pulse Rate 117 H 94 Respiratory Rate 20 17 Blood Pressure 129/58 L Pulse Oximetry 100 100 Oxygen Delivery Method Room Air Room Air BMI result Body Mass Index 30.7 vss Appearance: Alert.? Oriented X3.? No acute distress.? Head: Normocephalic, atraumatic, no step-offs or deformities Eyes: Pupils equal, round and reactive to light.? CVS: Normal heart rate and rhythm.? Pulses normal.? Respiratory: No respiratory distress.? Breath sounds normal.? Abdomen: Soft and nontender.? Skin: Skin warm and dry.? Normal skin color.? Normal skin turgor.? Extremities: No lower extremity edema.? No calf ttp. 5/5 strength to bilateral upper and lower extremities Neuro: Oriented X 3.? No motor deficit.? No sensory deficit. CN 2-12 intact Course Reevaluation(s) Reevaluation #1: cbc unremarkable. chemsitry unremarkable. trop negative x 2 ekg non ischemic. Patient feeling bettter NOt SI or HI Educated patient on diagnosis and treatment plan, answered all question, patient verbalizes understanding. At this time patient will be discharged home, advised to return with new or worsening symptoms. Educated on worrisome signs and symptoms and when to return. At this time I feel comfortable discharge home. Time: 16:14 Medications Administered Discontinued Medications Generic Name Dose Route Start Last Admin Trade Name Martha PRN Reason Stop Dose Admin Lorazepam 1 mg 07/04/24 14:12 07/04/24 14:19 Lorazepam 1 Mg Tablet PO 07/04/24 14:13 1 mg ONCE ONE Administration Medical Decision Making Medical Decision Making [facility] Narrative: 1413 39 year old female presents w/ cp, palpitations and anxiety since this am PE benign but patient does appear anxious. HX and pe concerning for anxiety non cardiac related cp. Unlikely acs, pe, pneumothorax. No signs of cardiopulmonary distresss. Plan- labs, urine, ativan for anxiety. Differential Diagnosis Differential Diagnoses: The differential diagnosis associated with the presentation includes Admission/Observation Consideration of admission/observation: Escalation of care including admission/observation considered Lab Data [facility] Lab Attestation statement: I reviewed the patient's lab results. 07/04/24 14:08 07/04/24 14:08 Labs: Lab Results 07/04/24 07/04/24 Range/Units 14:08 15:42 WBC 10.5 (4.8-10.8) X10*3/uL RBC 4.67 (4.20-5.50) X10*6/uL Hgb 13.5 (12.0-16.0) g/dl Hct 39.6 (37.0-47.0) % MCV 84.8 (80.0-98.0) fL MCH 28.9 (27.0-33.0) pg MCHC 34.1 (31.0-35.0) g/dl RDW 14.8 (11.0-16.0) % Plt Count 362 (160-400) X10*3/uL MPV 8.8 L (9.4-12.3) fL Immature Gran % (Auto) 0.4 (0.0-0.4) % Neut % (Auto) 76.0 H (45-73) % Lymph % (Auto) 16.3 L (20-40) % [place] % (Auto) 6.5 (2-11) % Eos % (Auto) 0.5 (0-4) % Baso % (Auto) 0.3 (0-2) % Lymph # (Auto) 1.7 (1.2-4.9) X10*3/uL [place] # (Auto) 0.7 (0.1-1.2) X10*3/uL Eos # (Auto) 0.1 (0.0-0.4) X10*3/uL Baso # (Auto) 0.0 (0.0-0.2) X10*3/uL Abs Immat Gran (auto) 0.04 H (0.00-0.03) X10*3/uL Absolute Neuts (auto) 8.0 (2.0-8.3) x10*3/uL Absolute Nucleated RBC 0.000 (0.0-0.012) X10*3/uL Nucleated RBC % (auto) 0.0 (0.0-0.2) /100WBC D-Dimer High Sensitivty 168 NG/ML Sodium 135 (135-145) mmol/L Potassium 3.4 (3.3-5.1) mmol/L Chloride 108 (96-108) mmol/L Carbon Dioxide 20 L (22-29) mmol/L Anion Gap 10 L (12-20) BUN 13 (9-16) mg/dL Creatinine 0.81 (0.5-1.4) mg/dL Estim Creat Clear Calc 80.4 Estimated GFR > 60 Random Glucose 89 (60-115) mg/dL Calcium 8.1 L D (8.4-10.2) mg/dL Magnesium 1.8 (1.6-2.6) mg/dL Total Bilirubin 0.3 (0.0-1.0) mg/dL AST 29 (5-31) U/L ALT 31 (0-31) U/L Alkaline Phosphatase 57 (39-117) U/L Troponin I High Sens < 2.7 < 2.7 (<3.5-17.0) ng/L Total Protein 6.3 L (6.5-8.0) g/dL Albumin 3.6 (3.5-5.0) g/dL Independent Interpretation I performed an independent interpretation of an: EKG (Vent. Rate : 114 BPM Atrial Rate : 114 BPM P-R Int : 148 ms QRS Dur : 078 ms QT Int : 344 ms P-R-T Axes : 063 061 012 degrees QTc Int : 474 ms Sinus tachycardia Otherwise normal ECG When compared with ECG of 10-MAR-2023 23:41, Nonspecific T wave abnormality no longer e) Radiology Impression Discussion of test interpretation with radiology: I have reviewed the radiologist's reading. External Record Review External record reviewed: Inpatient record, Office record, Outpatient record, Prior outpatient labs, Prior outpatient radiology and Primary care record Chronic Conditions Patient?s care impacted by: Other (bipolar, anxiety, obesity, depression, mitral and aortic insufficiency ) Critical Care Time Critical Care Time Critical Care Time: Yes Total Critical Care Time: 35 Attestation: I attest to this time spent taking care of the patient, obtaining history, physical, reviewing labs, imaging, speaking to my attending, speaking to specialist. Discharge Plan Discharge Clinical Impression: Chest pain, Anxiety Patient Disposition: Home, Self-Care Instructions: Chest Pain (ED), Chest Pain (DC), Anxiety (ED) Additional Instructions: Take your medications as prescribed. If you were prescribed antibiotics today, it is important that you take your medication to their entirety, do not skip any doses, do not finish them early. Follow-up with your primary care provider this week. Return to the emergency department with new or worsening symptoms. In case of emergency call 911 Prescriptions: No Action hydroxyzine pamoate 25 mg capsule 25 - 50 mg PO BID PRN (Reason: anxiety) lamotrigine 100 mg tablet 100 mg PO DAILY albuterol sulfate [ProAir HFA] 90 mcg/actuation HFA aerosol inhaler 2 puff inhalation Q4-6H PRN (Reason: shortness of breath or wheezing) Qty: 6.7 0RF fluoxetine [Prozac] 40 mg capsule 40 mg PO DAILY clonidine HCl 0.1 mg tablet See Rx Instructions .ROUTE .COMPLEX Rx Instructions: Take 1/2 tab in the am and 1 tab in the evening. buspirone 30 mg tablet 30 mg PO BID hydroxychloroquine 200 mg tablet See Rx Instructions PO .COMPLEX Qty: 144 0RF Rx Instructions: Take 1 tab twice a day x5 days a week and 1 tab daily x2 days a prednisone 5 mg tablet See Rx Instructions PO .COMPLEX Qty: 120 0RF Rx Instructions: Take 2 tabs daily for 1 month then remain on 1 tab daily Referrals: Vanessa Gonzalez MD [Primary Care Provider] - 2 days Stand Alone Forms: Work/School Release Print Language: Colombian
--- NOTE | 2024-07-04 13:12 | ECG_ITS ---
Test Reason : cp palpatations Blood Pressure : / mmHG Vent. Rate : 114 BPM Atrial Rate : 114 BPM P-R Int : 148 ms QRS Dur : 078 ms QT Int : 344 ms P-R-T Axes : 063 061 012 degrees QTc Int : 474 ms Sinus tachycardia Otherwise normal ECG When compared with ECG of 10-MAR-2023 23:41, Nonspecific T wave abnormality no longer evident in Anterior leads Referred By: Riley Pandey Electronically Signed By:Murali Tello
[2024-07-04 14:00] VITALS: PULSE 94; RESP 17; TEMP 36.8; O2SAT 100
[2024-07-04 14:14] LABS: MANUAL DIFF FLAG NO
[2024-07-04 14:15] LABS: Basophils Percent Auto 0.3 % (0-2); Eosinophils Absolute Auto 0.1 X10*3/uL (0.0-0.4); Eosinophils Percent Auto 0.5 % (0-4); Hematocrit 39.6 % (37.0-47.0); Hemoglobin 13.5 g/dl (12.0-16.0); Imm Gran Abs Auto 0.04 X10*3/uL (0.00-0.03); Imm Gran Pct Auto 0.4 % (0.0-0.4); Lymphocytes Absolute Auto 1.7 X10*3/uL (1.2-4.9); Lymphocytes Percent Auto 16.3 % (20-40); Mean Corpuscular HGB Conc 34.1 g/dl (31.0-35.0); Mean Corpuscular Hemoglobin 28.9 pg (27.0-33.0); Mean Corpuscular Volume 84.8 fL (80.0-98.0); Mean Platelet Volume 8.8 fL (9.4-12.3); Monocytes Absolute Auto 0.7 X10*3/uL (0.1-1.2); Monocytes Percent Auto 6.5 % (2-11); Platelet Count 362 X10*3/uL (160-400); Red Blood Count 4.67 X10*6/uL (4.20-5.50); Red Cell Distribution Width 14.8 % (11.0-16.0); White Blood Count 10.5 X10*3/uL (4.8-10.8)
[2024-07-04] MEDS: LORazepam 1 MG TABLET PO (14:19)
[2024-07-04 14:29] LABS: Alanine Aminotransferase 31 U/L (0-31); Albumin Level 3.6 g/dL (3.5-5.0); Alkaline Phosphatase 57 U/L (39-117); Anion Gap 10 (12-20); Aspartate Amino Transferase 29 U/L (5-31); Bilirubin Total 0.3 mg/dL (0.0-1.0); Blood Urea Nitrogen 13 mg/dL (9-16); Calcium 8.1 mg/dL (8.4-10.2); Carbon Dioxide 20 mmol/L (22-29); Chloride 108 mmol/L (96-108); Creatinine Clr Calc Pharmacy 80.4; Estimated Glomerular Filt Rate > 60; Glucose Random 89 mg/dL (60-115); Magnesium 1.8 mg/dL (1.6-2.6); Potassium 3.4 mmol/L (3.3-5.1); Sodium 135 mmol/L (135-145); Total Protein 6.3 g/dL (6.5-8.0)
[2024-07-04 14:31] LABS: D Dimer High Sensitivity 168 NG/ML
[2024-07-04 14:36] LABS: Troponin-I High Sensitivity < 2.7 ng/L (<3.5-17.0)
[2024-07-04 16:07] LABS: Troponin-I High Sensitivity < 2.7 ng/L (<3.5-17.0)
[2024-07-04] MEDS: LORazepam 0.5 MG TABLET PO (16:24)
[2024-07-04 16:28] VITALS: BP 130/76; PULSE 102; RESP 18; TEMP 36.6; O2SAT 100
== END 2024-07-04 16:29 | disposition home or self-care (01) ==
PROVIDERS: Physician Assistant; Emergency Provider Student in an Organized Health Care Education/Training Program; PCP Internal Medicine
DX: R07.9 Chest pain, unspecified (principal); F41.9 Anxiety disorder, unspecified; R00.2 Palpitations; R07.89 Other chest pain; Z79.899 Other long term (current) drug therapy
CPT/HCPCS: 36415; 80053; 83735; 84484; 85025; 85379; 93005; 99283; 99284

== ENCOUNTER → 2024-07-04 13:12 | Outpatient (BNV) | payer OTHER, SELFPAY | PROVIDERS: Emergency Provider Student in an Organized Health Care Education/Training Program; PCP Internal Medicine; Visit Provider Internal Medicine Cardiovascular Disease | DX: R00.0 Tachycardia, unspecified (principal) | CPT/HCPCS: 93010 ==

== ENCOUNTER 2024-07-14 14:57 | Emergency (ER) | payer OTHER, SELFPAY ==
--- NOTE | ~2024-07-14 | XR_ITS ---
EXAMINATION: XR CHEST CLINICAL INFORMATION: chest pain COMPARISON: Chest x-ray January 19, 2024 TECHNIQUE: Frontal portable view of the chest was obtained. 4:43 PM FINDINGS: No significant abnormality is noted involving the heart, lungs, mediastinum, bony thorax or soft tissues. XR/XR chest 1V IMPRESSION: Unremarkable examination. Electronically signed by: Sixto Law MD 07/14/2024 06:31 PM EST
--- NOTE | 2024-07-14 14:59 | ECG_ITS ---
Test Reason : chest pain Blood Pressure : / mmHG Vent. Rate : 130 BPM Atrial Rate : 130 BPM P-R Int : 120 ms QRS Dur : 076 ms QT Int : 400 ms P-R-T Axes : 033 046 036 degrees QTc Int : 588 ms Sinus tachycardia Nonspecific ST and T wave abnormality Abnormal ECG When compared with ECG of 04-JUL-2024 13:24, No significant change was found Referred By: Bianca Reno Electronically Signed By:URMILA RAYMUNDO
[2024-07-14 15:10] VITALS: BP 113/63; PULSE 114; RESP 28; TEMP 37; O2SAT 100; BMI 30.9
--- NOTE | 2024-07-14 15:10 | ED.GENADULT ---
HPI - General Adult General Chief complaint: Chest Pain Stated complaint: Chest Pressure Dizzy Nausea Time Seen by Provider: 07/14/24 16:31 Source: patient Mode of arrival: ambulatory Limitations: no limitations History of Present Illness ED Provider: Bill VASQUEZ HPI narrative: 39-year-old female history of anxiety presents to the ED for chest pain, shortness of breath, tingling in all extremities, and feeling anxious. Patient describes chest pain as chest tightness and similar to have a panic attack. Patient's states that patient has been noncompliant with her anxiety medications and has actually stopped following up with her therapist. He states patient has had been having recurrent anxiety attacks and these symptoms are due to anxiety. Patient does have history of depression and is taking her depressive medications. Patient is not suicidal or homicidal. Patient denies any fever, chills, leg swelling, recent long travel, recent surgery, or pitting edema Related Data Home Medications ?Medication ?Instructions ?Recorded ?Confirmed buspirone 30 mg tablet 30 mg PO BID 05/08/23 06/23/24 clonidine HCl 0.1 mg tablet See Rx Instructions .Route .COMPLEX 05/08/23 06/23/24 fluoxetine 40 mg capsule (Prozac) 40 mg PO DAILY 05/08/23 06/23/24 hydroxyzine pamoate 25 mg capsule 25 - 50 mg PO BID PRN anxiety 07/11/23 06/23/24 lamotrigine 100 mg tablet 100 mg PO DAILY 07/11/23 06/23/24 Previous Rx's ?Medication ?Instructions ?Recorded albuterol sulfate 90 mcg/actuation 2 puff inhalation Q4-6H PRN 01/20/24 aerosol inhaler (ProAir HFA) shortness of breath or wheezing #6.7 grams hydroxychloroquine 200 mg tablet See Rx Instructions PO .COMPLEX 06/27/24 #144 tabs prednisone 5 mg tablet See Rx Instructions PO .COMPLEX 06/27/24 #120 tabs Allergies Allergy/AdvReac Type Severity Reaction Status Date / Time oxycodone [From Percocet] Allergy Mild ITCH/HIVES Verified 07/14/24 15:12 BLUE CHEESE Allergy Unknown HIVES Uncoded 07/04/24 12:44 Percocet Allergy Unknown hives Uncoded 07/04/24 12:44 Review of Systems Review of Systems: Anxious, chest tightness, tingling in all extremities nausea Yes all other systems are reviewed and are negative [facility] Past Medical History Medical History Major depress dis, severe Scoliosis Mitral and aortic insufficiency Asthma, exercise induced GERD (gastroesophageal reflux disease) History of behavioral and mental health problems Encounter for behavioral health screening Surgical History Dermoid cyst S/P removal of ovarian cyst History of elbow surgery H/O shoulder surgery History of surgery on lower extremity H/O section Family History Family History Mother Mental health disorder Father History of quadruple bypass Social History Social History Household Members: Significant Other, Family and Children Housing: House Alcohol intake: current Alcohol intake frequency: holidays/special occasions only Alcohol type: hard liquor Patient Tobacco Use Status: Never used Tobacco Smoked in Last 30 Days: No e-Cigarette/Vaping Use: Never Used Second Hand Smoke Exposure: No Use of substances other than those prescribed or required for medical reasons: No Advance Directives: No Advance Directives Information Provided: No Patient : No service: No Current occupational status: disabled Cognitive needs: No Hearing needs: Yes Vision needs: Yes Physical Exam ED Vital Signs: Vital Signs - 24 hr 07/14/24 15:10 07/14/24 16:57 07/14/24 18:35 Temperature 98.6 F Pulse Rate 114 H 92 100 Respiratory Rate 28 H 22 H 22 H Blood Pressure 113/63 118/72 123/67 Pulse Oximetry 100 100 100 Oxygen Delivery Method Room Air Room Air Room Air 07/14/24 20:05 07/14/24 21:10 Temperature 98.5 F 98.5 F Pulse Rate 94 95 Respiratory Rate 22 H 24 H Blood Pressure 95/60 125/75 Pulse Oximetry 99 99 Oxygen Delivery Method Room Air Room Air BMI result Body Mass Index 30.9 Const General: cooperative, healthy appearing, comfortable, no acute distress, well developed, alert, awake and Physically active Orientation/consciousness: patient oriented x3 HENMT Head: Yes normal to inspection, Yes No palpable skull fracture present, Yes normocephalic and Yes atraumatic Eyes General: appearance normal, both eyes and all related structures Neck Neck: Yes normal visual inspection, Yes full ROM, Yes no lymphadenopathy, Yes no meningeal signs, Yes trachea midline, Yes supple, No anterior neck swelling and No tender Chest Chest palpation & inspection: normal inspection of the chest and normal palpation of entire chest wall Resp Effort & Inspection: normal respiratory effort and able to speak in complete sentences Auscultation: clear to auscultation bilaterally Cardio Jugular venous distension: no JVD Heart sounds: S1 normal heart sound present and S2 normal heart sound present GI Inspection: Yes normal to inspection Palpation (GI): Soft to palpation, not firm, nontender, no guarding and not rigid General: No CVA tenderness and Yes no CVA tenderness Back/Spine/Pelvis Back: no CVA tenderness, No CVA tenderness and No back tenderness Skin General skin exam: no rashes or lesions noted, elasticity normal and turgor normal Neuro General: patient oriented x3, gait normal, tone normal, moves all extremities, Normal light touch and pain sensation, no meningeal signs, no focal motor deficits, CN's II-XI intact bilaterally and normal sensation to monofilament Extrem Other: Bilateral lower extremity negative for swelling, pitting edema, erythema, or calf tenderness. General: Yes normal to inspection, Yes full ROM and Yes capillary refill normal Psych Appearance: grossly normal, well kempt and not disheveled Course Course Course Narrative: RME performed by Bianca Reno PA-C. Patient is a 39 year old assigned female at presenting to the emergency department with chest pain and shortness of breath. Patient states over the last few hours she has had worsening shortness of breath and difficulty breathing. Detailed physical exam and review of systems are deferred to the supervisor waterproofing. EKG, labs, imaging, and swabs ordered. Patient placed back in the waiting room pending room availability and results. Medications Administered Discontinued Medications Generic Name Dose Route Start Last Admin Trade Name Freq PRN Reason Stop Dose Admin Lorazepam 1 mg 07/14/24 18:58 07/14/24 19:45 Lorazepam 1 Mg Tablet PO 07/14/24 18:59 1 mg ONCE ONE Administration Medical Decision Making Medical Decision Making MDM Narrative: 39-year-old female presents to ED for chest tightness, tingling in all extremities, anxious, tearful since 1400. thinks it is due to anxiety meds. Patient has seemed very anxious but will do medical workup. Will order EKG labs D-dimer troponin BNP and thyroid levels. 8:54pm: EKG negative STEMI. Two troponins negative. Thyroid level is normal. D-dimer negative. PERC score 1. Symptoms most likely probably due to anxiety but patient informed to follow up with primary care provider and her therapist. Patient has Atarax at home and will be compliant in taking her Atarax for anxiety and other psych medications. Patient denies any suicidal or homicidal ideation. No need for care team evaluation. Chest x-ray negative pneumonia. Patient explained worrisome signs or informed to return to the ED immediately. Not suspecting aortic dissection, pneumothorax, hemothorax, myocarditis, pericarditis, cardiac tamponade, stroke, PE, AR, or CHF. Symptoms resolved after being given Ativan. Differential Diagnosis Differential Diagnoses: The differential diagnosis associated with the presentation includes (Anxiety, myocardial infarction, pneumonia) Admission/Observation Consideration of admission/observation: Escalation of care including admission/observation considered Lab Data MDM Lab Attestation statement: I reviewed the patient's lab results. 07/14/24 15:29 07/14/24 16:03 Labs: Lab Results 07/14/24 07/14/24 07/14/24 Range/Units 15:29 16:03 16:56 WBC 9.8 (4.8-10.8) X10*3/uL RBC 5.03 (4.20-5.50) X10*6/uL Hgb 14.4 (12.0-16.0) g/dl Hct 42.3 (37.0-47.0) % MCV 84.1 (80.0-98.0) fL MCH 28.6 (27.0-33.0) pg MCHC 34.0 (31.0-35.0) g/dl RDW 14.6 (11.0-16.0) % Plt Count 375 (160-400) X10*3/uL MPV 9.0 L (9.4-12.3) fL Immature Gran % (Auto) 0.4 (0.0-0.4) % Neut % (Auto) 73.5 H (45-73) % Lymph % (Auto) 18.8 L (20-40) % [place] % (Auto) 5.8 (2-11) % Eos % (Auto) 1.2 (0-4) % Baso % (Auto) 0.3 (0-2) % Lymph # (Auto) 1.8 (1.2-4.9) X10*3/uL [place] # (Auto) 0.6 (0.1-1.2) X10*3/uL Eos # (Auto) 0.1 (0.0-0.4) X10*3/uL Baso # (Auto) 0.0 (0.0-0.2) X10*3/uL Abs Immat Gran (auto) 0.04 H (0.00-0.03) X10*3/uL Absolute Neuts (auto) 7.2 (2.0-8.3) x10*3/uL Absolute Nucleated RBC 0.000 (0.0-0.012) X10*3/uL Nucleated RBC % (auto) 0.0 (0.0-0.2) /100WBC PT 10.7 L (10.9-12.4) SEC INR 0.9 (0.9-1.1) D-Dimer High Sensitivty 183 NG/ML Sodium 137 (135-145) mmol/L Potassium 3.7 (3.3-5.1) mmol/L Chloride 105 (96-108) mmol/L Carbon Dioxide 18 L (22-29) mmol/L Anion Gap 18 (12-20) BUN 11 (9-16) mg/dL Creatinine 0.98 (0.5-1.4) mg/dL Estim Creat Clear Calc 66.7 Estimated GFR > 60 Random Glucose 105 (60-115) mg/dL Calcium 9.2 D (8.4-10.2) mg/dL Magnesium 1.9 (1.6-2.6) mg/dL Total Bilirubin 0.3 (0.0-1.0) mg/dL AST 21 (5-31) U/L ALT 16 (0-31) U/L Alkaline Phosphatase 76 (39-117) U/L Troponin I High Sens < 2.7 (<3.5-17.0) ng/L B-Natriuretic Peptide 15 (<100) pg/mL Total Protein 7.2 (6.5-8.0) g/dL Albumin 4.1 (3.5-5.0) g/dL TSH 0.84 (0.32-4.0) uIU/mL Influenza Type A (PCR) NEGATIVE (Negative) Influenza Type B (PCR) NEGATIVE (Negative) RSV RNA Qual (PCR) NEGATIVE (Negative) SARS-CoV-2 RNA (RT-PCR) NEGATIVE (Negative) 07/14/24 Range/Units 19:08 WBC (4.8-10.8) X10*3/uL RBC (4.20-5.50) X10*6/uL Hgb (12.0-16.0) g/dl Hct (37.0-47.0) % MCV (80.0-98.0) fL MCH (27.0-33.0) pg MCHC (31.0-35.0) g/dl RDW (11.0-16.0) % Plt Count (160-400) X10*3/uL MPV (9.4-12.3) fL Immature Gran % (Auto) (0.0-0.4) % Neut % (Auto) (45-73) % Lymph % (Auto) (20-40) % [place] % (Auto) (2-11) % Eos % (Auto) (0-4) % Baso % (Auto) (0-2) % Lymph # (Auto) (1.2-4.9) X10*3/uL [place] # (Auto) (0.1-1.2) X10*3/uL Eos # (Auto) (0.0-0.4) X10*3/uL Baso # (Auto) (0.0-0.2) X10*3/uL Abs Immat Gran (auto) (0.00-0.03) X10*3/uL Absolute Neuts (auto) (2.0-8.3) x10*3/uL Absolute Nucleated RBC (0.0-0.012) X10*3/uL Nucleated RBC % (auto) (0.0-0.2) /100WBC PT (10.9-12.4) SEC INR (0.9-1.1) D-Dimer High Sensitivty NG/ML Sodium (135-145) mmol/L Potassium (3.3-5.1) mmol/L Chloride (96-108) mmol/L Carbon Dioxide (22-29) mmol/L Anion Gap (12-20) BUN (9-16) mg/dL Creatinine (0.5-1.4) mg/dL Estim Creat Clear Calc Estimated GFR Random Glucose (60-115) mg/dL Calcium (8.4-10.2) mg/dL Magnesium (1.6-2.6) mg/dL Total Bilirubin (0.0-1.0) mg/dL AST (5-31) U/L ALT (0-31) U/L Alkaline Phosphatase (39-117) U/L Troponin I High Sens < 2.7 (<3.5-17.0) ng/L B-Natriuretic Peptide (<100) pg/mL Total Protein (6.5-8.0) g/dL Albumin (3.5-5.0) g/dL TSH (0.32-4.0) uIU/mL Influenza Type A (PCR) (Negative) Influenza Type B (PCR) (Negative) RSV RNA Qual (PCR) (Negative) SARS-CoV-2 RNA (RT-PCR) (Negative) Independent Interpretation I performed an independent interpretation of an: EKG (Negative STEMI) and Plain X-Ray Radiology Impression Discussion of test interpretation with radiology: I have reviewed the radiologist's reading. Independent Historian Clinical information obtained from an independent historian. History obtained from or confirmed by: Spouse () and Other (Patient) External Record Review External record reviewed: Other (Private) Discharge Plan Discharge Clinical Impression: Chest pain, Anxiety Patient Disposition: Home, Self-Care Instructions: Chest Pain (ED), Anxiety (ED) Additional Instructions: You'e EKG, and imaging came back negative for signs of heart attack, heart failure, or blood clot. Recommend follow-up with your primary care provider and therapist. Recommend being compliant with anxiety medication. Return to the ED immediately for any leg swelling, calf pain, chest pain, shortness of breath, coughing up blood, slurred speech, facial droop, paralysis of extremities, or any other concerning symptoms. Prescriptions: No Action hydroxyzine pamoate 25 mg capsule 25 - 50 mg PO BID PRN (Reason: anxiety) lamotrigine 100 mg tablet 100 mg PO DAILY albuterol sulfate [ProAir HFA] 90 mcg/actuation HFA aerosol inhaler 2 puff inhalation Q4-6H PRN (Reason: shortness of breath or wheezing) Qty: 6.7 0RF fluoxetine [Prozac] 40 mg capsule 40 mg PO DAILY clonidine HCl 0.1 mg tablet See Rx Instructions .ROUTE .COMPLEX Rx Instructions: Take 1/2 tab in the am and 1 tab in the evening. buspirone 30 mg tablet 30 mg PO BID hydroxychloroquine 200 mg tablet See Rx Instructions PO .COMPLEX Qty: 144 0RF Rx Instructions: Take 1 tab twice a day x5 days a week and 1 tab daily x2 days a prednisone 5 mg tablet See Rx Instructions PO .COMPLEX Qty: 120 0RF Rx Instructions: Take 2 tabs daily for 1 month then remain on 1 tab daily Stand Alone Forms: Work/School Release Interventions: ED Discharge Assessment Last Done: 07/14/24 21:10 Discharge Date/Time: 07/14/24 21:11 Print Language: Niuean
[2024-07-14 15:37] LABS: Basophils Percent Auto 0.3 % (0-2); Eosinophils Absolute Auto 0.1 X10*3/uL (0.0-0.4); Eosinophils Percent Auto 1.2 % (0-4); Hematocrit 42.3 % (37.0-47.0); Hemoglobin 14.4 g/dl (12.0-16.0); Imm Gran Abs Auto 0.04 X10*3/uL (0.00-0.03); Imm Gran Pct Auto 0.4 % (0.0-0.4); Lymphocytes Absolute Auto 1.8 X10*3/uL (1.2-4.9); Lymphocytes Percent Auto 18.8 % (20-40); MANUAL DIFF FLAG NO; Mean Corpuscular Hemoglobin 28.6 pg (27.0-33.0); Mean Corpuscular Volume 84.1 fL (80.0-98.0); Monocytes Absolute Auto 0.6 X10*3/uL (0.1-1.2); Monocytes Percent Auto 5.8 % (2-11); Neutrophils Absolute Auto 7.2 x10*3/uL (2.0-8.3); Neutrophils Percent Auto 73.5 % (45-73); Platelet Count 375 X10*3/uL (160-400); Red Blood Count 5.03 X10*6/uL (4.20-5.50); Red Cell Distribution Width 14.6 % (11.0-16.0); White Blood Count 9.8 X10*3/uL (4.8-10.8)
[2024-07-14 15:57] LABS: INTERNATIONAL NORM RATIO 0.9 (0.9-1.1); Prothrombin Time 10.7 SEC (10.9-12.4)
[2024-07-14 16:22] LABS: Alanine Aminotransferase 16 U/L (0-31); Albumin Level 4.1 g/dL (3.5-5.0); Alkaline Phosphatase 76 U/L (39-117); Anion Gap 18 (12-20); Aspartate Amino Transferase 21 U/L (5-31); Bilirubin Total 0.3 mg/dL (0.0-1.0); Blood Urea Nitrogen 11 mg/dL (9-16); Calcium 9.2 mg/dL (8.4-10.2); Carbon Dioxide 18 mmol/L (22-29); Chloride 105 mmol/L (96-108); Creatinine Clr Calc Pharmacy 66.7; Estimated Glomerular Filt Rate > 60; Glucose Random 105 mg/dL (60-115); Magnesium 1.9 mg/dL (1.6-2.6); Potassium 3.7 mmol/L (3.3-5.1); Sodium 137 mmol/L (135-145); Total Protein 7.2 g/dL (6.5-8.0)
[2024-07-14 16:30] LABS: Troponin-I High Sensitivity < 2.7 ng/L (<3.5-17.0)
[2024-07-14 16:57] VITALS: BP 118/72; PULSE 92; RESP 22; O2SAT 100
[2024-07-14 17:22] LABS: B Type Natriuretic Peptide 15 pg/mL (<100); D Dimer High Sensitivity 183 NG/ML
[2024-07-14 17:48] LABS: TSH reflex Free T4 0.84 uIU/mL (0.32-4.0)
[2024-07-14 17:55] LABS: Influenza A PCR NEGATIVE (Negative); Influenza B PCR NEGATIVE (Negative); Resp Syncy Virus RNA Qual PCR NEGATIVE (Negative); SARS COV2 PCR INHOUSE NEGATIVE (Negative)
[2024-07-14 18:35] VITALS: BP 123/67; PULSE 100; RESP 22; O2SAT 100
[2024-07-14 19:35] LABS: Troponin-I High Sensitivity < 2.7 ng/L (<3.5-17.0)
[2024-07-14] MEDS: LORazepam 1 MG TABLET PO (19:45)
[2024-07-14 20:05] VITALS: BP 95/60; PULSE 94; RESP 22; TEMP 36.9; O2SAT 99
--- NOTE | 2024-07-14 20:05 | MHC.EDTECH ---
This pct assumed care of Patient at 1900 ,vitals taken ,no apparent distress noted ,Plan of care continue .
[2024-07-14 21:10] VITALS: BP 125/75; PULSE 95; RESP 24; TEMP 36.9; O2SAT 99
== END 2024-07-14 21:11 | disposition home or self-care (01) ==
PROVIDERS: Physician Assistant; Emergency Provider Student in an Organized Health Care Education/Training Program; PCP Internal Medicine
DX: R07.9 Chest pain, unspecified (principal); F41.9 Anxiety disorder, unspecified; R06.02 Shortness of breath; Z03.818 Encounter for observation for suspected exposure to other biological agents ruled out
CPT/HCPCS: 0241U; 36415; 71045; 80053; 83735; 83880; 84443; 84484; 85025; 85379; 85610; 93005; 99285

== ENCOUNTER → 2024-07-14 14:59 | Outpatient (BNV) | payer OTHER, SELFPAY | PROVIDERS: Emergency Provider Student in an Organized Health Care Education/Training Program; PCP Internal Medicine; Visit Provider Internal Medicine | DX: R94.31 Abnormal electrocardiogram [ECG] [EKG] (principal) | CPT/HCPCS: 93010 ==

== ENCOUNTER 2024-11-07 15:13 | Emergency (ER) | payer OTHER, SELFPAY ==
--- NOTE | 2024-11-07 15:21 | ECG_ITS ---
Test Reason : PALPITATIONS Blood Pressure : */* mmHG Vent. Rate : 110 BPM Atrial Rate : 110 BPM P-R Int : 150 ms QRS Dur : 74 ms QT Int : 344 ms P-R-T Axes : 60 57 18 degrees QTcB Int : 465 ms Sinus tachycardia Possible Left atrial enlargement T wave abnormality, consider anterior ischemia Abnormal ECG When compared with ECG of 14-Jul-2024 14:56, No significant change was found Referred By: Generic ED Physician Electronically Signed By: Murali Tello
[2024-11-07 15:34] VITALS: BP 125/74; PULSE 111; RESP 16; TEMP 36.9; O2SAT 98; BMI 28.7
--- NOTE | 2024-11-07 15:34 | ED.ARRPALP ---
HPI - Arrhythmia/Palpitations General Chief Complaint: Chest Pain Stated Complaint: heart is beating fast Related Data Home Medications ?Medication ?Instructions ?Recorded ?Confirmed buspirone 30 mg tablet 30 mg PO BID 05/08/23 06/23/24 clonidine HCl 0.1 mg tablet See Rx Instructions .Route .COMPLEX 05/08/23 06/23/24 fluoxetine 40 mg capsule (Prozac) 40 mg PO DAILY 05/08/23 06/23/24 hydroxyzine pamoate 25 mg capsule 25 - 50 mg PO BID PRN anxiety 07/11/23 06/23/24 lamotrigine 100 mg tablet 100 mg PO DAILY 07/11/23 06/23/24 Previous Rx's ?Medication ?Instructions ?Recorded albuterol sulfate 90 mcg/actuation 2 puff inhalation Q4-6H PRN 01/20/24 aerosol inhaler (ProAir HFA) shortness of breath or wheezing #6.7 grams hydroxychloroquine 200 mg tablet See Rx Instructions PO .COMPLEX 06/27/24 #144 tabs prednisone 5 mg tablet See Rx Instructions PO .COMPLEX 06/27/24 #120 tabs Allergies Allergy/AdvReac Type Severity Reaction Status Date / Time oxycodone [From Percocet] Allergy Mild ITCH/HIVES Verified 11/07/24 15:35 BLUE CHEESE Allergy Unknown HIVES Uncoded 11/07/24 15:35 Percocet Allergy Unknown hives Uncoded 11/07/24 15:35 PMFSH Past Medical History Medical History Major depress dis, severe Scoliosis Mitral and aortic insufficiency Asthma, exercise induced GERD (gastroesophageal reflux disease) History of behavioral and mental health problems Encounter for behavioral health screening Surgical History Dermoid cyst S/P removal of ovarian cyst History of elbow surgery H/O shoulder surgery History of surgery on lower extremity H/O section Family History Family History Mother Mental health disorder Father History of quadruple bypass Social History Social History Household Members: Significant Other, Family and Children Housing: House Alcohol intake: current Alcohol intake frequency: holidays/special occasions only Alcohol type: hard liquor Patient Tobacco Use Status: Never used Tobacco e-Cigarette/Vaping Use: Never Used Second Hand Smoke Exposure: No Advance Directives: No Advance Directives Information Provided: No service: No Current occupational status: disabled Cognitive needs: No Hearing needs: Yes Vision needs: Yes Physical Exam Vital Signs: Vital Signs: Last Vital Signs Temp 98.4 F 11/07/24 15:34 Pulse 111 H 11/07/24 15:34 Resp 16 11/07/24 15:34 BP 125/74 11/07/24 15:34 Pulse Ox 98 11/07/24 15:34 O2 Del Method Room Air 11/07/24 15:34 BMI result Body Mass Index 28.7 Course Course Course Narrative: This is a Rapid Medical Exam performed in triage by Polly Alexandre PA-C. Full HPI, ROS and PE to be performed by primary ED provider. 39 yo F w/pmhx PTSD, anxiety, depression, OA, mitral & aortic valve insufficiency presenting to the ED c/o palpitations & heart was feeling weird w/+assoc SOB & nausea. Sx started while patient was experiencing panic attack. Took her PRN Hydroxizine [employer] PE: anxious, NAD, nontoxic appearing, talking in complete sentences Plan: EKG, labs Discharge Plan Discharge Clinical Impression: Chest pain Patient Disposition: Left W/O Completing Treatment Prescriptions: No Action hydroxyzine pamoate 25 mg capsule 25 - 50 mg PO BID PRN (Reason: anxiety) lamotrigine 100 mg tablet 100 mg PO DAILY albuterol sulfate [ProAir HFA] 90 mcg/actuation HFA aerosol inhaler 2 puff inhalation Q4-6H PRN (Reason: shortness of breath or wheezing) Qty: 6.7 0RF fluoxetine [Prozac] 40 mg capsule 40 mg PO DAILY clonidine HCl 0.1 mg tablet See Rx Instructions .ROUTE .COMPLEX Rx Instructions: Take 1/2 tab in the am and 1 tab in the evening. buspirone 30 mg tablet 30 mg PO BID hydroxychloroquine 200 mg tablet See Rx Instructions PO .COMPLEX Qty: 144 0RF Rx Instructions: Take 1 tab twice a day x5 days a week and 1 tab daily x2 days a prednisone 5 mg tablet See Rx Instructions PO .COMPLEX Qty: 120 0RF Rx Instructions: Take 2 tabs daily for 1 month then remain on 1 tab daily Discharge Date/Time: 11/07/24 18:33
== END 2024-11-07 18:33 | disposition left against medical advice (07) ==
PROVIDERS: Emergency Provider Emergency Medicine; PCP Student in an Organized Health Care Education/Training Program
DX: I49.9 Cardiac arrhythmia, unspecified (principal); R07.89 Other chest pain; R06.02 Shortness of breath; R11.0 Nausea; Z79.899 Other long term (current) drug therapy
CPT/HCPCS: 93005; 99283

== ENCOUNTER → 2024-11-07 15:21 | Outpatient (BNV) | payer OTHER, SELFPAY | PROVIDERS: Emergency Provider Emergency Medicine; PCP Student in an Organized Health Care Education/Training Program; Visit Provider Internal Medicine Cardiovascular Disease | DX: R00.0 Tachycardia, unspecified (principal) | CPT/HCPCS: 93010 ==

== ENCOUNTER 2024-11-19 15:14 | Emergency (ER) | payer OTHER, SELFPAY ==
[2024-11-19 15:24] VITALS: BP 134/68; PULSE 120; RESP 12; TEMP 37.1; O2SAT 100; BMI 29.4
--- NOTE | 2024-11-19 15:32 | ED_ITS ---
HPI - Nausea/Vomiting/Diarrhea General Chief complaint: Nausea/Vomiting/Diarrhea Stated complaint: Nauseas, shakiness Time Seen by Provider: 11/19/24 21:22 Source: patient Mode of arrival: ambulatory Limitations: no limitations History of Present Illness ED Provider: Leilani Oglesby NP HPI Narrative: Patient is a 39-year-old female who presents emergency department family for evaluation. She reports at 12:00 this afternoon she was feeling nauseous generally weak and a bit shaky. She denies any recent sick contacts. Denies associated fevers, chills, chest pain, shortness of breath, dizziness, lightheadedness, vomiting, diarrhea, abdominal pain, genitourinary symptoms. Family at bedside states that she did sleep almost the entirety of the morning up until around noon time. At approximately 13:00 she had have a slice of banana bread and has not eaten anything else since then. Family states that over the past 3 days she has been taking all of her psychiatric medicines twice daily as prescribed in a consistent fashion which she has not recently been doing. Related Data Home Medications ?Medication ?Instructions ?Recorded ?Confirmed buspirone 30 mg tablet 30 mg PO BID 05/08/23 06/23/24 clonidine HCl 0.1 mg tablet See Rx Instructions .Route .COMPLEX 05/08/23 06/23/24 fluoxetine 40 mg capsule (Prozac) 40 mg PO DAILY 05/08/23 06/23/24 hydroxyzine pamoate 25 mg capsule 25 - 50 mg PO BID PRN anxiety 07/11/23 06/23/24 lamotrigine 100 mg tablet 100 mg PO DAILY 07/11/23 06/23/24 Previous Rx's ?Medication ?Instructions ?Recorded albuterol sulfate 90 mcg/actuation 2 puff inhalation Q4-6H PRN 01/20/24 aerosol inhaler (ProAir HFA) shortness of breath or wheezing #6.7 grams hydroxychloroquine 200 mg tablet See Rx Instructions PO .COMPLEX 06/27/24 #144 tabs prednisone 5 mg tablet See Rx Instructions PO .COMPLEX 06/27/24 #120 tabs Allergies Allergy/AdvReac Type Severity Reaction Status Date / Time oxycodone [From Percocet] Allergy Mild ITCH/HIVES Verified 11/19/24 15:25 BLUE CHEESE Allergy Unknown HIVES Uncoded 11/19/24 15:25 Percocet Allergy Unknown hives Uncoded 11/19/24 15:25 Review of Systems 2 Review of Systems: Yes all other systems are reviewed and are negative [facility] Past Medical History Attestation statement: The following information was validated with the patient. Source: old records reviewed Medical History Major depress dis, severe Scoliosis Mitral and aortic insufficiency Asthma, exercise induced GERD (gastroesophageal reflux disease) History of behavioral and mental health problems Encounter for behavioral health screening Surgical History Dermoid cyst S/P removal of ovarian cyst History of elbow surgery H/O shoulder surgery History of surgery on lower extremity H/O section Family History Family History Mother Mental health disorder Father History of quadruple bypass Social History Social History Household Members: Significant Other, Family and Children Housing: House Alcohol intake: current Alcohol intake frequency: holidays/special occasions only Alcohol type: hard liquor Patient Tobacco Use Status: Never used Tobacco e-Cigarette/Vaping Use: Never Used Second Hand Smoke Exposure: No Advance Directives: No Advance Directives Information Provided: Yes Do you have a plan to hurt others: No Plan service: No Current occupational status: disabled Cognitive needs: No Hearing needs: Yes Vision needs: Yes Physical Exam 2 Vital Signs: Vital Signs: Last Vital Signs Temp 98.0 F 11/20/24 00:28 Pulse 74 11/20/24 00:28 Resp 16 11/20/24 00:28 BP 120/77 11/20/24 00:28 Pulse Ox 100 11/20/24 00:28 O2 Del Method Room Air 11/20/24 00:28 BMI result Body Mass Index 29.4 Appearance: Alert.?Oriented to person, place and time. No acute distress.?Normal affect. Eyes: Pupils equal, round and reactive to light.? ENT: Pharynx normal.?? Neck: Normal inspection.? Neck supple.?? CVS: Heart sounds normal. Normal heart rate and rhythm.? Pulses normal.?? Respiratory: No respiratory distress.? Lung sounds clear to auscultation bilaterally?? Abdomen: Soft and non-tender. Normoactive bowel sounds. Skin: Skin warm and dry.? Normal skin color.? ? Extremities: No lower extremity edema.? Neuro: Moves all extremities spontaneously. Sensation intact bilaterally. No focal neuro deficits. Ambulates with normal steady gait. Course Course Course Narrative: This is an RME: Additional HPI, ROS, PE not included below will be deferred to primary provider. RME assessment and note performed by: Macey Gonzalez PA-C This is a 39-year-old female who presents emergency department with concerns for nausea, weakness, and shakiness which started at 12:00 p.m. this afternoon. Denies any vomiting or diarrhea. Denies any current pain. She is nontoxic appearing. Vital signs revealing tachycardia however appears to be anxious. No CP/SOB. Plan: Labs, EKG, UA, further ER eval needed Medical Decision Making Medical Decision Making MDM Narrative: Patient is a 39-year-old female with past medical history of depression, asthma, GERD, scoliosis, mitral and aortic insufficiency who presents emergency department for evaluation. She awoke this morning after sleeping the majority of the morning generalized nausea weakness and shakiness, she had only a half slices banana bread earlier this afternoon soon after waking up. At the time of my evaluation she states in fact she does feel quite a bit better from when she first woke up this morning. Family admits that she has been taking her psychiatric medications consistently for the past 3 days which very well may be attributing to her symptoms as well, but additionally her lack of oral intake is concerning as this may as well be attributing to her symptoms. She is nontoxic in appearance, afebrile, no tachycardia tachypnea or hypoxia. Blood pressure is stable. She had serum labs obtained prior to my assumption of care CBC is without leukocytosis anemia or thrombocytopenia. No significant electrolyte derangement. No [place]. LFTs unremarkable. High sensitive troponin below detectable limits, EKG revealing normal sinus rhythm with ventricular rate of 88, QTC 457, no ST-elevation negative. Normal TSH. Urinalysis is mildly concentrated, no evidence of UTI or microscopic hematuria. Viral serologies are negative. She was provided with food in the emergency department was able to tolerate without nausea or vomiting. Examination is entirely benign not have any suspicion for acute abdominal pathology. Differential Diagnosis Differential Diagnoses: The differential diagnosis associated with the presentation includes (See narrative above) Admission/Observation Consideration of admission/observation: Escalation of care including admission/observation considered Lab Data MDM Lab Attestation statement: I reviewed the patient's lab results. (See narrative above) 11/19/24 17:03 11/19/24 15:57 Labs: Lab Results 11/19/24 11/19/24 11/19/24 Range/Units 15:57 17:03 20:58 WBC 7.0 (4.8-10.8) X10*3/uL RBC 4.68 (4.20-5.50) X10*6/uL Hgb 13.9 (12.0-16.0) g/dl Hct 39.6 (37.0-47.0) % MCV 84.6 (80.0-98.0) fL MCH 29.7 (27.0-33.0) pg MCHC 35.1 H (31.0-35.0) g/dl RDW 12.8 (11.0-16.0) % Plt Count 342 (160-400) X10*3/uL MPV 9.7 (9.4-12.3) fL Immature Gran % (Auto) 0.3 (0.0-0.4) % Neut % (Auto) 64.4 (45-73) % Lymph % (Auto) 27.5 (20-40) % [place] % (Auto) 6.3 (2-11) % Eos % (Auto) 0.9 (0-4) % Baso % (Auto) 0.6 (0-2) % Lymph # (Auto) 1.9 (1.2-4.9) X10*3/uL [place] # (Auto) 0.4 (0.1-1.2) X10*3/uL Eos # (Auto) 0.1 (0.0-0.4) X10*3/uL Baso # (Auto) 0.0 (0.0-0.2) X10*3/uL Abs Immat Gran (auto) 0.02 (0.00-0.03) X10*3/uL Absolute Neuts (auto) 4.5 (2.0-8.3) x10*3/uL Absolute Nucleated RBC 0.000 (0.0-0.012) X10*3/uL Nucleated RBC % (auto) 0.0 (0.0-0.2) /100WBC Sodium 137 (135-145) mmol/L Potassium 4.0 (3.3-5.1) mmol/L Chloride 111 H (96-108) mmol/L Carbon Dioxide 17 L (22-29) mmol/L Anion Gap 13 (12-20) BUN 11 (9-16) mg/dL Creatinine 0.78 (0.5-1.4) mg/dL Estim Creat Clear Calc 81.8 Estimated GFR > 60 Random Glucose 87 (60-115) mg/dL Calcium 8.4 D (8.4-10.2) mg/dL Magnesium 2.0 (1.6-2.6) mg/dL Total Bilirubin 0.3 (0.0-1.0) mg/dL AST 26 (5-31) U/L ALT 25 (0-31) U/L Alkaline Phosphatase 54 (39-117) U/L Troponin I High Sens < 2.7 (<3.5-17.0) ng/L Total Protein 6.5 (6.5-8.0) g/dL Albumin 3.7 (3.5-5.0) g/dL TSH 0.85 (0.32-4.0) uIU/mL Beta HCG, Quant < 2 mIU/mL Urine Color Yellow Urine Appearance Clear Urine pH 5.5 (5.0-9.0) Ur Specific [place] 1.015 (1.005-1.025) Urine Protein Negative (Neg-Trace) mg/dL Urine Glucose (UA) Negative (Negative) mg/dL Urine Ketones Negative (Negative) mg/dL Urine Blood Negative (Negative) Urine Nitrite Negative (Negative) Ur Leukocyte Esterase Negative (Negative) Influenza Type A (PCR) NEGATIVE (Negative) Influenza Type B (PCR) NEGATIVE (Negative) RSV RNA Qual (PCR) NEGATIVE (Negative) SARS-CoV-2 RNA (RT-PCR) NEGATIVE (Negative) Independent Historian Clinical information obtained from an independent historian. History obtained from or confirmed by: Spouse External Record Review External record reviewed: Outpatient record Chronic Conditions Patient?s care impacted by: Other (See narrative above) Discharge Plan Discharge Clinical Impression: Weakness Patient Disposition: Home, Self-Care Additional Instructions: As discussed, your workup in the emergency department today was very reassuring. I suspect that your symptoms are due to lack of oral intake today as well as getting back onto a routine regimen with your psychiatric medications. Please be sure that you are staying well hydrated, drinking 8-12 8 oz glasses of fluid daily, water is always best. In addition make sure that you are consuming small frequent meals. Follow-up with your primary care doctor. You may return to emergency department any new or worsening symptoms or concerns. Prescriptions: No Action hydroxyzine pamoate 25 mg capsule 25 - 50 mg PO BID PRN (Reason: anxiety) lamotrigine 100 mg tablet 100 mg PO DAILY albuterol sulfate [ProAir HFA] 90 mcg/actuation HFA aerosol inhaler 2 puff inhalation Q4-6H PRN (Reason: shortness of breath or wheezing) Qty: 6.7 0RF fluoxetine [Prozac] 40 mg capsule 40 mg PO DAILY clonidine HCl 0.1 mg tablet See Rx Instructions .ROUTE .COMPLEX Rx Instructions: Take 1/2 tab in the am and 1 tab in the evening. buspirone 30 mg tablet 30 mg PO BID hydroxychloroquine 200 mg tablet See Rx Instructions PO .COMPLEX Qty: 144 0RF Rx Instructions: Take 1 tab twice a day x5 days a week and 1 tab daily x2 days a prednisone 5 mg tablet See Rx Instructions PO .COMPLEX Qty: 120 0RF Rx Instructions: Take 2 tabs daily for 1 month then remain on 1 tab daily Referrals: Vanessa Gonzalez MD [Primary Care Provider] - Interventions: ED Discharge Assessment Last Done: 11/20/24 00:28 Discharge Date/Time: 11/20/24 00:29 Print Language: Belarusian
--- NOTE | 2024-11-19 15:33 | ECG_ITS ---
Test Reason : TACHYCARDIA Blood Pressure : */* mmHG Vent. Rate : 88 BPM Atrial Rate : 88 BPM P-R Int : 142 ms QRS Dur : 72 ms QT Int : 378 ms P-R-T Axes : 61 37 15 degrees QTcB Int : 457 ms Normal sinus rhythm Normal ECG When compared with ECG of 07-Nov-2024 15:25, T wave inversion no longer evident in Anterior leads Referred By: Macey Gonzalez Electronically Signed By: URMILA RAYMUNDO
[2024-11-19 16:25] LABS: Troponin-I High Sensitivity < 2.7 ng/L (<3.5-17.0)
[2024-11-19 16:26] LABS: Alanine Aminotransferase 25 U/L (0-31); Albumin Level 3.7 g/dL (3.5-5.0); Alkaline Phosphatase 54 U/L (39-117); Anion Gap 13 (12-20); Aspartate Amino Transferase 26 U/L (5-31); Bilirubin Total 0.3 mg/dL (0.0-1.0); Blood Urea Nitrogen 11 mg/dL (9-16); Calcium 8.4 mg/dL (8.4-10.2); Carbon Dioxide 17 mmol/L (22-29); Chloride 111 mmol/L (96-108); Creatinine Clr Calc Pharmacy 81.8; Estimated Glomerular Filt Rate > 60; Glucose Random 87 mg/dL (60-115); Sodium 137 mmol/L (135-145); Total Protein 6.5 g/dL (6.5-8.0)
[2024-11-19 16:42] LABS: HCG Quantitative < 2 mIU/mL; Influenza A PCR NEGATIVE (Negative); Influenza B PCR NEGATIVE (Negative); Resp Syncy Virus RNA Qual PCR NEGATIVE (Negative); SARS COV2 PCR INHOUSE NEGATIVE (Negative); TSH reflex Free T4 0.85 uIU/mL (0.32-4.0)
[2024-11-19 17:14] LABS: MANUAL DIFF FLAG NO
[2024-11-19 17:24] LABS: Basophils Percent Auto 0.6 % (0-2); Eosinophils Absolute Auto 0.1 X10*3/uL (0.0-0.4); Eosinophils Percent Auto 0.9 % (0-4); Hematocrit 39.6 % (37.0-47.0); Hemoglobin 13.9 g/dl (12.0-16.0); Imm Gran Abs Auto 0.02 X10*3/uL (0.00-0.03); Imm Gran Pct Auto 0.3 % (0.0-0.4); Lymphocytes Absolute Auto 1.9 X10*3/uL (1.2-4.9); Lymphocytes Percent Auto 27.5 % (20-40); Mean Corpuscular HGB Conc 35.1 g/dl (31.0-35.0); Mean Corpuscular Hemoglobin 29.7 pg (27.0-33.0); Mean Corpuscular Volume 84.6 fL (80.0-98.0); Mean Platelet Volume 9.7 fL (9.4-12.3); Monocytes Absolute Auto 0.4 X10*3/uL (0.1-1.2); Monocytes Percent Auto 6.3 % (2-11); Neutrophils Absolute Auto 4.5 x10*3/uL (2.0-8.3); Neutrophils Percent Auto 64.4 % (45-73); Platelet Count 342 X10*3/uL (160-400); Red Blood Count 4.68 X10*6/uL (4.20-5.50); Red Cell Distribution Width 12.8 % (11.0-16.0)
--- OUTSIDE RECORDS SUMMARY | 2024-11-19 18:12 | XMS_ITS | Patient Health Record ---
Author Organization [facility] Address [address] [place] [phone] Support Name Relationship Address Phone PAYTON WILLIAMSON Guarantor Unknown Unavailabl e ALLERGIES No Known Allergies REASON FOR REFERRAL No Information MEDICATIONS Medication SIG (Take, Route, Frequency, Duration) Notes Start Date End Date Status Benzonatate 100 MG Oral for 5 Days Not-Taking Azithromycin 250 MG Oral for 4 Days Not-Taking FLUoxetine HCl 40 MG TAKE 1 CAPSULE BY M OUTH EVERY DAY IN THE MORNING Oral for 30 Days Active busPIRone HCl 15 MG Oral for 30 Days Active cloNIDine HCl 0.1 MG PLEASE SEE ATTACHED FOR DETAILED DIRECTIONS Oral for 30 Days Active PROBLEMS Problem Type ICD Code Onset Dates Problem Status W/U Status Risk SNOMED Code Notes Problem 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) Problem Major depressive disorder, recurrent severe without psychotic features (F33.2) Active confirmed Severe recurrent major depression without psychotic features (50419554) Problem Other fatigue (R53.83) Active confirmed Fatigue (93707811) PLAN OF TREATMENT No Information Insurance Providers Payer Name Payer Address Payer Phone Subscriber Number Group Number Insured Name Patient Relationship to Insured Coverage Start Date Coverage End Date [address] [place], [place] [id number] PAYTON WILLIAMSON Self - patient is the insured MEDICAL (GENERAL) HISTORY Medical History History ICD Code Problems: Problem:Chronic anxiety (findi ng) , Status :: end Problem:Fatigue (finding) , Status :: en d Problem:Major depression in complete rem ission (disorder) , Status :: end
[2024-11-19 20:58] VITALS: BP 109/59; PULSE 78; RESP 16; TEMP 36.7; O2SAT 100
[2024-11-19 21:08] LABS: Appearance Urine Clear; Color Urine Yellow; Glucose Urine UA Negative (Negative); Leukocyte Esterase Urine Negative (Negative); Nitrite Urine Negative (Negative); PH 5.5 (5.0-9.0); Specific Gravity - Urine 1.015 (1.005-1.025); Urine Blood Negative (Negative); Urine Ketones Negative (Negative); Urine Protein Negative (Neg-Trace)
--- NOTE | 2024-11-19 21:14 | PC.NURSE ---
Patient presents with c/o dizziness, nausea, and difficulty ambulating. [place] like her knees were giving out since 230p. History of mental health. Lungs clear bilat. Respirations even and non-labored. Abdomen soft, non-tender with positive bowel sounds. Positive pedal pulses with no edema. Pending provider eval.
[2024-11-19 22:56] VITALS: BP 120/77; BP 131/65; PULSE 61; PULSE 74
[2024-11-19 22:57] VITALS: BP 117/79; PULSE 82
[2024-11-19 22:59] VITALS: BP 120/77; PULSE 74; RESP 16; O2SAT 100
--- NOTE | 2024-11-19 23:09 | PC.NURSE ---
Took over care from JOSE Antonio, pt resting in stretcher no sign of distress.
--- NOTE | 2024-11-19 23:14 | PC.NURSE ---
pt tolerated po challenge well.
--- NOTE | 2024-11-20 00:27 | PC.NURSE ---
reviewed discharge instructions with pt. pt verbalized understanding, no sign of distress
[2024-11-20 00:28] VITALS: BP 120/77; PULSE 74; RESP 16; TEMP 36.7; O2SAT 100
== END 2024-11-20 00:29 | disposition home or self-care (01) ==
PROVIDERS: Physician Assistant Medical; Emergency Provider Emergency Medicine Emergency Medical Services; PCP Internal Medicine
DX: R11.2 Nausea with vomiting, unspecified (principal); R53.1 Weakness; R00.0 Tachycardia, unspecified; Z03.818 Encounter for observation for suspected exposure to other biological agents ruled out; Z79.899 Other long term (current) drug therapy
CPT/HCPCS: 0241U; 36415; 80053; 81003; 83735; 84443; 84484; 84702; 85025; 93005; 99283; 99285

== ENCOUNTER → 2024-11-19 15:33 | Outpatient (BNV) | payer OTHER, SELFPAY | PROVIDERS: Emergency Provider Emergency Medicine Emergency Medical Services; PCP Internal Medicine; Visit Provider Internal Medicine | DX: R00.0 Tachycardia, unspecified (principal) | CPT/HCPCS: 93010 ==

== ENCOUNTER 2024-12-16 14:48 | Emergency (ER) | payer OTHER, SELFPAY ==
--- NOTE | ~2024-12-16 | XR_ITS ---
CLINICAL HISTORY: pain 1 view chest x-ray Comparison: CR/SR - XR CHEST 1V - 07/14/24 16:43 EST Findings: No consolidation or effusion. Normal size heart. No acute fracture. IMPRESSION: 1. No acute findings. This document has been electronically signed by: Marilou King MD on 12/16/2024 18:29:21
--- NOTE | 2024-12-16 15:00 | ECG_ITS ---
Test Reason : TACHY Blood Pressure : */* mmHG Vent. Rate : 102 BPM Atrial Rate : 102 BPM P-R Int : 142 ms QRS Dur : 76 ms QT Int : 376 ms P-R-T Axes : 55 39 31 degrees QTcB Int : 490 ms Sinus tachycardia Nonspecific T wave abnormality Abnormal ECG When compared with ECG of 19-Nov-2024 17:01, T wave inversion now evident in Anterior leads Referred By: Generic ED Physician Electronically Signed By: Murali Tello
[2024-12-16 15:11] VITALS: BP 124/66; PULSE 90; RESP 16; TEMP 36.6; O2SAT 99
--- NOTE | 2024-12-16 15:12 | ED_ITS ---
HPI - General Adult General Chief complaint: General Medical Stated complaint: Chest tightness, heart racing Time Seen by Provider: 12/16/24 18:10 Source: patient Limitations: no limitations History of Present Illness ED Provider: Tiana Hodges PA-C HPI narrative: 39-year-old female with a history of PTSD, generalized anxiety disorder, depression, polyarthralgia, presents with chest pain. Patient states she was sick last week with a stomach bug, she had nausea vomiting, which has since resolved. Today, she felt chest discomfort, unable to describe the nature of her pain. She does admit she has chest pain often that has related to her anxiety. Denies recent cough or cold symptoms, fever, diaphoresis. No abdominal pain. Related Data Home Medications ?Medication ?Instructions ?Recorded ?Confirmed buspirone 30 mg tablet 30 mg PO BID 05/08/23 06/23/24 clonidine HCl 0.1 mg tablet See Rx Instructions .Route .COMPLEX 05/08/23 06/23/24 fluoxetine 40 mg capsule (Prozac) 40 mg PO DAILY 05/08/23 06/23/24 hydroxyzine pamoate 25 mg capsule 25 - 50 mg PO BID PRN anxiety 07/11/23 06/23/24 lamotrigine 100 mg tablet 100 mg PO DAILY 07/11/23 06/23/24 Previous Rx's ?Medication ?Instructions ?Recorded albuterol sulfate 90 mcg/actuation 2 puff inhalation Q4-6H PRN 01/20/24 aerosol inhaler (ProAir HFA) shortness of breath or wheezing #6.7 grams hydroxychloroquine 200 mg tablet See Rx Instructions PO .COMPLEX 06/27/24 #144 tabs prednisone 5 mg tablet See Rx Instructions PO .COMPLEX 06/27/24 #120 tabs Allergies Allergy/AdvReac Type Severity Reaction Status Date / Time oxycodone [From Percocet] Allergy Mild ITCH/HIVES Verified 12/16/24 15:12 BLUE CHEESE Allergy Unknown HIVES Uncoded 12/16/24 15:12 Percocet Allergy Unknown hives Uncoded 12/16/24 15:12 Review of Systems 2 Review of Systems: Yes all other systems are reviewed and are negative Constitutional: Constitutional: Denies fatigue and Denies fever(s) Cardiovascular: Cardiovascular: Reports chest pain and Denies dyspnea Respiratory: Respiratory: Denies cough and Denies dyspnea Gastrointestinal: Gastrointestinal: Denies abdominal pain, Denies diarrhea, Denies nausea and Denies vomiting Endocrine: Endocrine: Denies fatigue [facility] Past Medical History Attestation statement: The following information was validated with the patient. Medical History Major depress dis, severe Scoliosis Mitral and aortic insufficiency Asthma, exercise induced GERD (gastroesophageal reflux disease) History of behavioral and mental health problems Encounter for behavioral health screening Surgical History Dermoid cyst S/P removal of ovarian cyst History of elbow surgery H/O shoulder surgery History of surgery on lower extremity H/O section Family History Family History Mother Mental health disorder Father History of quadruple bypass Social History Social History Household Members: Significant Other, Family and Children Housing: House Alcohol intake: current Alcohol intake frequency: holidays/special occasions only Alcohol type: hard liquor Patient Tobacco Use Status: Never used Tobacco Smoked in Last 30 Days: No e-Cigarette/Vaping Use: Never Used Second Hand Smoke Exposure: No Use of substances other than those prescribed or required for medical reasons: No Advance Directives: No Advance Directives Information Provided: No Do you have a plan to hurt others: No Plan Patient : No service: No Current occupational status: disabled Cognitive needs: No Hearing needs: Yes Vision needs: Yes Physical Exam ED Vital Signs: Vital Signs - 24 hr 12/16/24 15:11 12/16/24 19:53 12/16/24 21:40 Temperature 97.9 F 98.4 F 97.2 F Pulse Rate 90 96 80 Respiratory Rate 16 16 16 Blood Pressure 124/66 115/79 121/71 Pulse Oximetry 99 100 100 Oxygen Delivery Method Room Air Room Air Room Air BMI result Body Mass Index 30.0 Const Other: Alert well-appearing Orientation/consciousness: patient oriented x3 Resp Effort & Inspection: normal respiratory effort Cardio Other: Normal peripheral perfusion Skin Other: Warm dry no rash Neuro General: patient oriented x3, gait normal, no focal motor deficits and CN's II- XI intact bilaterally Psych Other: Cooperative Course Course Course Narrative: jory MONROE is a rapid medical exam performed by Evans Vasquez please refer to primary provider for complete H&P- 39-year-old female presents for evaluation of chest pain and shortness of breath. EKG was performed on arrival which shows sinus tachycardia and anterior T-wave inversions when compared to EKG from 3 weeks ago. Plan for labs including troponin. Medications Administered Discontinued Medications Generic Name Dose Route Start Last Admin Trade Name Freq PRN Reason Stop Dose Admin Ondansetron HCl 4 mg 12/16/24 18:08 12/16/24 18:24 Ondansetron Odt 4 Mg Tab.Rapdis TRANSLINGU 12/16/24 18:09 4 mg ONCE ONE Administration Potassium Chloride 40 meq 12/16/24 18:08 12/16/24 18:23 Potassium Chloride Packet 20 Meq Packet PO 12/16/24 18:09 40 meq ONCE ONE Administration Medical Decision Making Medical Decision Making [facility] Narrative: 39-year-old female with a history of PTSD, generalized anxiety disorder, depression, polyarthralgia, presents with chest pain. Patient states she was sick last week with a stomach bug, she had nausea vomiting, which has since resolved. Today, she felt chest discomfort, unable to describe the nature of her pain. She does admit she has chest pain often that has related to her anxiety. Denies recent cough or cold symptoms, fever, diaphoresis. No abdominal pain. Problem: Psychiatric illness History: Per patient I have considered the following differential diagnoses: ACS, anxiety, chest wall strain, costochondritis, viral syndrome Plan: Screening labs including cardiac enzymes EKG and chest x-ray were obtained from triage. Patient was mildly hypokalemic, likely from her recent episode of likely viral gastroenteritis with nausea vomiting. We will give oral potassium. This is not ACS, she has no risk factors for coronary artery disease, her heart score is 0 I have independently reviewed the following tests: Labs: No leukocytosis, not anemic, no electrolyte abnormality beyond mild hypokalemia at 3.1, troponin negative, not EKG: Sinus tachycardia rate of 102, T-wave inversions anterior leads has been seen in the past, QTC 490 Chest x-ray:Findings: No consolidation or effusion. Normal size heart. No acute fracture. IMPRESSION: 1. No acute findings. Lab Data 12/16/24 16:11 12/16/24 16:11 Labs: Lab Results 12/16/24 12/16/24 Range/Units 16:11 18:27 WBC 6.5 (4.8-10.8) X10*3/uL RBC 4.47 (4.20-5.50) X10*6/uL Hgb 13.3 (12.0-16.0) g/dl Hct 38.1 (37.0-47.0) % MCV 85.2 (80.0-98.0) fL MCH 29.8 (27.0-33.0) pg MCHC 34.9 (31.0-35.0) g/dl RDW 12.6 (11.0-16.0) % Plt Count 307 (160-400) X10*3/uL MPV 9.1 L (9.4-12.3) fL Immature Gran % (Auto) 0.5 H (0.0-0.4) % Neut % (Auto) 66.4 (45-73) % Lymph % (Auto) 26.6 (20-40) % [place] % (Auto) 5.7 (2-11) % Eos % (Auto) 0.5 (0-4) % Baso % (Auto) 0.3 (0-2) % Lymph # (Auto) 1.7 (1.2-4.9) X10*3/uL [place] # (Auto) 0.4 (0.1-1.2) X10*3/uL Eos # (Auto) 0.0 (0.0-0.4) X10*3/uL Baso # (Auto) 0.0 (0.0-0.2) X10*3/uL Abs Immat Gran (auto) 0.03 (0.00-0.03) X10*3/uL Absolute Neuts (auto) 4.3 (2.0-8.3) x10*3/uL Absolute Nucleated RBC 0.000 (0.0-0.012) X10*3/uL Nucleated RBC % (auto) 0.0 (0.0-0.2) /100WBC Sodium 141 (135-145) mmol/L Potassium 3.1 L D (3.3-5.1) mmol/L Chloride 108 (96-108) mmol/L Carbon Dioxide 23 (22-29) mmol/L Anion Gap 13 (12-20) BUN 8 L (9-16) mg/dL Creatinine 0.77 (0.5-1.4) mg/dL Estim Creat Clear Calc 83.8 Estimated GFR > 60 Random Glucose 92 (60-115) mg/dL Calcium 8.5 (8.4-10.2) mg/dL Magnesium 2.0 (1.6-2.6) mg/dL Total Bilirubin 0.4 (0.0-1.0) mg/dL AST 33 H (5-31) U/L ALT 38 H (0-31) U/L Alkaline Phosphatase 61 (39-117) U/L Troponin I High Sens < 2.7 (<3.5-17.0) ng/L Total Protein 6.6 (6.5-8.0) g/dL Albumin 4.0 (3.5-5.0) g/dL Lipase 38 (8-78) U/L Beta HCG, Quant < 2 mIU/mL Urine Color Yellow Urine Appearance Clear Urine pH 6.0 (5.0-9.0) Ur Specific [place] 1.015 (1.005-1.025) Urine Protein Negative (Neg-Trace) mg/dL Urine Glucose (UA) Negative (Negative) mg/dL Urine Ketones Negative (Negative) mg/dL Urine Blood Negative (Negative) Urine Nitrite Negative (Negative) Ur Leukocyte Esterase Negative (Negative) Influenza Type A (PCR) NEGATIVE (Negative) Influenza Type B (PCR) NEGATIVE (Negative) RSV RNA Qual (PCR) NEGATIVE (Negative) SARS-CoV-2 RNA (RT-PCR) NEGATIVE (Negative) Discharge Plan Discharge Clinical Impression: Anxiety, Acute hypokalemia Patient Disposition: Home, Self-Care Instructions: Hypokalemia (ED), Potassium Content of Foods List (ED), Anxiety (ED) Additional Instructions: All of your screening labs including a cardiac enzymes were normal, with the exception that your potassium was a little bit low. See home care instructions. Your EKGs at your baseline in the chest x-ray is clear. Continue to follow up with your primary care provider. Prescriptions: No Action hydroxyzine pamoate 25 mg capsule 25 - 50 mg PO BID PRN (Reason: anxiety) lamotrigine 100 mg tablet 100 mg PO DAILY albuterol sulfate [ProAir HFA] 90 mcg/actuation HFA aerosol inhaler 2 puff inhalation Q4-6H PRN (Reason: shortness of breath or wheezing) Qty: 6.7 0RF fluoxetine [Prozac] 40 mg capsule 40 mg PO DAILY clonidine HCl 0.1 mg tablet See Rx Instructions .ROUTE .COMPLEX Rx Instructions: Take 1/2 tab in the am and 1 tab in the evening. buspirone 30 mg tablet 30 mg PO BID hydroxychloroquine 200 mg tablet See Rx Instructions PO .COMPLEX Qty: 144 0RF Rx Instructions: Take 1 tab twice a day x5 days a week and 1 tab daily x2 days a prednisone 5 mg tablet See Rx Instructions PO .COMPLEX Qty: 120 0RF Rx Instructions: Take 2 tabs daily for 1 month then remain on 1 tab daily Print Language: Danish
[2024-12-16 16:16] LABS: MANUAL DIFF FLAG NO
[2024-12-16 16:17] LABS: Basophils Percent Auto 0.3 % (0-2); Eosinophils Percent Auto 0.5 % (0-4); Hematocrit 38.1 % (37.0-47.0); Hemoglobin 13.3 g/dl (12.0-16.0); Imm Gran Abs Auto 0.03 X10*3/uL (0.00-0.03); Imm Gran Pct Auto 0.5 % (0.0-0.4); Lymphocytes Absolute Auto 1.7 X10*3/uL (1.2-4.9); Lymphocytes Percent Auto 26.6 % (20-40); Mean Corpuscular HGB Conc 34.9 g/dl (31.0-35.0); Mean Corpuscular Hemoglobin 29.8 pg (27.0-33.0); Mean Corpuscular Volume 85.2 fL (80.0-98.0); Mean Platelet Volume 9.1 fL (9.4-12.3); Monocytes Absolute Auto 0.4 X10*3/uL (0.1-1.2); Monocytes Percent Auto 5.7 % (2-11); Neutrophils Absolute Auto 4.3 x10*3/uL (2.0-8.3); Neutrophils Percent Auto 66.4 % (45-73); Platelet Count 307 X10*3/uL (160-400); Red Blood Count 4.47 X10*6/uL (4.20-5.50); Red Cell Distribution Width 12.6 % (11.0-16.0); White Blood Count 6.5 X10*3/uL (4.8-10.8)
[2024-12-16 16:30] LABS: Anion Gap 13 (12-20)
[2024-12-16 16:35] LABS: Alanine Aminotransferase 38 U/L (0-31); Aspartate Amino Transferase 33 U/L (5-31); Bilirubin Total 0.4 mg/dL (0.0-1.0); Blood Urea Nitrogen 8 mg/dL (9-16); Calcium 8.5 mg/dL (8.4-10.2); Carbon Dioxide 23 mmol/L (22-29); Chloride 108 mmol/L (96-108); Creatinine Clr Calc Pharmacy 83.8; Estimated Glomerular Filt Rate > 60; Glucose Random 92 mg/dL (60-115); Lipase 38 U/L (8-78); Potassium 3.1 mmol/L (3.3-5.1); Sodium 141 mmol/L (135-145); Total Protein 6.6 g/dL (6.5-8.0)
[2024-12-16 16:40] LABS: Alkaline Phosphatase 61 U/L (39-117); HCG Quantitative < 2 mIU/mL
[2024-12-16 16:42] LABS: Troponin-I High Sensitivity < 2.7 ng/L (<3.5-17.0)
[2024-12-16 16:57] LABS: Influenza A PCR NEGATIVE (Negative); Influenza B PCR NEGATIVE (Negative); Resp Syncy Virus RNA Qual PCR NEGATIVE (Negative); SARS COV2 PCR INHOUSE NEGATIVE (Negative)
[2024-12-16] MEDS: Potassium Chloride Packet 20 MEQ PACKET 40 MEQ PO (18:23)
[2024-12-16] MEDS: Ondansetron ODT 4 MG TAB.RAPDIS TRANSLINGU (18:24)
[2024-12-16 18:40] LABS: Appearance Urine Clear; Color Urine Yellow; Glucose Urine UA Negative (Negative); Nitrite Urine Negative (Negative); Specific Gravity - Urine 1.015 (1.005-1.025); Urine Blood Negative (Negative); Urine Ketones Negative (Negative); Urine Protein Negative (Neg-Trace)
[2024-12-16 18:41] LABS: Leukocyte Esterase Urine Negative (Negative)
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
[2024-12-16 19:53] VITALS: BP 115/79; PULSE 96; RESP 16; TEMP 36.9; O2SAT 100
[2024-12-16 21:40] VITALS: BP 121/71; PULSE 80; RESP 16; TEMP 36.2; O2SAT 100
[2024-12-16 22:39] VITALS: BP 121/71; PULSE 80; RESP 16; TEMP 36.2; O2SAT 100
== END 2024-12-16 22:39 | disposition home or self-care (01) ==
PROVIDERS: Physician Assistant; Physician Assistant Medical; Emergency Provider Emergency Medicine Emergency Medical Services; PCP Internal Medicine
DX: E87.6 Hypokalemia (principal); F41.9 Anxiety disorder, unspecified; R07.9 Chest pain, unspecified; R11.2 Nausea with vomiting, unspecified; Z03.818 Encounter for observation for suspected exposure to other biological agents ruled out
CPT/HCPCS: 0241U; 71045; 80053; 81003; 83690; 83735; 84484; 84702; 85025; 93005; 99283; 99284

== ENCOUNTER → 2024-12-16 15:00 | Outpatient (BNV) | payer OTHER, SELFPAY | PROVIDERS: Emergency Provider Emergency Medicine Emergency Medical Services; PCP Internal Medicine; Visit Provider Internal Medicine Cardiovascular Disease | DX: R00.0 Tachycardia, unspecified (principal) | CPT/HCPCS: 93010 ==

== ENCOUNTER → 2024-12-16 18:08 | Outpatient (BNV) | payer OTHER, SELFPAY | PROVIDERS: Emergency Provider Emergency Medicine Emergency Medical Services; PCP Internal Medicine; Visit Provider Radiology Diagnostic Radiology | DX: R07.9 Chest pain, unspecified (principal) | CPT/HCPCS: 71045 ==

== ENCOUNTER 2024-12-21 03:40 | Emergency (ER) | payer OTHER, SELFPAY ==
--- NOTE | ~2024-12-21 | XR_ITS ---
CLINICAL HISTORY: sense of FB Left side when swallowing 2 view soft tissue neck Comparison: None Findings: No retropharyngeal soft tissue thickening. Proximal airways are patent. No thickening of the epiglottis or aryepiglottic folds. No pharyngeal overdistention or subglottic airway narrowing. No unusual radiopaque foreign bodies. Grossly unremarkable appearance of the visualized bones. Impression: 1. No radiopaque foreign bodies demonstrated This document has been electronically signed by: Yunior West MD on 12/21/2024 10:06:03
[2024-12-21 03:59] VITALS: BP 98/58; PULSE 84; RESP 16; TEMP 36.4; O2SAT 99; BMI 30.2
[2024-12-21 05:53] VITALS: BP 94/53; PULSE 72; RESP 16; TEMP 36.4; O2SAT 98
[2024-12-21 06:19] LABS: IDNOW Serial# 6674DD1D; Strep A Nucleic Acid Negative (Negative)
--- NOTE | 2024-12-21 07:57 | ED_ITS ---
HPI - General Adult General Chief complaint: General Medical Stated complaint: Throat Pain Time Seen by Provider: 12/21/24 06:55 History of Present Illness ED Provider: Huseyin GUTIÉRREZ narrative: The patient is a 39-year-old female who presents to the emergency room because of a sense of discomfort she feels in her throat with swallowing. This has been bothering her for about 3 days ago. She says that she feels as though something is stuck in her throat. This is more in the left side. She says that when she lays down she feels as though she is choking. No fever, sweats, chills. She can not think of anything that she ate that she might be concerned about in terms of swallowing. Specifically she denies eating any fish or chicken or anything else that might have small bones that might have gotten stuck in her throat. She says a few days ago she had a discomfort in her throat and then coughed up something that she believes was a tonsil stone. Related Data Home Medications ?Medication ?Instructions ?Recorded ?Confirmed buspirone 30 mg tablet 30 mg PO BID 05/08/23 06/23/24 clonidine HCl 0.1 mg tablet See Rx Instructions .Route .COMPLEX 05/08/23 06/23/24 fluoxetine 40 mg capsule (Prozac) 40 mg PO DAILY 05/08/23 06/23/24 hydroxyzine pamoate 25 mg capsule 25 - 50 mg PO BID PRN anxiety 07/11/23 06/23/24 lamotrigine 100 mg tablet 100 mg PO DAILY 07/11/23 06/23/24 Previous Rx's ?Medication ?Instructions ?Recorded albuterol sulfate 90 mcg/actuation 2 puff inhalation Q4-6H PRN 01/20/24 aerosol inhaler (ProAir HFA) shortness of breath or wheezing #6.7 grams hydroxychloroquine 200 mg tablet See Rx Instructions PO .COMPLEX 06/27/24 #144 tabs prednisone 5 mg tablet See Rx Instructions PO .COMPLEX 06/27/24 #120 tabs acetaminophen 500 mg capsule 1,000 mg (2 x 500 mg) PO Q8H PRN 12/21/24 fever or pain #14 caps ibuprofen 400 mg tablet 400 mg PO Q6H PRN pain #14 tabs 12/21/24 Allergies Allergy/AdvReac Type Severity Reaction Status Date / Time oxycodone [From Percocet] Allergy Mild ITCH/HIVES Verified 12/21/24 04:03 BLUE CHEESE Allergy Unknown HIVES Uncoded 12/21/24 04:03 Percocet Allergy Unknown hives Uncoded 12/21/24 04:03 Review of Systems Review of Systems: Yes all other systems are reviewed and are negative REPLACED BY [facility] Past Medical History Medical History Major depress dis, severe Scoliosis Mitral and aortic insufficiency Asthma, exercise induced GERD (gastroesophageal reflux disease) History of behavioral and mental health problems Encounter for behavioral health screening Surgical History Dermoid cyst S/P removal of ovarian cyst History of elbow surgery H/O shoulder surgery History of surgery on lower extremity H/O section Family History Family History Mother Mental health disorder Father History of quadruple bypass Social History Social History Household Members: Significant Other, Family and Children Housing: House Alcohol intake: current Alcohol intake frequency: holidays/special occasions only Alcohol type: hard liquor Patient Tobacco Use Status: Never used Tobacco e-Cigarette/Vaping Use: Never Used Second Hand Smoke Exposure: No Advance Directives: No Advance Directives Information Provided: Yes Do you have a plan to hurt others: No Plan service: No Current occupational status: disabled Cognitive needs: No Hearing needs: Yes Vision needs: Yes Physical Exam ED Vital Signs: Vital Signs - 24 hr 12/21/24 03:59 12/21/24 05:53 12/21/24 10:44 Temperature 97.6 F 97.6 F 97.8 F Pulse Rate 84 72 77 Respiratory Rate 16 16 16 Blood Pressure 98/58 L 94/53 L 108/71 Pulse Oximetry 99 98 97 Oxygen Delivery Method Room Air Room Air Room Air BMI result Body Mass Index 30.2 Const Other: The patient was sleeping when I first encountered her. She seemed to be sleeping peacefully without any difficulty. She awoke to a normal mental status. She did not seem to have any difficulty swallowing or managing her secretions during the interview. Orientation/consciousness: patient oriented x3 HENMT Other: The face is symmetrical. Pharynx is normal. The posterior pharynx is normal. No trismus. No foreign body in the posterior pharynx. No erythema. No exudate. Eyes General: appearance normal, both eyes and all related structures Neck Other: No appreciable adenopathy. The neck seems benign. Resp Effort & Inspection: normal respiratory effort Auscultation: clear to auscultation bilaterally Cardio Rate: regular rate Rhythm: regular rhythm Heart sounds: S1 normal heart sound present and S2 normal heart sound present Skin General skin exam: no rashes or lesions noted Neuro General: patient oriented x3, tone normal, moves all extremities, no focal motor deficits and CN's II-XI intact bilaterally Extrem Other: No peripheral edema Medications Administered Discontinued Medications Generic Name Dose Route Start Last Admin Trade Name Freq PRN Reason Stop Dose Admin Acetaminophen 975 mg 12/21/24 10:19 12/21/24 10:38 Acetaminophen 325 Mg Tablet PO 12/21/24 10:20 975 mg ONCE ONE Administration Al Hydroxide/Mg Hydroxide 30 ml 12/21/24 08:04 12/21/24 08:22 Magnesium Hydrox/Alum Hydrox 30 Ml Oral.Susp PO 12/21/24 08:05 30 ml ONCE ONE Administration Ibuprofen 400 mg 12/21/24 10:19 12/21/24 10:37 Ibuprofen 400 Mg Tablet PO 12/21/24 10:20 400 mg ONCE ONE Administration Sucralfate 1 gm 12/21/24 08:04 12/21/24 08:22 Sucralfate Oral Suspension 1 Gm/10 Ml Oral.Susp PO 12/21/24 08:05 1 gm ONCE ONE Administration Medical Decision Making Medical Decision Making [facility] Narrative: The patient is a 39-year-old female who seems to have fairly frequent use of the emergency room. She comes today complaining of some difficulty or pain with swallowing. She says that she feels like there is something stuck on the left side of her throat. She does not have any change in her voice. She did not seem to be having any difficulty handling her secretions. I do not finding anything abnormal on her physical exam. I observed her while she was sleeping and she seemed to be sleeping easily. She looked well when awake as well. A strep test was run at triage. This was negative. There are no findings on her physical exam to suggest strep throat. A soft tissue x-ray was obtained that does not show any radiopaque foreign body. I ordered a mix of sucralfate and Maalox as a possible soothing drink. She did not like the taste or sensation of this she took very little. She was able to drink water without significant difficulty. My suspicion for foreign body is not very high. She will be treated with ibup rofen and acetaminophen. She will be given the contact information for the ENT office. She should call tomorrow if still having significant discomfort otherwise she should return to the emergency room if she feels acutely worse. Lab Data Labs: Lab Results 12/21/24 Range/Units 06:00 S. pyogenes GrpA MIRA Negative (Negative) Discharge Plan Discharge Clinical Impression: Pain in throat Patient Disposition: Home, Self-Care Additional Instructions: Your x-ray is not showing any obvious foreign body to explain your symptoms on the left side of your throat. My suspicion for a dangerous process is low. I would recommend taking ibuprofen and acetaminophen as needed for a couple of days. My hope is that your symptoms improve. I have provided the name and contact information for the local your Ear, Nose and Throat doctor. I would call the ENT office if symptoms continue office, otherwise follow up with your regular doctor. If you feel that your symptoms are getting worse or if you feel you can not swallow your own saliva or if you feel you have a change in your voice or develop a fever return to the emergency room for re-evaluation. Prescriptions: New ibuprofen 400 mg tablet 400 mg PO Q6H PRN (Reason: pain) Qty: 14 0RF acetaminophen 500 mg capsule 1,000 mg PO Q8H PRN (Reason: fever or pain) Qty: 14 0RF No Action hydroxyzine pamoate 25 mg capsule 25 - 50 mg PO BID PRN (Reason: anxiety) lamotrigine 100 mg tablet 100 mg PO DAILY albuterol sulfate [ProAir HFA] 90 mcg/actuation HFA aerosol inhaler 2 puff inhalation Q4-6H PRN (Reason: shortness of breath or wheezing) Qty: 6.7 0RF fluoxetine [Prozac] 40 mg capsule 40 mg PO DAILY clonidine HCl 0.1 mg tablet See Rx Instructions .ROUTE .COMPLEX Rx Instructions: Take 1/2 tab in the am and 1 tab in the evening. buspirone 30 mg tablet 30 mg PO BID hydroxychloroquine 200 mg tablet See Rx Instructions PO .COMPLEX Qty: 144 0RF Rx Instructions: Take 1 tab twice a day x5 days a week and 1 tab daily x2 days a prednisone 5 mg tablet See Rx Instructions PO .COMPLEX Qty: 120 0RF Rx Instructions: Take 2 tabs daily for 1 month then remain on 1 tab daily Referrals: Bandar Smith [Physician] - (painful swallowing, sensation of throat foreign body) Vanessa Gonzalez MD [Primary Care Provider] - Interventions: ED Discharge Assessment Last Done: 12/21/24 10:44 Discharge Date/Time: 12/21/24 10:45 Print Language: Cymraes
[2024-12-21] MEDS: Sucralfate Oral Suspension 1 GM/10 ML ORAL.SUSP PO (08:22)
[2024-12-21] MEDS: Magnesium Hydrox/Alum Hydrox 30 ML ORAL.SUSP PO (08:22)
[2024-12-21] MEDS: Ibuprofen 400 MG TABLET PO (10:37)
[2024-12-21] MEDS: Acetaminophen 325 MG TABLET 975 MG PO (10:38)
[2024-12-21 10:44] VITALS: BP 108/71; PULSE 77; RESP 16; TEMP 36.6; O2SAT 97
== END 2024-12-21 10:45 | disposition home or self-care (01) ==
PROVIDERS: Emergency Medicine; Emergency Provider Emergency Medicine; PCP Internal Medicine
DX: R07.0 Pain in throat (principal); R13.10 Dysphagia, unspecified; Z79.899 Other long term (current) drug therapy
CPT/HCPCS: 70360; 87651; 99283

== ENCOUNTER → 2024-12-21 08:04 | Outpatient (BNV) | payer OTHER, SELFPAY | PROVIDERS: Emergency Provider Emergency Medicine; PCP Internal Medicine; Visit Provider Radiology Diagnostic Radiology | DX: R22.1 Localized swelling, mass and lump, neck (principal) | CPT/HCPCS: 70360 ==

== ENCOUNTER 2025-06-25 08:21 | Outpatient (AMB) | payer OTHER, SELFPAY ==
[2025-06-25 08:29] VITALS: BP 136/74; PULSE 112; TEMP 36.3; O2SAT 97; BMI 30.5
--- NOTE | 2025-06-25 08:29 | MHC.PC.OV ---
Vital Signs 06/25/25 08:29 Height 5 ft Weight 156 lb 6 oz BMI 30.5 BP 136/74 Blood Pressure Location Lt brachial Position Sitting Pulse 112 H Pulse Source Pulse Oximeter Temp 97.3 F Temp Source Temporal Artery Scan Pulse Oximetry (%) 97 Oxygen Delivery Method Room Air Intake Visit Reasons: pe Intake Note: Patient here for a physical exam Remote Sensing Specialist Required: No Accompanied by: Self / Same As Patient Allergies oxycodone (From Percocet) Allergy (Mild, Verified 06/25/25 09:04) ITCH/HIVES BLUE CHEESE Allergy (Unknown, Uncoded 06/25/25 09:04) HIVES Percocet Allergy (Unknown, Uncoded 06/25/25 09:04) hives Medication List - Last Reconciled 06/25/25 by Vanessa Cummins MD acetaminophen 1,000 mg (2 x 500 mg) PO Q8H PRN albuterol sulfate 90 mcg/actuation (ProAir HFA) 2 puffs inhalation Q4-6H PRN clonidine HCl Take 1/2 tab in the am and 1 tab in the evening. fluoxetine (Prozac) 40 mg PO DAILY hydroxychloroquine Take 1 tab twice a day x5 days a week and 1 tab daily x2 days a hydroxyzine pamoate 25 - 50 mg PO BID PRN ibuprofen 400 mg PO Q6H PRN lamotrigine 100 mg PO DAILY Tobacco use date assessed: 06/25/25 Dental Screening Dental Screen Date: 06/25/25 Did you have a dental visit in the last 12 months?: Yes Did you have a dental problem in the last 6 months where you did not have access to dental care?: No Was dental information given to patient?: Patient has dentist HPI HPI Comments History of Present Illness Details The patient is a 40-year-old female presenting for an annual physical exam. She reports dysuria and testing confirmed a urinary tract infection; she notes that while she has had UTIs before, this is the first time she has experienced pain with urination. Her current medications include Tylenol as needed, a rescue inhaler, clonidine, fluoxetine for depression with anxiety, and hydroxychloroquine as needed for severe anxiety. She has known allergies to Percocet and blue cheese. Her surgical history is notable for removal of a dermoid cyst on the left ovary, elbow surgery, shoulder surgery, a section, and orthopedic surgery on her lower right leg and upper left leg with pins and rods for femur, tibial, and fibular fractures. Her family history includes a mother with mental health disorders and a father with a history of quadruple bypass and kidney issues. The patient denies smoking and reports drinking alcohol rarely on holidays and special occasions. Her last mammogram was in 2022, and she is due for another. She is unsure of the date of her last Pap smear but notes they are performed infrequently due to negative results. [facility] Medical History (Updated 06/25/25 @ 10:39 by Vanessa Cummins MD) Major depress dis, severe Scoliosis Mitral and aortic insufficiency Asthma, exercise induced GERD (gastroesophageal reflux disease) History of behavioral and mental health problems Encounter for behavioral health screening Surgical History Dermoid cyst S/P removal of ovarian cyst History of elbow surgery H/O shoulder surgery History of surgery on lower extremity H/O section Family History Mother Mental health disorder Father History of quadruple bypass Social History Household Members: Significant Other, Family and Children Housing: House Alcohol intake: current Alcohol intake frequency: holidays/special occasions only Alcohol type: hard liquor Patient Tobacco Use Status: Never used Tobacco e-Cigarette/Vaping Use: Never Used Second Hand Smoke Exposure: No service: No Current occupational status: disabled Cognitive needs: No Hearing needs: Yes Vision needs: Yes Questionnaire PHQ-9 Over the last 2 weeks, how often have you been bothered by any of the following problems? 1. Little interest or pleasure in doing things: not at all 2. Feeling down, depressed, or hopeless: not at all 3. Trouble falling or staying asleep, or sleeping too much: several days 4. Feeling tired or having little energy: several days 5. Poor appetite or overeating: not at all 6. Feeling bad about yourself - or that you are a failure or have let yourself or your family down: not at all 7. Trouble concentrating on things, such as reading the newspaper or watching television: not at all 8. Moving or speaking so slowly that other people could have noticed. Or the opposite - being so fidgety or restless that you have been moving around a lot more than usual: not at all 9. Thoughts that you would be better off or of hurting yourself in some way: not at all Total score: 2 Depression Screening Interpretation: Positive Depression Screening Follow-up: Existing condition, In treatment, Community Mental Health Worker F/U and Follow-up Visit Requested Depression Screening Done: Yes 01567 - PHQ-9 Billing: Yes Source: Developed by Drs. Miller Medrano, Aisha Oswald, Maximino La and colleagues, with an educational nelson from [employer]. Thrive Questionnaire Date Thrive assessed: 06/24/25 I am a: Patient What is your living situation today?: I have a steady place to live Within the past 12 months, did the food you bought not last and you didn't have the money to get more?: Never true Within the past 12 months, did you worry whether your food would run out before you got money to buy more?: Sometimes True Do you have trouble paying for medicines?: No Do you have trouble getting transportation to medical appointments?: No Do you have trouble paying your heating and electricity bill?: No Do you have trouble taking care of your child, family member or friend?: No Do you have trouble with day-to-day activities such as bathing, preparing meals, shopping, managing finances, etc.?: No Are you currently unemployed and looking for a job?: No Are you interested in more education?: No Please select the resources that you would like help with: None Currently or been in a relationship where the following occur: No concerns reported THRIVE Score: 1 AUDIT C Alcohol Use Questionnaire (AUDIT-C) 1. How often do you have a drink containing alcohol?: Monthly or less 2. How many drinks containing alcohol do you have on a typical day when you are drinking?: 1 or 2 3. How often do you have six or more drinks on one occasion?: Never Total Score: 1 Score Reviewed/Action Taken: No ERIC-7 AMB Questionnaire ERIC-7 Date ERIC - 7 assessed: 06/25/25 Feeling nervous, anxious, or on edge: 2 = More than half the days Not being able to stop or control worryin = Several days Worrying too much about different things: 1 = Several days Trouble relaxin = Several days Being so restless that it is hard to sit still: 0 = Not at all Becoming easily annoyed or irritable: 1 = Several days Feeling afraid as if something awful might happen: 0 = Not at all Total ERIC-7 score (0-4 normal; 5-9 mild; 10-14 moderate; 15-21 severe): 6 Source: Developed by Drs. Miller Medrano, Aisha Oswald, Maximino La and colleagues, with an educational nelson from [employer]. ERIC-7 Assessment Billing ERIC-7 Assessment Tool: ERIC-7 Assessment 61125 Review of Systems Const All systems reviewed & are unremarkable except as noted in HPI and below Card Denies chest pain at rest, Denies chest pain with activity, Denies edema, Denies irregular heart rhythm, Denies claudication, Denies dyspnea, Denies dyspnea on exertion, Denies orthopnea, Denies paroxysmal nocturnal dyspnea and Denies slow heart rate Resp Denies cough, Denies dyspnea and Denies dyspnea on exertion GI Denies abdominal pain, Denies change in bowel habits, Denies excessive flatus, Denies nausea and Denies vomiting Denies urinary incontinence, Denies urinary hesitancy and Denies urinary urgency Neuro Denies lack of coordination Physical exam (Primary Care) Vital Signs: Last Vital Signs Temp 97.3 F 06/25/25 08:29 Pulse 112 H 06/25/25 08:29 BP 136/74 06/25/25 08:29 Pulse Ox 97 06/25/25 08:29 Oxygen Delivery Method Room Air 06/25/25 08:29 BMI result Body Mass Index 30.5 BMI Assessment/Plan discussion: High BMI High, discussed plan: lifestyle, weight reduction, dietary and physical activity Tobacco/Smoking Status: Tobacco use Status Tobacco use date assessed 06/25/25 06/25/25 08:31 Patient Tobacco Use Status Never used Tobacco 06/25/25 08:31 e-Cigarette/Vaping Use Never Used 06/25/25 08:31 PHQ-9: PHQ-9 Score PHQ-9: Total score 2 06/25/25 09:10 Depression Screening Interpretation: Positive Depression Screening Follow-up: Existing condition, In treatment, Community Mental Health Worker F/U and Follow-up Visit Requested Thrive Assessment: Date of Thrive Assessment Date Thrive assessed 06/24/25 06/25/25 08:31 Currently or been in a relationship where the following occur: No concerns reported [facility] Head: Yes normal to inspection, Yes normocephalic and Yes atraumatic Ears: external ears normal Eyes General: appearance normal, both eyes and all related structures Eyelids: Yes eyelids normal Conjunctivae: conjunctivae normal Neck Neck: Yes normal visual inspection and Yes supple Resp Effort & Inspection: normal respiratory effort Auscultation: clear to auscultation bilaterally Cardio Jugular venous distension: no JVD Rate: regular rate Rhythm: regular rhythm Heart sounds: S1 normal heart sound present and S2 normal heart sound present GI Inspection: Yes normal to inspection Palpation (GI): Soft to palpation and nontender Auscultation: normal bowel sounds Skin General skin exam: no rashes or lesions noted Neuro General: no focal motor deficits Extrem General: Yes full ROM Psych Appearance: grossly normal Results AMB Urinalysis, Automated UA Leukoctes 125 Dodie/uL Last Edit by Renita Morales CMA on 06/25/25 08:56 UA Nitrite Negative Last Edit by Renita Morales CMA on 06/25/25 08:56 UA Urobilinogen 0.2 mg/dL Last Edit by Renita Morales CMA on 06/25/25 08:56 UA Protein 100 mg/dL Last Edit by Renita Morales CMA on 06/25/25 08:56 UA pH 6.0 Last Edit by Renita Morales CMA on 06/25/25 08:56 UA Blood 200 Jair/uL Last Edit by Renita Morales CMA on 06/25/25 08:56 UA Specific [place] 1.015 Last Edit by Renita Morales CMA on 06/25/25 08:56 UA Ketone Negative Last Edit by Renita Morales CMA on 06/25/25 08:56 UA Bilirubin 0 mg/dL Last Edit by Renita Morales CMA on 06/25/25 08:56 UA Glucose 0 mg/dL Last Edit by Renita Morales CMA on 06/25/25 08:56 Results Reviewed Results Reviewed: Laboratory Last Values Urine pH (Auto) 6.0 06/25/25 08:50 Specific [place] (Auto) 1.015 06/25/25 08:50 Urine Protein (Auto) 100 mg/dL 06/25/25 08:50 Glucose (UA)(Auto) 0 mg/dL 06/25/25 08:50 Urine Ketones (Auto) Negative 06/25/25 08:50 Urine Blood (Auto) 200 Jair/uL 06/25/25 08:50 Urine Nitrite (Auto) Negative 06/25/25 08:50 Urine Bilirubin (Auto) 0 mg/dL 06/25/25 08:50 Urine Urobilinogen (Auto) 0.2 mg/dL 06/25/25 08:50 Leukocyte Esterase (Auto) 125 Dodie/uL 06/25/25 08:50 Coding Level of Care Code Est Pt Level 3 (76175) Est Pt Prev Care 40-64y(58738) Diagnoses Physical exam Z00.00 Mild major depression F32.0 UTI (urinary tract infection) N39.0 Additional Codes ERIC-7 Assessment Billing - ERIC-7 Assessment Tool: ERIC-7 Assessment 50899 ([id number]) PHQ-9 - 39925 - PHQ-9 Billing: Yes ([id number]) Time Spent (min) 33 Assessment & Plan Assessment & Plan (1) Physical exam: Code(s): Z00.00 - Encounter for general adult medical examination without abnormal findings Category: Medical (2) Mild major depression: Comment: Follow by psychiatry Code(s): F32.0 - Major depressive disorder, single episode, mild Category: Medical (3) UTI (urinary tract infection): Code(s): N39.0 - Urinary tract infection, site not specified Category: Medical Plan Plan 1. Physical exam Repeat in a year. 1. Urinary Tract Infection The patient is diagnosed with a urinary tract infection based on urinalysis results after presenting with dysuria. A urine culture will be sent for further analysis, and a 3-day course of an antibiotic will be prescribed. 2. Depression With Anxiety The patient manages depression with anxiety using fluoxetine, with as-needed clonidine and hydroxychloroquine. Plan is to continue current medication regimen. Orders: Orders Urine Culture Today N39.0 - Urinary tract infection, site not specified Comprehensive [place]. Panel Fast Today Z00.00 - Encounter for general adult medical examination without abnormal findings AMB Urinalysis Automated Today Z13.9 - Encounter for screening, unspecified MM tomosynthesis screening BI Today Z12.31 - Encounter for screening mammogram for malignant neoplasm of breast Lipid Panel Today E78.5 - Hyperlipidemia, unspecified Medications: New albuterol sulfate 90 mcg/actuation (Ventolin HFA) 2 puffs inhalation Q6H PRN 6.7 grams 1RF shortness of breath or wheezing 30 days J45.30 - Mild persistent asthma, uncomplicated sulfamethoxazole-trimethoprim 800-160 mg (Bactrim DS) 1 tab PO BID 6 tabs 0RF 3 days Refilled albuterol sulfate 90 mcg/actuation (ProAir HFA) 2 puffs inhalation Q4-6H PRN 6.7 grams 0RF shortness of breath or wheezing
== END 2025-06-25 09:16 | disposition home or self-care (01) ==
LOC: HO.HMCH 08:22
PROVIDERS: PCP Internal Medicine; Visit Provider Internal Medicine
DX: Z00.00 Encounter for general adult medical examination without abnormal findings (principal); N39.0 Urinary tract infection, site not specified; F32.0 Major depressive disorder, single episode, mild

== ENCOUNTER 2025-06-25 08:21 | Outpatient (REF) | payer OTHER, SELFPAY | END 2025-06-25 08:22 | disposition home or self-care (01) | LOC: HO.LAB 08:21 | PROVIDERS: PCP Internal Medicine; Visit Provider Internal Medicine | DX: Z00.00 Encounter for general adult medical examination without abnormal findings (principal); F32.0 Major depressive disorder, single episode, mild; N39.0 Urinary tract infection, site not specified; Z79.899 Other long term (current) drug therapy | CPT/HCPCS: 81003; 87086; 87088; 87186; 96127; 99212; 99396 ==